=== PATIENT | male | born 1960 | race Caucasian/White ===

== ENCOUNTER 2017-12-12 16:58 | Inpatient (IN) ==
[2017-12-12 17:26] LABS: Basophils # 0.1 K/mcL (0.0-0.2); Basophils % 0.6 %; Eosinophils # 0.3 K/mcL (0.0-0.6); Eosinophils % 4.1 %; Hematocrit 38.1 % (37.5-50.1); Hemoglobin 13.2 g/dL (12.9-16.9); Immature Granulocytes % 0.6 % (0-4); Lymphocytes # 2.2 K/mcL (0.6-4.6); Lymphocytes % 26.2 %; Mean Corpuscular HGB Conc 34.6 g/dL (31.6-35.5); Mean Corpuscular Volume 95.3 fL (83.0-100.0); Mean Platelet Volume 9.2 fL (9.4-12.4); Monocytes # 0.5 K/mcL (0.0-1.3); Monocytes % 6.6 %; Neutrophils # 5.1 K/mcL (1.6-8.9); Platelet Count 198 K/mcL (140-400); Red Cell Distribution Width 15.3 % (11.5-14.5); Segmented Neutrophils % 61.9 %
[2017-12-12 17:32] LABS: Bilirubin,Urine Negative (Negative); Blood,Urine Negative (Negative); Clarity,Urine Clear (Clear); Color,Urine Yellow (Yellow); Glucose,Urine (UA) >=1000 mg/dL (Normal); Ketones,Urine Negative (Negative); Leukocyte Esterase,Urine Negative (Negative); Nitrite,Urine Negative (Negative); Protein,Urine 100 mg/dL (Neg-Trace); Specific Gravity,Urine 1.012 (1.010-1.025); Urobilinogen,Urine Normal (Normal)
[2017-12-12 17:34] LABS: Bacteria,Urine None Seen per hpf (None-Few); Hyaline Casts,Urine None Seen per lpf (None-Few); RBC,Urine 0-3 per hpf (0-3); Squamous Epithelial Cell,Urine Moderate per lpf (None-Few); WBC,Urine 0-3 per hpf (0-3)
[2017-12-12 17:56] LABS: Amphetamine Screen,Urine Negative ng/mL (Cutoff=1000); Barbiturate Screen,Urine Negative ng/mL (Cutoff=200); Benzodiazepines Screen,Urine Negative ng/mL (Cutoff=200); Cannabinoid Screen,Urine Negative ng/mL (Cutoff = 50); Cocaine Screen,Urine Negative ng/mL (Cutoff= 300); Opiate Screen,Urine Negative ng/mL (Cutoff=300); Phencyclidine Screen,Urine Negative ng/mL (Cutoff=25)
[2017-12-12 17:57] LABS: Acetaminophen < 10 mcg/mL (10-20); BUN/Creatinine Ratio 14 (6-26); Blood Urea Nitrogen 15 mg/dL (6-20); Carbon Dioxide 26 mEq/L (23-29); Chloride 97 mEq/L (98-107); Ethanol < 10 mg/dL (Less than 10); Glucose 228 mg/dL (70-105); Osmolality,Calculated 284 (280-300); Potassium 3.9 mEq/L (3.5-5.1); Salicylate < 2.5 mg/dL (15.0-30.0); Sodium 133 mEq/L (136-145); eGFR For Non-African Americans > 60 (> 60)
--- NOTE | 2017-12-12 18:17 | Emergency Department Note ---
Disposition Clinical Impression: Suicidal ideations Disposition: Admitted As Inpatient Condition: Good Instructions: Suicide Prevention for Adults (ED) Reasons to Return/Additional Instructions: YOU ARE TO BE TRANSFERRED TO THE PSYCH FACILITY THAT HAS ACCEPTED YOUR TRANSFER ARRANGED BY AN OUTSIDE FACILITY Referrals: NONE,PCP [Primary Care Provider] - Forms: ED Satisfaction Letter Time of Disposition: 18:19 Psych HPI - General Chief Complaint: ED Psychiatric Symptoms Stated Complaint: SI Time Seen by Provider: 12/12/17 17:06 Source: patient, EMS Mode of arrival: EMS Limitations: no limitations Nursing Notes Reviewed: Yes Vital Signs Reviewed: Yes - History of Present Illness HPI Narrative: 57 year old male presented to the ED for medical clearance after being accepted to a [facility] facility. Sil has a history of sucuidial attemp in the past iwth overdsoe and states taht he has had increased stressors in his life and the thoughts of hurting himself are increasing and that he has plans to hang himself today. Sil states that othersie he has a histroy of depression adn anxiety. Sil dnies any other symptoms at this time. He is an alcoholic and diabetic Constitutional: Denies: fever, chills, weakness, weight change Eyes: Denies: eye pain, eye discharge, vision change ENT ED: Denies: ear pain, throat pain, dental pain, hearing loss, epistaxis, congestion, dysphagia Cardiovascular: Denies: chest pain, palpitations, dyspnea on exertion, edema, syncope Respiratory: Denies: cough, dyspnea, wheezes, hemoptysis, stridor Gastrointestinal: Denies: abdominal pain, nausea, vomiting, diarrhea, constipation, hematemesis, melena, hematochezia Genitourinary: Denies: urgency, dysuria, frequency, hematuria Musculoskeletal: Denies: back pain, neck pain, arthralgia, myalgia Integumentary: Denies: rash, abrasion, lesions Neurological: Denies: headache, weakness, numbness, paresthesias, confusion, abnormal gait, vertigo Psychiatric: Reports: suicidal thoughts. Denies: anxiety, depression, homicidal thoughts, auditory hallucinations, visual hallucinations Endocrine: Denies: fatigue Hematological/Lymphatic: Denies: easy bleeding, easy bruising Allergic/Immunologic: Denies: facial swelling, urticaria Past Medical History - Past Medical History Medical history: Reports: diabetes, GERD, hyperlipidemia, hypertension Psychiatric history: Reports: depression, PTSD, prior suicide attempt - Social History Smoking Status: Current every day smoker Alcohol use: Reports: none Drug use: Reports: none Physical Exam - General Limitations: no limitations General appearance: alert, in no apparent distress - Head Head exam: atraumatic, normocephalic, normal inspection - Eye Eye exam: Present: normal appearance, PERRL, EOMI - Expanded Eye Exam Pupils: Bilateral: reactive - ENT ENT exam: normal exam, normal oropharynx, mucous membranes moist - Expanded ENT Exam External ear exam: Present: normal external inspection Mouth exam: Present: normal external inspection Teeth exam: Present: normal inspection Throat exam: Present: normal inspection - Neck Neck exam: Present: normal inspection, full ROM, trachea midline - Chest Chest inspection: Present: normal inspection, symmetric chest wall rise - Respiratory Respiratory exam: Present: normal lung sounds bilaterally - Cardiovascular Cardiovascular exam: Present: regular rate, normal rhythm, normal heart sounds - Abdominal Exam Abdominal exam: Present: soft, Non-Tender. Absent: tenderness, distention, guarding, rebound, rigidity - Extremities Exam Extremities exam: Present: normal inspection, full ROM. Absent: tenderness, pedal edema - Expanded Upper Extremity Exam Shoulder exam: Present: normal inspection, full ROM Arm exam: Present: normal inspection, full ROM Elbow exam: Present: normal inspection, full ROM Forearm/Wrist exam: Present: normal inspection, full ROM Hand exam: Present: normal inspection, full ROM Vascular exam: Normal: capillary refill, radial pulse - Expanded Lower Extremity Exam Hip/Pelvis exam: Present: normal inspection, full ROM Upper leg exam: Present: normal inspection, full ROM Knee exam: Present: normal inspection, full ROM Lower leg exam: Present: normal inspection, full ROM Ankle exam: Present: normal inspection, full ROM Foot/toe exam: Present: normal inspection, full ROM Neurovascular/Tendon exam: Absent: motor deficit, sensory deficit, tendon deficit - Back Exam Back exam: Present: normal inspection, full ROM. Absent: tenderness - Neurological Exam Neurological exam: Present: alert, oriented X3 - Expanded Neurological Exam Patient oriented to: Present: person, place, time Coma Scale Eye Opening: Spontaneous Coma Scale Motor Response: Obeys Commands Coma Scale Verbal Response: Oriented Coma Scale Total: 15 - Psychiatric Psychiatric exam: Present: normal affect, normal mood - Skin Skin exam: Present: warm, dry, intact, normal color Course Course Narrative: we will do labs and UA for medical clearance and then discharge to authorities for transport back to the [facility] facility - Reevaluation(s) Reevaluation #1: sil has been medically cleared. Transport is being arranged for transfer back. Sil is stable and calm Time: 18:19 - Consultations Consultation #1: discussed with 1A in passing and apparantly he has been accepted to . WE will place bed request and decision to admit now. Patient will be transported to the [address] [place] [address] department now Time: 18:26 Vital Signs Temperature 98.6 F 12/12/17 17:05 Pulse Rate 94 12/12/17 17:05 Respiratory Rate 18 12/12/17 17:05 Blood Pressure 173/108 12/12/17 17:05 O2 Sat by Pulse Oximetry 96 12/12/17 17:05 Temperature 98.6 F 12/12/17 17:05 Pulse Rate 94 12/12/17 17:05 Respiratory Rate 18 12/12/17 17:05 Blood Pressure 173/108 12/12/17 17:05 O2 Sat by Pulse Oximetry 96 12/12/17 17:05 Oxygen Delivery Oxygen Delivery Room Air Psych - Lab Data Result diagrams: 12/12/17 17:13 12/12/17 17:13 Lab Results 12/12/17 12/12/17 12/12/17 Range/Units 17:13 17:13 17:18 WBC 8.2 (4.3-11.1) K/mcL RBC 4.00 L (4.19-5.50) M/mcL Hgb 13.2 (12.9-16.9) g/dL Hct 38.1 (37.5-50.1) % MCV 95.3 (83.0-100.0) fL MCH 33.0 (28.0-33.3) pg MCHC 34.6 (31.6-35.5) g/dL RDW 15.3 H (11.5-14.5) % Plt Count 198 (140-400) K/mcL MPV 9.2 L (9.4-12.4) fL Immature Gran % 0.6 (0-4) % Seg Neutrophils % 61.9 % Lymphocytes % 26.2 % Monocytes % 6.6 % Eosinophils % 4.1 % Basophils % 0.6 % Neutrophils # 5.1 (1.6-8.9) K/mcL Lymphocytes # 2.2 (0.6-4.6) K/mcL Monocytes # 0.5 (0.0-1.3) K/mcL Eosinophils # 0.3 (0.0-0.6) K/mcL Basophils # 0.1 (0.0-0.2) K/mcL Sodium 133 L (136-145) mEq/L Potassium 3.9 (3.5-5.1) mEq/L Chloride 97 L (98-107) mEq/L Carbon Dioxide 26 (23-29) mEq/L BUN 15 (6-20) mg/dL Creatinine 1.11 (0.70-1.30) mg/dL Est GFR ( Amer) > 60 (> 60) Est GFR (Non-Af Amer) > 60 (> 60) BUN/Creatinine Ratio 14 (6-26) Glucose 228 H (70-105) mg/dL Calculated Osmolality 284 (280-300) Calcium 10.0 (8.6-10.3) mg/dL Urine Color Yellow (Yellow) Urine Clarity Clear (Clear) Urine pH 6.0 (5.0-8.0) pH Units Ur Specific Muse 1.012 (1.010-1.025) Urine Protein 100 H (Neg-Trace) mg/dL Urine Glucose (UA) >=1000 H (Normal) mg/dL Urine Ketones Negative (Negative) mg/dL Urine Blood Negative (Negative) Urine Nitrite Negative (Negative) Urine Bilirubin Negative (Negative) Urine Urobilinogen Normal (Normal) mg/dL Ur Leukocyte Esterase Negative (Negative) Urine Microscopic RBC 0-3 (0-3) per hpf Urine Microscopic WBC 0-3 (0-3) per hpf Ur Squamous Epith Cells Moderate H (None-Few) per lpf Urine Bacteria None Seen (None-Few) per hpf Hyaline Casts None Seen (None-Few) per lpf Salicylates < 2.5 L (15.0-30.0) mg/dL Urine Opiates Screen (Rpqpvb=894) ng/mL Acetaminophen < 10 L (10-20) mcg/mL Ur Barbiturates Screen (Yebpqg=484) ng/mL Ur Phencyclidine Scrn (Cutoff=25) ng/mL Ur Amphetamines Screen (Tfgjxg=5462) ng/mL U Benzodiazepines Scrn (Xaikpo=029) ng/mL Urine Cocaine Screen (Cutoff= 300) ng/mL U Marijuana (THC) Screen (Cutoff = 50) ng/mL Ur Drug Screen Interp Ethyl Alcohol < 10 (Less than 10) mg/dL 12/12/17 Range/Units 17:18 WBC (4.3-11.1) K/mcL RBC (4.19-5.50) M/mcL Hgb (12.9-16.9) g/dL Hct (37.5-50.1) % MCV (83.0-100.0) fL MCH (28.0-33.3) pg MCHC (31.6-35.5) g/dL RDW (11.5-14.5) % Plt Count (140-400) K/mcL MPV (9.4-12.4) fL Immature Gran % (0-4) % Seg Neutrophils % % Lymphocytes % % Monocytes % % Eosinophils % % Basophils % % Neutrophils # (1.6-8.9) K/mcL Lymphocytes # (0.6-4.6) K/mcL Monocytes # (0.0-1.3) K/mcL Eosinophils # (0.0-0.6) K/mcL Basophils # (0.0-0.2) K/mcL Sodium (136-145) mEq/L Potassium (3.5-5.1) mEq/L Chloride (98-107) mEq/L Carbon Dioxide (23-29) mEq/L BUN (6-20) mg/dL Creatinine (0.70-1.30) mg/dL Est GFR ( Amer) (> 60) Est GFR (Non-Af Amer) (> 60) BUN/Creatinine Ratio (6-26) Glucose (70-105) mg/dL Calculated Osmolality (280-300) Calcium (8.6-10.3) mg/dL Urine Color (Yellow) Urine Clarity (Clear) Urine pH (5.0-8.0) pH Units Ur Specific Muse (1.010-1.025) Urine Protein (Neg-Trace) mg/dL Urine Glucose (UA) (Normal) mg/dL Urine Ketones (Negative) mg/dL Urine Blood (Negative) Urine Nitrite (Negative) Urine Bilirubin (Negative) Urine Urobilinogen (Normal) mg/dL Ur Leukocyte Esterase (Negative) Urine Microscopic RBC (0-3) per hpf Urine Microscopic WBC (0-3) per hpf Ur Squamous Epith Cells (None-Few) per lpf Urine Bacteria (None-Few) per hpf Hyaline Casts (None-Few) per lpf Salicylates (15.0-30.0) mg/dL Urine Opiates Screen Negative (Gsodcf=256) ng/mL Acetaminophen (10-20) mcg/mL Ur Barbiturates Screen Negative (Lqjwwc=475) ng/mL Ur Phencyclidine Scrn Negative (Cutoff=25) ng/mL Ur Amphetamines Screen Negative (Uephfv=4765) ng/mL U Benzodiazepines Scrn Negative (Doafym=153) ng/mL Urine Cocaine Screen Negative (Cutoff= 300) ng/mL U Marijuana (THC) Screen Negative (Cutoff = 50) ng/mL Ur Drug Screen Interp See Below Ethyl Alcohol (Less than 10) mg/dL Psychiatric Medical Clearance - Medical Clearance Checklist Medical History: No Social History Section defined Current Vitals: Last Vital Signs Temp 98.6 F 12/12/17 17:05 Pulse 94 12/12/17 17:05 Resp 18 12/12/17 17:05 BP 173/108 12/12/17 17:05 Pulse Ox 96 12/12/17 17:05 Psychiatric Lab Panel: Drug Levels and Toxicity 12/12/17 12/12/17 17:13 17:18 Urine Opiates Screen Negative Acetaminophen < 10 L Ur Barbiturates Screen Negative Ur Phencyclidine Scrn Negative Ur Amphetamines Screen Negative U Benzodiazepines Scrn Negative Urine Cocaine Screen Negative U Marijuana (THC) Screen Negative Ethyl Alcohol < 10 Abnormal Labs: Abnormal lab results RBC 4.00 M/mcL (4.19-5.50) L 12/12/17 17:13 RDW 15.3 % (11.5-14.5) H 12/12/17 17:13 MPV 9.2 fL (9.4-12.4) L 12/12/17 17:13 Sodium 133 mEq/L (136-145) L 12/12/17 17:13 Chloride 97 mEq/L (98-107) L 12/12/17 17:13 Glucose 228 mg/dL (70-105) H 12/12/17 17:13 Urine Protein 100 mg/dL (Neg-Trace) H 12/12/17 17:18 Urine Glucose (UA) >=1000 mg/dL (Normal) H 12/12/17 17:18 Ur Squamous Epith Cells Moderate per lpf (None-Few) H 12/12/17 17:18 Salicylates < 2.5 mg/dL (15.0-30.0) L 12/12/17 17:13 Acetaminophen < 10 mcg/mL (10-20) L 12/12/17 17:13 Statement of Medical Clearance: I have evaluated the patient, reviewed diagnostic information, and certify that the patient's medical condition is sufficiently stable that transfer to the psychiatric unit does not pose a significant risk of deterioration.
[2017-12-12] MEDS ORDERED: MOM Conc 10 ML UD.LIQ PO PRN (19:08)
[2017-12-12] MEDS ORDERED: *HR* LORazepam 1 MG TABLET PO PRN (19:08)
[2017-12-12] MEDS ORDERED: Mag Hydrox/Al Hydrox/Simeth 30 ML UDC PO PRN (19:08)
[2017-12-12] MEDS ORDERED: *HR* LORazepam 2 MG/ML VIAL IM PRN (19:08)
[2017-12-12] MEDS ORDERED: Acetaminophen 325 MG TABLET PO PRN (19:08)
[2017-12-12] MEDS ORDERED: Haloperidol Lactate 5 MG/ML VIAL IM PRN (19:08)
[2017-12-13] MEDS: FLUoxetine 20 MG CAPSULE PO SCH (08:52)
[2017-12-13] MEDS: hydroCHLOROthiazide 25 MG TABLET PO SCH (08:52)
[2017-12-13] MEDS: Lisinopril 20 MG TABLET PO SCH (08:52)
[2017-12-13] MEDS ORDERED: BuPROPion SR (12 HR) 100 MG TABLET PO SCH (09:00)
[2017-12-13] MEDS: Insulin LISPRO 300 UNITS/3 ML VIAL SQ SCH ×3 (09:00→20:28)
[2017-12-13] MEDS: Aspirin 325 MG TABLET PO SCH (11:19)
[2017-12-13] MEDS: *HR* Pioglitazone 15 MG TABLET PO SCH (11:19)
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
[2017-12-13] MEDS ORDERED: Insulin DETEMIR 100 UNIT/ML X5UNITS SQ SCH (21:00)
[2017-12-13] MEDS: Insulin DETEMIR 100 UNIT/ML X5UNITS SQ SCH (22:39)
[2017-12-14] MEDS: Aspirin 325 MG TABLET PO SCH (08:44)
[2017-12-14] MEDS: *HR* Pioglitazone 15 MG TABLET PO SCH (08:44)
[2017-12-14] MEDS: FLUoxetine 20 MG CAPSULE PO SCH (08:44)
[2017-12-14] MEDS: Insulin LISPRO 300 UNITS/3 ML VIAL SQ SCH ×4 (08:49→22:14)
--- NOTE | 2017-12-14 11:04 | Psychiatry Progress Note ---
Date of Encounter: 12/14/17 Time of Encounter: 11:00 Subjective Interval history: Admission records reviewed. Case discussed was nursing staff. Patient seen for follow-up. Staff report patient is cooperative, medication compliant and denies suicidal ideation. Diabetic control is improving, we will continue to monitor his blood pressure and blood sugar as he is taken his medication. He denies any problem with sleep or appetite. Review of Systems Psychiatric: Reports: abnormal sleep pattern, suicidal ideation Results - Vital Signs Vital Signs: Temp Pulse Resp BP Pulse Ox 97.7 F 88 16 94/67 96 12/14/17 09:00 12/14/17 09:00 12/14/17 09:00 12/14/17 09:00 12/12/17 17:05 - Labs Labs: Laboratory Results - last 24 hr 12/13/17 12/13/17 12/13/17 11:35 16:14 20:27 POC Glucose 204 H 229 H 306 H 12/14/17 08:18 POC Glucose 250 H Assessment and Plan (1) Major depressive disorder, recurrent severe without psychotic features Current visit: Yes Status: Acute Plan: Continue hospitalization, Close observation, Suicide Precautions per unit protocol, Encourage participation in unit milieu, Group Therapy, Monitor sleep, Monitor appetite Risks, benefits, side effects, alternatives discussed w/pt: Yes Patient agreeable to treatment: Yes Consult Discharge Plan - [facility] 1:00 pm (The above appointment is with Nadege Oliver for outpatient mental health counseling and case managment services. You will also see Radha Cardoza for outpatient psychiatric assessment and medication management services on 01/16/2018 at 9:10am.) Psychiatry Exam - Constitutional Vitals: Temp Pulse Resp BP Pulse Ox 97.7 F 88 16 94/67 96 12/14/17 09:00 12/14/17 09:00 12/14/17 09:00 12/14/17 09:00 12/12/17 17:05 General appearance: age & developmentally appropriate, well-groomed, well- nourished - Musculoskeletal Gait: normal Station: relaxed Strength & Tone: normal for patient - Psychiatric Patient Orientation: Yes Person, Yes Time, Yes Place Level of alertness: Alert Behavior: calm, cooperative Psychomotor activity: Normal Eye Contact: Maintains Eye Contact Mood Description: Euthymic/stable Affect description: congruent with mood, full range Speech Volume: Normal Speech pattern: normal rate, normal rhythm, normal tone, fluent, spontaneous Language & Vocabulary: consistent with education Thought Process: Linear, Goal Oriented Thought Content: No Suicidal ideation, No Homicidal ideation, No Overt delusions Perceptual Disturbances: No Auditory hallucinations, No Visual hallucinations Attention Span Ability: Capable of Focused Attention Memory Description: Grossly Intact Patient Reliability: Reliable Historian Fund of knowledge: Yes abstraction ability, Yes aware of current events Intelligence Estimate: Average Judgment: Limited Insight: Partial
[2017-12-14] MEDS ORDERED: *HR* Dextrose 50 % in Water (Syg) 50 ML SYRINGE IVP PRN (15:17)
[2017-12-14] MEDS ORDERED: Dextrose Gel 15 GM/37.5 ML TUBE PO PRN ×2 (15:17)
[2017-12-14] MEDS ORDERED: D5% in Water 1,000 ML IVC PRN (15:17)
--- NOTE | 2017-12-14 19:44 | Internal Medicine Consult Note ---
Date of Encounter: 12/14/17 Time of Encounter: 14:30 - Assessment and plan (1) Hypotension Current Visit: Yes Status: Acute Assessment and plan: Pt has hypotension after receiving prazosin today. Would recommend stopping this drug and following BP. Will restart his BP meds if it increases. Qualifiers: Hypotension type: hypotension due to drug Qualified Code(s): I95.2 - Hypotension due to drugs (2) Diabetes Current Visit: Yes Status: Chronic Assessment and plan: Currently uncontrolled. Medications adjusted and insulin sliding scale added. Will follow along with you. 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 Following. Qualifiers: Hypertension type: essential hypertension Qualified Code(s): I10 - Essential (primary) hypertension - Time Spent With Patient Total time spent is greater than 50% in coordination of care (as documented) at patient's floor/unit and/or counseling patient: Internal Medicine - CN: HPI - Data of Consult Patient: new to practice Consult date: 12/14/17 Requesting Physician: Yobany Angel MD - Consult Narrative Reason for consult: Hyperglycemia History of present illness: Mr. Mcguire is a 57 year old male currently in 1A with hx of diabetes and hypertension. Blood sugars are elevated and blood pressure low. Mr Mcguire has hx of DM which is uncontrolled. He says his sugars are normally around 300 and below 260 is low for him. He is feeling dizzy right now when he stands up. No fever or chills. No CP or SOB. Past Med Surg Social Fam HX - Past Medical History Medical history: diabetes, GERD, hyperlipidemia, hypertension Additional medical history: neuropathy with loss of feeling to bilateral feet Psychiatric history: depression, PTSD - Past Surgical History Surgical History: herniorrhaphy Additional surgical history: Right Arm surgery - Social History Smoking Status: Current every day smoker Packs per day: 4-5 cigarettes per day Smokeless Tobacco Status: No Alcohol use: none Drug use: none - Constitutional Constitutional: fatigue - EENT Eyes: no change in vision, no pain Ears: no decreased hearing Nose, mouth and throat: no dry mouth, no sore throat - Cardiovascular Cardiovascular ROS IM: no chest pain, no dyspnea, no dyspnea on exertion - Respiratory Respiratory: no dyspnea, no wheezing - Gastrointestinal Gastrointestinal: no diarrhea, no melena - Genitourinary Genitourinary ROS male: urinary frequency, no dysuria - Musculoskeletal Musculoskeletal ROS IM: no joint swelling - Integumentary Integumentary IM: no rash - Neurological Neurological ROS: dizziness, no tingling - Endocrine Endocrine IM: polydipsia, polyuria - Hematologic/Lymphatic Hematologic/Lymphatic: no easy bleeding - Allergic/Immunologic Allergic/Immunologic: no throat swelling, no wheezing Internal Medicine - CN: Meds Aspirin Enteric Coated [Aspirin EC] 325 mg PO DAILY 12/12/17 [History] Atorvastatin Calcium [Lipitor] 40 mg PO DAILY 12/12/17 [History] BuPROPion SR (12 HR) [Wellbutrin SR] 100 mg PO BID 12/12/17 [History] Cyanocobalamin (Vitamin B-12) [Vitamin B12] 500 mcg PO DAILY 12/12/17 [History] FLUoxetine HCl [Fluoxetine HCl] 80 mg PO DAILY 12/12/17 [History] Insulin ASPART [NovoLOG] 20 unit SQ TID 12/12/17 [History] Insulin Glargine,Hum.rec.anlog [Basaglar Kwikpen U-100] 60 unit SQ HS 12/12/17 [ History] Lisinopril [Zestril] 20 mg PO DAILY 12/12/17 [History] Metoclopramide [Reglan] 10 mg PO QID PRN 12/12/17 [History] Omeprazole [PriLOSEC] 40 mg PO DAILY 12/12/17 [History] Pioglitazone HCl [Actos] 15 mg PO DAILY 12/12/17 [History] hydroCHLOROthiazide [Hydrochlorothiazide] 25 mg PO DAILY 12/12/17 [History] Dulaglutide [Trulicity] 0.75 mg SQ QWEEK 12/13/17 [History] 3 Allergy/AdvReac Type Severity Reaction Status Date / Time codeine Allergy Rash Verified 12/12/17 19:56 Hospitalist - CN: Exam - Constitutional Vitals: Temp Pulse Resp BP Pulse Ox 97.7 F 88 16 94/67 96 12/14/17 09:00 12/14/17 09:00 12/14/17 09:00 12/14/17 09:00 12/12/17 17:05 General appearance IM: Present: A&O X 3, pleasant, answers questions appropriately Exam: See below - Head Head exam: Present: normocephalic - Eye Eye exam: Present: EOMI, conjuntiva pink - ENT ENT exam: Present: mucous membranes dry - Neck Neck exam general surgery: Present: normal inspection. Absent: thyromegaly - Respiratory Respiratory exam: Present: CTAB. Absent: rales, rhonchi, wheezes - Cardiovascular Cardiovascular exam IM: Present: RRR. Absent: tachycardia - GI/Abdominal GI/Abdominal exam IM: Present: soft. Absent: tenderness - Extremities Exam Extremities exam IM: Present: warm. Absent: tenderness - Neurological Exam Neurological exam: Present: alert, oriented X3, no focal deficits - Skin Skin exam IM: Present: dry, warm. Absent: rash Internal Medicine - CN: Reslt - Labs CBC & Chem 7: 12/12/17 17:13 12/12/17 17:13 Consult Discharge Plan - Plan Referrals: [facility] [Outside] - 12/19/17 1:00 pm (The above appointment is with Nadege Oliver for outpatient mental health counseling and case managment services. You will also see Radha Cardoza for outpatient psychiatric assessment and medication management services on 01/16/2018 at 9:10am.)
[2017-12-14] MEDS: Insulin DETEMIR 100 UNIT/ML X5UNITS SQ SCH (20:02)
[2017-12-14] MEDS: traZODone 50 MG TABLET PO PRN (20:03)
[2017-12-14] MEDS: hydrOXYzine pamoate 25 MG CAPSULE PO PRN (20:03)
[2017-12-14] MEDS: Lisinopril 20 MG TABLET PO SCH (22:15)
[2017-12-14] MEDS: hydroCHLOROthiazide 25 MG TABLET PO SCH (22:15)
[2017-12-15] MEDS: Aspirin 325 MG TABLET PO SCH (08:26)
[2017-12-15] MEDS: Insulin LISPRO 300 UNITS/3 ML VIAL SQ SCH ×4 (08:26→17:02)
[2017-12-15] MEDS: FLUoxetine 20 MG CAPSULE PO SCH (08:26)
[2017-12-15] MEDS: *HR* Pioglitazone 15 MG TABLET PO SCH (08:26)
[2017-12-15] MEDS ORDERED: NON-FORMULARY MEDICATION 1 EACH EACH (Omeprazole [Prilosec] 40 MG) PO SCH (09:00)
--- NOTE | 2017-12-15 12:26 | Psychiatry Progress Note ---
Date of Encounter: 12/15/17 Time of Encounter: 11:15 Subjective Interval history: Patient seen for follow-up. Case discussed was nursing staff. Staff report patient is medication compliant, he was seen by medical consult to adjust his blood sugar and blood pressure and we will continue to monitor. Patient denies any problem with sleep, denies suicidal ideation. He participated in groups and interacts appropriately with peers and staff. Review of Systems Psychiatric: Reports: abnormal sleep pattern, suicidal ideation Results - Vital Signs Vital Signs: Temp Pulse Resp BP Pulse Ox 97.4 F L 85 14 116/81 96 12/15/17 08:58 12/15/17 08:58 12/15/17 08:58 12/15/17 08:58 12/12/17 17:05 - Labs Labs: Laboratory Results - last 24 hr 12/14/17 12/14/17 12/14/17 14:05 16:52 19:43 POC Glucose 223 H 197 H 242 H 12/15/17 12/15/17 08:10 11:32 POC Glucose 200 H 190 H Assessment and Plan (1) Major depressive disorder, recurrent severe without psychotic features Current visit: Yes Status: Acute Plan: Continue hospitalization, Close observation, Suicide Precautions per unit protocol, Encourage participation in unit milieu, Group Therapy, Monitor sleep, Monitor appetite Risks, benefits, side effects, alternatives discussed w/pt: Yes Patient agreeable to treatment: Yes Consult Discharge Plan - Plan Referrals: [facility] [Outside] - 12/19/17 1:00 pm (The above appointment is with Nadege Oliver for outpatient mental health counseling and case managment services. You will also see Radha Cardoza for outpatient psychiatric assessment and medication management services on 01/16/2018 at 9:10am.) Psychiatry Exam - Constitutional Vitals: Temp Pulse Resp BP Pulse Ox 97.4 F L 85 14 116/81 96 12/15/17 08:58 12/15/17 08:58 12/15/17 08:58 12/15/17 08:58 12/12/17 17:05 General appearance: age & developmentally appropriate, well-nourished, disheveled - Musculoskeletal Gait: normal Station: relaxed Strength & Tone: normal for patient - Psychiatric Patient Orientation: Yes Person, Yes Time, Yes Place Level of alertness: Alert Behavior: calm, cooperative Psychomotor activity: Normal Eye Contact: Maintains Eye Contact Mood Description: Euthymic/stable Affect description: congruent with mood, full range Speech Volume: Normal Speech pattern: normal rate, normal rhythm, normal tone, fluent, spontaneous Language & Vocabulary: consistent with education Thought Process: Linear, Goal Oriented Thought Content: No Suicidal ideation, No Homicidal ideation, No Overt delusions Perceptual Disturbances: No Auditory hallucinations, No Visual hallucinations Attention Span Ability: Capable of Focused Attention Memory Description: Grossly Intact Patient Reliability: Reliable Historian Fund of knowledge: Yes abstraction ability, Yes aware of current events Intelligence Estimate: Average Judgment: Limited Insight: Partial
[2017-12-15] MEDS ORDERED: Insulin LISPRO 300 UNITS/3 ML VIAL SQ SCH ×2 (16:30→21:00)
[2017-12-15] MEDS: Insulin DETEMIR 100 UNIT/ML X5UNITS SQ SCH (21:35)
[2017-12-15] MEDS: traZODone 50 MG TABLET PO PRN (21:36)
[2017-12-15] MEDS: hydrOXYzine pamoate 25 MG CAPSULE PO PRN (21:36)
[2017-12-16] MEDS: *HR* Pioglitazone 15 MG TABLET PO SCH (08:16)
[2017-12-16] MEDS: FLUoxetine 20 MG CAPSULE PO SCH (08:16)
[2017-12-16] MEDS: Aspirin 325 MG TABLET PO SCH (08:16)
[2017-12-16] MEDS: Insulin LISPRO 300 UNITS/3 ML VIAL SQ SCH ×2 (08:17→11:45)
--- NOTE | 2017-12-16 10:44 | Discharge Summary ---
Date of Encounter: 12/16/17 Time of Encounter: 10:39 Diagnosis - Discharge Diagnosis (1) Major depressive disorder, recurrent severe without psychotic features Status: Acute Medications - Discharge Medications Aspirin Enteric Coated [Aspirin EC] 325 mg PO DAILY 12/12/17 [History] Cyanocobalamin (Vitamin B-12) [Vitamin B12] 500 mcg PO DAILY 12/12/17 [History] Insulin ASPART [NovoLOG] 20 unit SQ TID 12/12/17 [History] Insulin Glargine,Hum.rec.anlog [Basaglar Kwikpen U-100] 60 unit SQ HS 12/12/17 [ History] Lisinopril [Zestril] 20 mg PO DAILY 12/12/17 [History] Metoclopramide [Reglan] 10 mg PO QID PRN 12/12/17 [History] Omeprazole [PriLOSEC] 40 mg PO DAILY 12/12/17 [History] Pioglitazone HCl [Actos] 15 mg PO DAILY 12/12/17 [History] hydroCHLOROthiazide [Hydrochlorothiazide] 25 mg PO DAILY 12/12/17 [History] Dulaglutide [Trulicity] 0.75 mg SQ QWEEK 12/13/17 [History] Atorvastatin [Lipitor] 40 mg PO HS tablet 12/16/17 [Rx] FLUoxetine HCl [Prozac] 40 mg PO DAILY capsule 12/16/17 [Rx] 3 Allergy/AdvReac Type Severity Reaction Status Date / Time codeine Allergy Rash Verified 12/12/17 19:56 Provider Date of admission: 12/12/17 18:36 Primary care physician: PCP NONE Consults: 12/14/17 14:29 Consult to Hospitalist [CONS] Routine Consulting Provider: Hospitalist Hal Reason for Consult: Management of blood glucose levels and bp Time Notified: 14:30 Call Completed: Yes Discharging clinician: Yobany Angel Psychiatry Exam - Constitutional Vitals: Temp Pulse Resp BP Pulse Ox 98.0 F 84 16 109/77 96 12/15/17 20:25 12/15/17 20:25 12/15/17 20:25 12/15/17 20:25 12/12/17 17:05 General appearance: age & developmentally appropriate, well-nourished, unkempt - Musculoskeletal Gait: normal Station: relaxed Strength & Tone: normal for patient - Psychiatric Patient Orientation: Yes Person, Yes Time, Yes Place Level of alertness: Alert Behavior: calm, cooperative Psychomotor activity: Normal Eye Contact: Maintains Eye Contact Mood Description: Euthymic/stable Affect description: congruent with mood, full range Speech Volume: Normal Speech pattern: normal rate, normal rhythm, normal tone, fluent, spontaneous Language & Vocabulary: consistent with education Thought Process: Linear, Goal Oriented Thought Content: No Suicidal ideation, No Homicidal ideation, No Overt delusions Perceptual Disturbances: No Auditory hallucinations, No Visual hallucinations Attention Span Ability: Capable of Focused Attention Memory Description: Grossly Intact Patient Reliability: Reliable Historian Fund of knowledge: Yes abstraction ability, Yes aware of current events Intelligence Estimate: Average Judgment: Limited Insight: Partial Hospital Course Hospital course: Mr. Mcguire is a 57 year old male admitted for suicidal ideation. For details of the admission please see H&P On the units patient was started on his medication, he was encouraged to participate in group activities. Medical consult was requested to address patient to better control and blood pressure adjustment due to his noncompliance prior to admission. Patient reported improved sleep and appetite denied any anxiety or panic attacks and denies suicidal ideation and participated in activities. Discharge plans were completed by social insurance analyst for patient to return to the exit program. On discharge day patient was medically stable tolerating medication without any side effects denies any problem with sleep or appetite future oriented and looking forward to discharge and denied any suicidal thoughts or self-harm. Patient is discharged in stable condition. - Time Spent with Patient Total time spent providing and/or coordinating discharge services: Less than 30 minutes Assessment and Plan - Patient/Caregiver Discharge Instructions Activity: resume usual activities as tolerated Diet: regular diet - Follow up Plan Follow up with: Yoan Rojas [Outside] - 12/19/17 1:00 pm (The above appointment is with Nadege Oliver for outpatient mental health counseling and case managment services. You will also see Radha Cardoza for outpatient psychiatric assessment and medication management services on 01/16/2018 at 9:10am.) Functional capacity at discharge: independent ambulation Overall status at discharge: Stable Disposition: Home, Self-Care Quality - Multiple Antipsychotics Patient discharged on 2 or more antipsychotic medications: No Procedures - Procedures Procedures: Medication Management, Crisis Stabilization, Supportive Therapy, Group Therapy, Psychoeducational Therapy
[2017-12-16 11:10] VITALS: BP 114/77
[2017-12-17] MEDS ORDERED: TRULICITY SQ SCH (09:00)
== END 2017-12-16 12:47 | disposition home or self-care (01) | DRG 751 ==
LOC: EMEROOARM 16:58 → 1ANU 18:36 → SUATTDRO 18:36 → 1ANU 19:29
PROVIDERS: ADMIT Psychiatry & Neurology Forensic Psychiatry; ATTEND Psychiatry & Neurology Psychiatry

== ENCOUNTER 2018-05-20 16:57 | Observation (INO) ==
--- NOTE | 2018-05-20 17:01 | Emergency Department Note ---
Disposition Clinical Impression: Hyperglycemia, Hyponatremia, Elevated troponin, JUDITH (acute kidney injury) Pneumonia Qualifiers: Pneumonia type: due to unspecified organism Laterality: left Lung location: unspecified part of lung Qualified Code(s): J18.9 - Pneumonia, unspecified organism Chest pain Qualifiers: Chest pain type: unspecified Qualified Code(s): R07.9 - Chest pain, unspecified Disposition: Admitted As Inpatient Condition: Fair Time of Disposition: 20:11 Chest Pain HPI - General Chief Complaint: ED Chest Pain Stated Complaint: Chest Pain, High blood sugar Time Seen by Provider: 05/20/18 16:58 Source: patient Mode of arrival: ambulatory Limitations: no limitations Vital Signs Reviewed: Yes Nursing Notes Reviewed: Yes - History of Present Illness HPI Narrative: Patient is a 57-year-old male with past medical history of hypertension, hyperlipidemia, diabetes, recent diagnosis of pneumonia. He presents today via EMS due to concern for shortness of breath, cough, chest discomfort. Patient states that he is currently being treated for pneumonia outpatient, has been on antibiotic to the past week. He is unsure of what the antibiotic was that he is taking. He states that he has been having some left-sided chest pain, mainly worsened with deep inspiration and cough, also admits to subjective fevers. Denies any vomiting. Denies any abdominal pain. Denies any dysuria, hematuria. Denies any significant cardiac history. EMS also checked the patient's blood sugar on the way in and his blood sugar was read as critically high. Patient states that he is on metformin and insulin home and has not missed any doses. Denies ever being in DKA in the past. - Related Data Home Medications Medication Instructions Recorded Confirmed Aspirin Enteric Coated [Aspirin EC] 325 mg PO DAILY 12/12/17 12/12/17 Cyanocobalamin (Vitamin B-12) 500 mcg PO DAILY 12/12/17 12/12/17 [Vitamin B12] Insulin ASPART [NovoLOG] 20 unit SQ TID 12/12/17 12/12/17 Insulin Glargine,Hum.rec.anlog 60 unit SQ HS 12/12/17 12/12/17 [Basaglar Kwikpen U-100] Lisinopril [Zestril] 20 mg PO DAILY 12/12/17 12/12/17 Metoclopramide [Reglan] 10 mg PO QID PRN 12/12/17 12/12/17 Omeprazole [PriLOSEC] 40 mg PO DAILY 12/12/17 12/12/17 Pioglitazone HCl [Actos] 15 mg PO DAILY 12/12/17 12/12/17 hydroCHLOROthiazide 25 mg PO DAILY 12/12/17 12/12/17 [Hydrochlorothiazide] Dulaglutide [Trulicity] 0.75 mg SQ QWEEK 12/13/17 12/13/17 Previous Rx's Medication Instructions Recorded Atorvastatin [Lipitor] 40 mg PO HS tablet 12/16/17 FLUoxetine HCl [Prozac] 40 mg PO DAILY capsule 12/16/17 Allergies Allergy/AdvReac Type Severity Reaction Status Date / Time codeine Allergy Rash Verified 12/12/17 19:56 All systems ED: reviewed and negative except as stated. Constitutional: Reports: fever Cardiovascular: Reports: chest pain Respiratory: Reports: cough, dyspnea, sputum production Gastrointestinal: Denies: abdominal pain, nausea, vomiting, diarrhea, constipation Genitourinary: Denies: urgency, dysuria Integumentary: Denies: rash Neurological: Denies: headache, weakness, numbness, paresthesias Psychiatric: Denies: anxiety Chest Pain PMH - Past Medical History Medical history: Reports: diabetes, GERD, hyperlipidemia, hypertension Surgical history: Reports: herniorrhaphy Psychiatric history: Reports: depression, PTSD - Social History Smoking Status: Current every day smoker Alcohol use: Reports: none Drug use: Reports: none Physical Exam - General Limitations: no limitations General appearance: alert, in no apparent distress - Head Head exam: atraumatic, normocephalic, normal inspection - Eye Eye exam: Present: normal appearance, PERRL, EOMI - ENT ENT exam: normal exam, normal oropharynx, mucous membranes moist - Neck Neck exam: Present: normal inspection, full ROM, trachea midline - Chest Chest inspection: Present: normal inspection, symmetric chest wall rise - Respiratory Respiratory exam: Present: other (Coarse breath sounds throughout with mild wheezing throughout) - Cardiovascular Cardiovascular exam: Present: regular rate, normal rhythm, normal heart sounds - Abdominal Exam Abdominal exam: Present: soft, Non-Tender. Absent: tenderness, distention, guarding, rebound, rigidity - Extremities Exam Extremities exam: Present: normal inspection, full ROM. Absent: tenderness, pedal edema - Neurological Exam Neurological exam: Present: alert, oriented X3 - Psychiatric Psychiatric exam: Present: normal affect, normal mood - Skin Skin exam: Present: warm, dry, intact, normal color Course Course Narrative: Patient was satting around 90% on presentation on room air. Does not usually wear any home oxygen. Coarse breath sounds throughout with wheezing. Chest x- ray shows left-sided pneumonia. Labs show elevated glucose level, hyponatremia, acute kidney injury, elevated troponin level. Hyponatremia may be secondary to elevated glucose level and may also be elevated due to possible Legionella as patient has pneumonia. Patient was given normal saline bolus, 10 units of IV insulin, potassium. We started Rocephin and azithromycin for pneumonia coverage. Patient was given DuoNeb 3 and prednisone for wheezing. He continues to require 2 L nasal cannula oxygen to maintain saturation above 90%. We will admit to the hospitalist for further care. Hospitalist requested that we obtain urine osmolality, urine sodium and urinalysis, blood cultures. Aspirin given for elevated trop. EKG showed no acute ST changes. Chest X-Ray 05/20/18 16:59 IMPRESSION: Infiltrates in the left mid and lower lung field, concerning for pneumonia. Follow-up radiographs in 4-6 weeks are recommended. D/ / 05/20/2018 17:37:01 Elmo Heredia MD / [facility] Interpreting Provider: Elmo Heredia MD Vital Signs Temperature 99.0 F 05/20/18 17:00 Pulse Rate 95 05/20/18 17:00 Respiratory Rate 18 05/20/18 17:00 Blood Pressure 130/82 05/20/18 17:00 O2 Sat by Pulse Oximetry 93 05/20/18 17:00 Temperature 99.0 F 05/20/18 17:00 Pulse Rate 104 05/20/18 19:55 Respiratory Rate 18 05/20/18 19:55 Blood Pressure 117/54 05/20/18 19:55 O2 Sat by Pulse Oximetry 94 05/20/18 19:55 Oxygen Delivery Oxygen Delivery Room Air Chest Pain - MDM Narrative Medical decision making narrative: Patient was satting around 90% on presentation on room air. Does not usually wear any home oxygen. Coarse breath sounds throughout with wheezing. Chest x- ray shows left-sided pneumonia. Labs show elevated glucose level, hyponatremia, acute kidney injury, elevated troponin level. Hyponatremia may be secondary to elevated glucose level and may also be elevated due to possible Legionella as patient has pneumonia. Patient was given normal saline bolus, 10 units of IV insulin, potassium. We started Rocephin and azithromycin for pneumonia coverage. Patient was given DuoNeb 3 and prednisone for wheezing. He continues to require 2 L nasal cannula oxygen to maintain saturation above 90%. We will admit to the hospitalist for further care. Hospitalist requested that we obtain urine osmolality, urine sodium and urinalysis, blood cultures. - Medical Records Medical records reviewed: Yes I reviewed the patient's medical records. - Lab Data Lab results reviewed: Yes I reviewed the patient's lab results. Result diagrams: 05/20/18 17:15 05/20/18 17:15 Lab Results 05/20/18 05/20/18 05/20/18 Range/Units 17:15 17:15 17:15 WBC 11.1 (4.3-11.1) K/mcL RBC 3.77 L (4.19-5.50) M/mcL Hgb 11.5 L (12.9-16.9) g/dL Hct 34.7 L (37.5-50.1) % MCV 92.0 (83.0-100.0) fL MCH 30.5 (28.0-33.3) pg MCHC 33.1 (31.6-35.5) g/dL RDW 16.0 H (11.5-14.5) % Plt Count 171 (140-400) K/mcL MPV 10.4 (9.4-12.4) fL Immature Gran % 1.3 (0-4) % Seg Neutrophils % 84.1 % Lymphocytes % 7.6 % Monocytes % 6.4 % Eosinophils % 0.2 % Basophils % 0.4 % Neutrophils # 9.3 H (1.6-8.9) K/mcL Lymphocytes # 0.8 (0.6-4.6) K/mcL Monocytes # 0.7 (0.0-1.3) K/mcL Eosinophils # 0.0 (0.0-0.6) K/mcL Basophils # 0.0 (0.0-0.2) K/mcL PT 12.3 H (9.4-12.1) Seconds INR 1.1 APTT 24.8 L (26.0-36.0) Seconds VBG pH (7.32-7.42) pH Units VBG pCO2 (41-51) mmHg VBG pO2 (25-50) mmHg VBG HCO3 (21-27) mEq/L Sodium 118 L* (136-145) mEq/L Potassium 3.6 (3.5-5.1) mEq/L Chloride 80 L (98-107) mEq/L Carbon Dioxide 26 (23-29) mEq/L BUN 44 H (6-20) mg/dL Creatinine 1.74 H (0.70-1.30) mg/dL Est GFR ( Amer) 49 L (> 60) Est GFR (Non-Af Amer) 40 L (> 60) BUN/Creatinine Ratio 25 (6-26) Glucose 720 H* (70-105) mg/dL Calculated Osmolality 292 (280-300) Calcium 9.1 (8.6-10.3) mg/dL Troponin I 0.05 H* (< 0.04) ng/mL Beta-Hydroxybutyric Acd (0.02-0.27) mmol/L 05/20/18 05/20/18 Range/Units 17:15 17:46 WBC (4.3-11.1) K/mcL RBC (4.19-5.50) M/mcL Hgb (12.9-16.9) g/dL Hct (37.5-50.1) % MCV (83.0-100.0) fL MCH (28.0-33.3) pg MCHC (31.6-35.5) g/dL RDW (11.5-14.5) % Plt Count (140-400) K/mcL MPV (9.4-12.4) fL Immature Gran % (0-4) % Seg Neutrophils % % Lymphocytes % % Monocytes % % Eosinophils % % Basophils % % Neutrophils # (1.6-8.9) K/mcL Lymphocytes # (0.6-4.6) K/mcL Monocytes # (0.0-1.3) K/mcL Eosinophils # (0.0-0.6) K/mcL Basophils # (0.0-0.2) K/mcL PT (9.4-12.1) Seconds INR APTT (26.0-36.0) Seconds VBG pH 7.32 (7.32-7.42) pH Units VBG pCO2 53 H (41-51) mmHg VBG pO2 56 H (25-50) mmHg VBG HCO3 28 H (21-27) mEq/L Sodium (136-145) mEq/L Potassium (3.5-5.1) mEq/L Chloride (98-107) mEq/L Carbon Dioxide (23-29) mEq/L BUN (6-20) mg/dL Creatinine (0.70-1.30) mg/dL Est GFR ( Amer) (> 60) Est GFR (Non-Af Amer) (> 60) BUN/Creatinine Ratio (6-26) Glucose (70-105) mg/dL Calculated Osmolality (280-300) Calcium (8.6-10.3) mg/dL Troponin I (< 0.04) ng/mL Beta-Hydroxybutyric Acd 0.36 H (0.02-0.27) mmol/L - Radiology Data Radiology results reviewed: Yes I reviewed the patient's radiology results. Chest X-Ray 05/20/18 16:59 IMPRESSION: Infiltrates in the left mid and lower lung field, concerning for pneumonia. Follow-up radiographs in 4-6 weeks are recommended. D/ / 05/20/2018 17:37:01 [facility] Inter[facility] Provider: Elmo Heredia MD - EKG Data EKG attestation: Yes I reviewed and interpreted this EKG. EKG results narrative: 05/20/2018 at 17:13. Sinus rhythm. Rate 94. SD 198. QRS 90. QTC 476. Normal axis. No acute ST elevation or depression. Attestation Statement - Attestation Attestation: I, Aayush Duffy, examined this patient and my medical decision-making was reviewed with the PALLIATIVE SENIOR NP/PA/Advanced Practice Nurse/Resident Physician. I agree with the documented findings, disposition and treatment plan as described except to the extent set forth below. 57-year-old male presents emergency Department with concerns of difficulty in breathing and chest pain. Patient also states that he has had an elevated sugar over the past few days. Patient was recently being treated for pneumonia as outpatient. Patient has pneumonia on chest x-ray. Initial troponin negative. EKG did not show evidence of acute STEMI or other dysrhythmia. Patient will be admitted to the hospitalist for further care and evaluation.
[2018-05-20] MEDS ORDERED: predniSONE 20 MG TABLET PO ONE (17:12)
[2018-05-20] MEDS ORDERED: Ipratropium/Albuterol Neb 3 ML IH ONE (17:12)
[2018-05-20] MEDS ORDERED: Aspirin 325 MG TABLET PO ONE (17:12)
[2018-05-20] MEDS ORDERED: 0.9 % Sodium Chloride 1,000 ML ONE (17:17)
[2018-05-20] MEDS ORDERED: 0.9 % Sodium Chloride 1,000 ML IVC ONE (17:17)
[2018-05-20 17:46] LABS: Basophils % 0.4 %; Eosinophils % 0.2 %; Hematocrit 34.7 % (37.5-50.1); Hemoglobin 11.5 g/dL (12.9-16.9); Immature Granulocytes % 1.3 % (0-4); Lymphocytes # 0.8 K/mcL (0.6-4.6); Lymphocytes % 7.6 %; Mean Corpuscular HGB Conc 33.1 g/dL (31.6-35.5); Mean Corpuscular Hemoglobin 30.5 pg (28.0-33.3); Mean Platelet Volume 10.4 fL (9.4-12.4); Monocytes # 0.7 K/mcL (0.0-1.3); Monocytes % 6.4 %; Neutrophils # 9.3 K/mcL (1.6-8.9); Platelet Count 171 K/mcL (140-400); Red Blood Count 3.77 M/mcL (4.19-5.50); Segmented Neutrophils % 84.1 %
[2018-05-20 17:50] LABS: VBG HCO3 28 mEq/L (21-27); VBG PCO2 53 mmHg (41-51); VBG PH 7.32 pH Units (7.32-7.42); VBG PO2 56 mmHg (25-50)
[2018-05-20 17:53] LABS: INR 1.1; Prothrombin Time 12.3 Seconds (9.4-12.1)
[2018-05-20 17:56] LABS: Activated Partial Thrombo Time 24.8 Seconds (26.0-36.0)
[2018-05-20 18:06] LABS: Calcium 9.1 mg/dL (8.6-10.3); Potassium 3.6 mEq/L (3.5-5.1); Troponin I 0.05 ng/mL (< 0.04)
[2018-05-20] MEDS ORDERED: Insulin Human Regular 10 UNIT in 0.9 % Sodium Chloride 10 ML IV ONE (19:01)
[2018-05-20] MEDS ORDERED: Azithromycin 500 MG in D5% in Water 250 ML IVPB STA (19:25)
[2018-05-20] MEDS ORDERED: Potassium Chloride Elixir 20 MEQ/15 ML UDC PO ONE (19:36)
[2018-05-20] MEDS ORDERED: cefTRIAXone 1,000 MG in Water for inj. (sterile) 20 ML 10 ML IVP ONE (20:00)
[2018-05-20 20:54] LABS: Bilirubin,Urine Negative (Negative); Blood,Urine Small (Negative); Clarity,Urine Clear (Clear); Color,Urine Yellow (Yellow); Glucose,Urine (UA) >=1000 mg/dL (Normal); Ketones,Urine Negative (Negative); Leukocyte Esterase,Urine Negative (Negative); Nitrite,Urine Negative (Negative); Protein,Urine 30 mg/dL (Neg-Trace); Specific Gravity,Urine 1.027 (1.010-1.025); Urobilinogen,Urine Normal (Normal)
[2018-05-20 20:56] LABS: Bacteria,Urine None Seen per hpf (None-Few); Hyaline Casts,Urine None Seen per lpf (None-Few); Squamous Epithelial Cell,Urine Many per lpf (None-Few); WBC,Urine 0-3 per hpf (0-3)
--- NOTE | 2018-05-20 23:42 | Internal Med History&Physical ---
<Antonio New W - Last Filed: 05/21/18 02:37> Date of Encounter: 05/21/18 Time of Encounter: 23:42 Internal Medicine - H&P: HPI Chief complaint: chest pain, SOB, confusion History of present illness: Mr. Mcguire is a 57 year old male with a past medical history of diabetes, hypertension, depression presents to the ED with 1 week's worth of cough, shortness of breath, confusion and associated chest pain. Patient states by one week ago he was beginning to feel slightly filled. He noticed an increased cough. He was productive and had orange sputum. Patient went to his primary care physician on was given inhaler, antitussive, decongestant. Patient states that this did not help his symptoms. Patient stated he felt like he getting worse. He stated his counselor felt like he was confused recommended he go to the ED. Patient states he may have had some confusion such as not remembering his bunk mates name. Patient states he lives in a mental rehabilitation unit for depression with past suicidal ideation denies current SI or HI. Patient feels like his confusion is improved over the past 2 days. Patient also states that he was vomiting roughly 1 week ago. Last time he threw up was 2 days ago. No hematemesis, no diarrhea. Patient also states he has associated chest pain many worsened with inspiration and cough. Has had some vanegas bjective fevers. Patient denies any cardiac history. Patient denies dysuria, hematuria, abdominal pain, current nausea vomiting, vision change, headache, weakness, numbness, tingling, swelling. Past Med Surg Social Fam HX - Past Medical History Medical history: diabetes, GERD, hyperlipidemia, hypertension Additional medical history: neuropathy with loss of feeling to bilateral feet Psychiatric history: depression, PTSD - Past Surgical History Surgical History: herniorrhaphy Additional surgical history: Right Arm surgery - Social History Smoking Status: Current every day smoker Smokeless Tobacco Status: No Alcohol use: none Drug use: none - Family History Brother Living Status: Age at : 55 Cause of : [place] Hx Family Endocrine Disorder: Yes ([place]) Father Age: 77 Living Status: Cause of : [place] Hx Family Cardiac Disorders: Yes ([place]) Mother Age at : 77 Cause of : [place] Hx Family Cardiac Disorders: Yes ([place]) Internal Medicine - H&P: Meds Aspirin Enteric Coated [Aspirin EC] 325 mg PO DAILY 12/12/17 [History] Cyanocobalamin (Vitamin B-12) [Vitamin B12] 500 mcg PO DAILY 12/12/17 [History] Insulin ASPART [NovoLOG] 20 unit SQ TID 12/12/17 [History] Insulin Glargine,Hum.rec.anlog [Basaglar Kwikpen U-100] 60 unit SQ HS 12/12/17 [History] Lisinopril [Zestril] 20 mg PO DAILY 12/12/17 [History] Metoclopramide [Reglan] 10 mg PO QID PRN 12/12/17 [History] Omeprazole [PriLOSEC] 40 mg PO DAILY 12/12/17 [History] Pioglitazone HCl [Actos] 15 mg PO DAILY 12/12/17 [History] hydroCHLOROthiazide [Hydrochlorothiazide] 25 mg PO DAILY 12/12/17 [History] Dulaglutide [Trulicity] 0.75 mg SQ QWEEK 12/13/17 [History] Atorvastatin [Lipitor] 40 mg PO HS tablet 12/16/17 [Rx] FLUoxetine HCl [Prozac] 40 mg PO DAILY capsule 12/16/17 [Rx] Allergy/AdvReac Type Severity Reaction Status Date / Time codeine Allergy Rash Verified 12/12/17 19:56 All Systems PM: A 10-system review of systems was performed and is negative for pertinent findings except as documented above in the HPI. - Constitutional Constitutional: as per HPI - EENT Eyes: as per HPI - Cardiovascular Cardiovascular ROS IM: as per HPI - Respiratory Respiratory: as per HPI - Gastrointestinal Gastrointestinal: as per HPI - Genitourinary Genitourinary ROS male: as per HPI - Musculoskeletal Musculoskeletal ROS IM: as per HPI - Integumentary Integumentary IM: as per HPI - Neurological Neurological ROS: as per HPI - Psychiatric Psychiatric: as per HPI - Endocrine Endocrine IM: no polydipsia, no polyphagia, no polyuria - Constitutional Vitals: Temp Pulse Resp BP Pulse Ox 97.7 F 98 16 130/79 94 05/20/18 22:51 05/20/18 22:51 05/20/18 22:51 05/20/18 22:51 05/20/18 22:51 General appearance: Present: A&O X 3, pleasant, no acute distress Exam: He is pleasant and conversational he somewhat slow to respond but he answers questions appropriately - Head Head exam: Present: atraumatic, normocephalic - Eye Eye exam: Present: PERRL, conjuntiva pink, sclera anicteric Pupils: Present: PERRL - Neck Neck exam general surgery: Present: supple, trachea midline. Absent: lymphadenopathy - Respiratory Respiratory exam: Present: CTAB, wheezes. Absent: accessory muscle use, rales, respiratory distress, rhonchi, stridor - Cardiovascular Cardiovascular exam: Present: RRR, +S1, +S2. Absent: diastolic murmur, gallop, rubs, systolic murmur - GI/Abdominal GI/Abdominal exam: Present: normal bowel sounds, soft, no peritoneal signs. Absent: distended, tenderness - Extremities Exam Extremities exam: Present: warm, radial pulses palpable and symmetrical. Absent: calf tenderness, cyanotic, pedal edema - Neurological Exam Neurological exam: Present: alert, oriented X3, no focal deficits. Absent: pronater drift, facial droop, speech deficit - Psychiatric Psychiatric exam: Present: normal affect, normal mood. Absent: homicidal ideation, suicidal ideation - Skin Skin exam: Present: dry, intact Internal Med - H&P Results - Labs CBC & Chem 7: 05/20/18 17:15 05/21/18 00:47 Labs: Short CBC 05/20/18 Range/Units 17:15 WBC 11.1 (4.3-11.1) K/mcL Hgb 11.5 L (12.9-16.9) g/dL Hct 34.7 L (37.5-50.1) % Plt Count 171 (140-400) K/mcL Neutrophils # 9.3 H (1.6-8.9) K/mcL BMP 05/20/18 17:15 Sodium 118 L* Potassium 3.6 Chloride 80 L Carbon Dioxide 26 BUN 44 H Creatinine 1.74 H Glucose 720 H* Calcium 9.1 Cardiac Enzymes 05/20/18 05/20/18 Range/Units 17:15 23:00 Troponin I 0.05 H* 0.03 (< 0.04) ng/mL Urine 05/20/18 Range/Units 20:42 Urine Color Yellow (Yellow) Urine Clarity Clear (Clear) Urine pH 6.0 (5.0-8.0) pH Units Ur Specific [place] 1.027 H (1.010-1.025) Urine Protein 30 H (Neg-Trace) mg/dL Urine Glucose (UA) >=1000 H (Normal) mg/dL - ABG Interpretation ABG results: 05/20/18 17:46 VBG pH 7.32 VBG pCO2 53 H VBG pO2 56 H VBG HCO3 28 H - Impressions ITS Impressions Chest X-Ray 05/20/18 16:59 IMPRESSION: Infiltrates in the left mid and lower lung field, concerning for pneumonia. Follow-up radiographs in 4-6 weeks are recommended. D/ / 05/20/2018 17:37:01 Elmo Heredia MD / [facility] Interpreting Provider: Elmo Heredai MD - Assessment and plan (1) Hyperglycemia Current Visit: Yes Status: Acute Assessment and plan: History of uncontrolled diabetes Last A1c on 03/04/18 11.6 Insulin requiring Glucose 720 on initial presentation Urine not hyperosmolar, beta hydroxybutyric acid elevated 0.36 Insulin given in ED, repeat at 500 Initial anion gap of 12 Repeat bmp found glucose of 519 with sodium of 124 corrected at 131 which appears to be his baseline. anion gap has increased 16 Patient was placed on medium SSI and 15 units of basal insulin was ordered. calculated osmolality is 291 concern for increasing gap, patient does not have elevated osmolality. Plan: Insulin drip to be started consider moving to when beds are available iF glucose corrects stop drip See physician attestation for additional details (2) Pneumonia Current Visit: Yes Status: Acute Assessment and plan: CXR found infiltrates in the Left mid and lower lung cr Hyponatremia and patient having community living warrants concern for legionella Ceftriaxone and azithromycin given in ED Vitals stable Patient had confusion in past week which he states has since resolved Nausea and vomiting last episode 3 days ago sat 92% on initial presentation currently on 2L o2 Plan: Ceftriaxone and azithromycin Urinary strep and Legionella DuoNeb's Qualifiers: Pneumonia type: due to unspecified organism Laterality: left Lung location: unspecified part of lung Qualified Code(s): J18.9 - Pneumonia, unspecified organism (3) Hyponatremia Current Visit: Yes Status: Acute Assessment and plan: Na 118 corrected 128 glucose 720, urine sodium 29.3, urine osmolarity patient baseline in low 130s Etiology unclear at this time Thiazide vs hyperglycemia vs hyperglycemia repeat sodium 124 with corrected at 131 Plan D/C HCTZ slowly correct glucose repeat urine osmolarity and urine Na to help determine etiology repeat BMP if abnormal repeat fluid bolus or manage as indicated (4) Hyperkalemia Current Visit: Yes Status: Acute Assessment and plan: Initial potassium was 3.6 80 meq was given in the ED repeat K was 5.4 ECG found peaked T waves calcium gluconate was given Insulin given (5) JUDITH (acute kidney injury) Current Visit: Yes Status: Acute Assessment and plan: Cr 1.74 est GFR 40 Likely due to dehydration from vomiting gentle IV hydration and avoid nephrotoxins (6) Elevated troponin Current Visit: Yes Status: Acute Assessment and plan: Chest pain associated with cough initial troponin 0.05 repeat troponin wnl ECG found no ischemic changes COntinue to monitor (7) Diabetes Current Visit: No Status: Chronic Assessment and plan: SSI basal insulin Qualifiers: Diabetes mellitus type: type 2 Diabetes mellitus retirement insulin use: with retirement use Diabetes mellitus complication status: with hyperglycemia Qualified Code(s): E11.65 - Type 2 diabetes mellitus with hyperglycemia; Z79.4 - prison (current) use of insulin (8) DVT prophylaxis Current Visit: Yes Status: Acute Assessment and plan: heparin sq - Time Spent With Patient Total time spent is greater than 50% in coordination of care (as documented) at patient's floor/unit and/or counseling patient: <Andrew Lopezin Gabo - Last Filed: 05/21/18 03:32> Date of Encounter: 05/20/18 Internal Medicine - H&P: HPI History of present illness: Mr. Mcguire is a 57 year old male All Systems PM: A 10-system review of systems was performed and is negative for pertinent findings except as documented above in the HPI. - Constitutional Vitals: Temp Pulse Resp BP Pulse Ox 97.7 F 98 16 130/79 94 05/20/18 22:51 05/20/18 22:51 05/20/18 22:51 05/20/18 22:51 05/20/18 22:51 Internal Med - H&P Results - Labs CBC & Chem 7: 05/20/18 17:15 05/21/18 00:47 Labs: Short CBC 02/19/19 Range/Units 17:15 WBC 11.1 (4.3-11.1) K/mcL Hgb 11.5 L (12.9-16.9) g/dL Hct 34.7 L (37.5-50.1) % Plt Count 171 (140-400) K/mcL Neutrophils # 9.3 H (1.6-8.9) K/mcL BMP 05/20/18 05/21/18 17:15 00:47 Sodium 118 L* 124 L Potassium 3.6 5.4 H D Chloride 80 L 85 L Carbon Dioxide 26 23 BUN 44 H 40 H Creatinine 1.74 H 1.48 H Glucose 720 H* 519 H* Calcium 9.1 8.9 Cardiac Enzymes 05/20/18 05/20/18 Range/Units 17:15 23:00 Troponin I 0.05 H* 0.03 (< 0.04) ng/mL Urine 05/20/18 Range/Units 20:42 Urine Color Yellow (Yellow) Urine Clarity Clear (Clear) Urine pH 6.0 (5.0-8.0) pH Units Ur Specific [place] 1.027 H (1.010-1.025) Urine Protein 30 H (Neg-Trace) mg/dL Urine Glucose (UA) >=1000 H (Normal) mg/dL - ABG Interpretation ABG results: 05/20/18 17:46 VBG pH 7.32 VBG pCO2 53 H VBG pO2 56 H VBG HCO3 28 H - Impressions ITS Impressions Chest X-Ray 05/20/18 16:59 IMPRESSION: Infiltrates in the left mid and lower lung field, concerning for pneumonia. Follow-up radiographs in 4-6 weeks are recommended. D/ / 05/20/2018 17:37:01 Elmo Heredia MD / [facility] Interpreting Provider: Elmo Heredia MD - Time Spent With Patient Total time spent is greater than 50% in coordination of care (as documented) at patient's floor/unit and/or counseling patient: - Attending Attestation I saw and evaluated the patient. I reviewed the residents note, performed my own physical examination and agree with findings and plan as documented in the residents note. Patient seen and examined on 05/21/18. Patient's repeat labs indicate a widened anion gap as well as increased potassium as noted above. Patient's blood sugars also continue to remain elevated. Initially thought we could manage this with subcutaneous insulin, I decided to start the patient on insulin drip to help prevent further deterioration into DKA state. We will repeat a VBG, CBC and comprehensive metabolic panel this morning, titrate insulin as his glucose comes down. I also ordered additional IV fluids to be given at the same time. Repeat EKG did show T-wave changes that seemed more peaked than previous EKG. Gave calcium gluconate and anticipate that the potassium will improve with the addition of the insulin drip. Patient denies chest pain at this time as well as palpitations. Patient's sodium also has improved, calculated corrected sodium is around his baseline. We will continue to monitor patient's electrolytes. Continue cardiac monitoring, and continue to trend troponins. Patient had a stress echocardiogram performed in July of last year that showed no ischemic changes and no arrhythmias during exercise or recovery.
[2018-05-21] MEDS ORDERED: Naloxone 0.4 MG/ML INJ IVP PRN (00:47)
[2018-05-21] MEDS ORDERED: D5% in Water 1,000 ML IVC PRN (00:54)
[2018-05-21] MEDS ORDERED: Dextrose 4 GM Chewable Tablets PO PRN ×2 (00:54)
[2018-05-21] MEDS ORDERED: *HR* Dextrose 50 % in Water (Syg) 50 ML SYRINGE IVP PRN ×2 (00:54→02:45)
[2018-05-21] MEDS ORDERED: Dextrose Gel 15 GM/37.5 ML TUBE PO PRN ×2 (00:54)
[2018-05-21] MEDS ORDERED: Ipratropium/Albuterol Neb 3 ML IH PRN (00:56)
[2018-05-21 01:28] LABS: Calcium 8.9 mg/dL (8.6-10.3); Potassium 5.4 mEq/L (3.5-5.1)
[2018-05-21] MEDS ORDERED: Insulin LISPRO 300 UNITS/3 ML VIAL SQ ONE (01:58)
[2018-05-21] MEDS ORDERED: Insulin DETEMIR 100 UNIT/ML X5UNITS SQ SCH (02:00)
[2018-05-21] MEDS ORDERED: Insulin LISPRO 300 UNITS/3 ML VIAL SQ SCH ×5 (02:00→21:00)
[2018-05-21] MEDS ORDERED: Insulin Human Regular 100 UNIT in 0.9 % Sodium Chloride 100 ML IVC SCH (02:45)
[2018-05-21] MEDS ORDERED: 0.9 % Sodium Chloride 1,000 ML IVC ONE (02:53)
[2018-05-21] MEDS ORDERED: *HR* Heparin 5,000 UNIT/ML VIAL SQ SCH (06:00)
[2018-05-21 06:54] LABS: Basophils % 0.3 %; Hematocrit 32.1 % (37.5-50.1); Immature Granulocytes % 1.9 % (0-4); Lymphocytes # 0.7 K/mcL (0.6-4.6); Lymphocytes % 4.9 %; Mean Corpuscular HGB Conc 34.3 g/dL (31.6-35.5); Mean Corpuscular Hemoglobin 31.1 pg (28.0-33.3); Mean Corpuscular Volume 90.7 fL (83.0-100.0); Monocytes # 0.4 K/mcL (0.0-1.3); Monocytes % 2.5 %; Neutrophils # 13.5 K/mcL (1.6-8.9); Platelet Count 180 K/mcL (140-400); Red Blood Count 3.54 M/mcL (4.19-5.50); Red Cell Distribution Width 15.8 % (11.5-14.5); Segmented Neutrophils % 90.4 %
[2018-05-21 06:56] LABS: VBG HCO3 25 mEq/L (21-27); VBG PCO2 38 mmHg (41-51); VBG PH 7.42 pH Units (7.32-7.42); VBG PO2 110 mmHg (25-50)
[2018-05-21 07:24] LABS: Alanine Aminotransferase 20 Units/L (7-52); Albumin 3.2 g/dL (3.5-5.7); Albumin/Globulin Ratio 0.7 (1.1-2.2); Alkaline Phosphatase 112 Units/L (34-104); Aspartate Amino Transferase 30 Units/L (13-39); BUN/Creatinine Ratio 30 (6-26); Bilirubin,Total 0.5 mg/dL (0.3-1.0); Blood Urea Nitrogen 37 mg/dL (6-20); Calcium 9.4 mg/dL (8.6-10.3); Carbon Dioxide 24 mEq/L (23-29); Chloride 94 mEq/L (98-107); Globulin 4.4 g/dL (2.4-3.5); Glucose 313 mg/dL (70-105); Osmolality,Calculated 287 (280-300); Sodium 128 mEq/L (136-145); Total Protein 7.6 g/dL (6.4-8.9); eGFR For Non-African Americans > 60 (> 60)
[2018-05-21] MEDS: cefTRIAXone 1,000 MG in Water for inj. (sterile) 20 ML 10 ML IVP SCH (09:52)
[2018-05-21] MEDS ORDERED: Insulin DETEMIR 100 UNIT/ML X5UNITS SQ ONE (10:18)
[2018-05-21] MEDS: Insulin LISPRO 300 UNITS/3 ML VIAL SQ SCH ×3 (11:23→22:03)
--- NOTE | 2018-05-21 11:50 | Event Note ---
Date of Encounter: 05/21/18 Time of Encounter: 10:35 Blood sugars improved. We will transition patient to sliding scale insulin. Diabetic diet. Troponins bumped up to 0.16. The patient Lovenox for possible non-ST elevation [place]. Continues to trend troponins. Other causes for troponin elevation include acute kidney injury and respiratory distress. If troponins trending back down, will discontinue Lovenox. Otherwise will consult cardiology. Continue IV antibiotics. Acute kidney injury improving. Resume home medications.
[2018-05-21] MEDS: *HR* Enoxaparin 80 MG/0.8 ML SYRINGE SQ SCH (18:38)
[2018-05-21] MEDS: Azithromycin 500 MG in D5% in Water 250 ML IVPB SCH (18:38)
[2018-05-21] MEDS ORDERED: Menthol 9.1 MG LOZENGE PO PRN (21:45)
[2018-05-21] MEDS: traZODone 50 MG TABLET PO SCH (21:54)
[2018-05-21] MEDS: Insulin DETEMIR 100 UNIT/ML X5UNITS SQ SCH (21:55)
[2018-05-21] MEDS: Fluticasone Propionate Nasal 50 MCG/SPRAY BOTTLE NS SCH (21:55)
[2018-05-22] MEDS: *HR* Enoxaparin 80 MG/0.8 ML SYRINGE SQ SCH (05:57)
[2018-05-22 07:13] LABS: Basophils # 0.1 K/mcL (0.0-0.2); Basophils % 0.5 %; Eosinophils # 0.1 K/mcL (0.0-0.6); Eosinophils % 0.5 %; Hematocrit 33.3 % (37.5-50.1); Hemoglobin 11.1 g/dL (12.9-16.9); Immature Granulocytes % 2.3 % (0-4); Lymphocytes # 1.6 K/mcL (0.6-4.6); Lymphocytes % 12.3 %; Mean Corpuscular HGB Conc 33.3 g/dL (31.6-35.5); Mean Corpuscular Hemoglobin 30.8 pg (28.0-33.3); Mean Corpuscular Volume 92.5 fL (83.0-100.0); Monocytes # 0.5 K/mcL (0.0-1.3); Monocytes % 4.1 %; Neutrophils # 10.3 K/mcL (1.6-8.9); Platelet Count 221 K/mcL (140-400); Red Cell Distribution Width 16.2 % (11.5-14.5); Segmented Neutrophils % 80.3 %
[2018-05-22 07:28] LABS: BUN/Creatinine Ratio 33 (6-26); Blood Urea Nitrogen 36 mg/dL (6-20); Calcium 9.3 mg/dL (8.6-10.3); Carbon Dioxide 23 mEq/L (23-29); Chloride 99 mEq/L (98-107); Glucose 250 mg/dL (70-105); Osmolality,Calculated 293 (280-300); Potassium 3.4 mEq/L (3.5-5.1); Sodium 133 mEq/L (136-145); eGFR For Non-African Americans > 60 (> 60)
[2018-05-22] MEDS: Insulin LISPRO 300 UNITS/3 ML VIAL SQ SCH ×5 (07:48→20:53)
[2018-05-22] MEDS: cefTRIAXone 1,000 MG in Water for inj. (sterile) 20 ML 10 ML IVP SCH (07:52)
[2018-05-22] MEDS: Aspirin Enteric Coated 81 MG Tablet PO SCH (07:53)
[2018-05-22] MEDS: ARIPiprazole 5 MG TABLET PO SCH (07:53)
[2018-05-22] MEDS: Cyanocobalamin (B-12) 1,000 MCG TABLET PO SCH (07:53)
[2018-05-22] MEDS: FLUoxetine 20 MG CAPSULE PO SCH (07:54)
[2018-05-22] MEDS: Insulin DETEMIR 100 UNIT/ML X5UNITS SQ SCH ×2 (07:54→20:53)
[2018-05-22 07:56] LABS: Platelet Estimate Normal (Normal)
[2018-05-22] MEDS: Fluticasone Propionate Nasal 50 MCG/SPRAY BOTTLE NS SCH ×2 (08:02→20:53)
--- NOTE | 2018-05-22 09:47 | Cardiology Consult Note ---
<Ramu Marvin - Last Filed: 05/22/18 12:41> Date of Encounter: 05/22/18 Time of Encounter: 09:46 Assessment and Plan Discussion w patient/family: The assessment and plan as outlined above was discussed with the patient and/or family members who expressed understanding and agreement. All questions were answered. Thank you for involving us in the care of your patient. Please call with any questions. History of Present Illness Consult date: 05/22/18 Consult reason: Elevated troponins Chief complaint: Shortness of breath, chest pain, cough History of present illness: Mr. Mcguire is a 57 year old male who presented to [facility] ED on May 202018 for a one-week history of productive cough, shortness of breath, confusion, and pleuritic chest pain worsened with cough. Patient states that he was diagnosed with pneumonia one week ago and put on an unknown antibiotic. Patient states he was also given an inhaler and steroids by his PCP which she states did not relieve his symptoms. Patient past medical history includes diabetes, hyperlipidemia, hypertension, diabetic neuropathy, depression and PTSD Of note patient states that he currently resides in mental rehabilitation center due to PTSD as well as depression with suicidal ideation. Second medications include aspirin, lisinopril, hydrochlorothiazide and Lipitor. Significant labs included elevated troponin which was noted at 0.05 upon admission and peaked this morning at 0.64. Patient's troponin has since resolved and is less than 0.03 at last check. Patient chest x-ray shows a left mid/lower lobe pneumonia Previous stress testing on 08/06/2017 showed poor expiratory sinus capacity due to deconditioning. Stress test was negative for ischemia/arrhythmia ejection f raction noted to be 60%. Patient seen and examined at bedside. Upon initial evaluation patient is lying in hospital bed, he is awake, alert, engaged conversation answering questions appropriately without conversational dyspnea. He is in no acute distress, he is noncyanotic, nondiaphoretic, there a ppears to be no acute overt neurological deficits. Patient states that his chest pain is surrounded in his bilateral bronchial area and is "sore" 7 out of 10 on the pain scale. Patient currently denies any additional chest pain, shortness of breath, back pain, abdominal pain/nausea, lightheadedness/dizziness, paresthesias, difficulty with ambulation. Patient has no other concerns or complaints at this time. > Echocardiogram shows mild MR - otherwise unremarkable study. EF=55% > Patient appropriate for outpatient cardiology followup > Cardiology will sign off. Please reconsult as needed. Past Med Surg Social Fam HX - Past Medical History Medical history: diabetes, GERD, hyperlipidemia, hypertension Additional medical history: neuropathy with loss of feeling to bilateral feet Psychiatric history: depression, PTSD - Past Surgical History Surgical History: herniorrhaphy Additional surgical history: Right Arm surgery - Social History Smoking Status: Current every day smoker Smokeless Tobacco Status: No Alcohol use: none Drug use: none - Family History Brother Living Status: Age at : 55 Cause of : DM Hx Family Endocrine Disorder: Yes (DM) Father Age: 77 Living Status: Cause of : [place] Hx Family Cardiac Disorders: Yes ([place]) Mother Age at : 77 Cause of : [place] Hx Family Cardiac Disorders: Yes ([place]) Medications and Allergies Cyanocobalamin (Vitamin B-12) [Vitamin B12] 500 mcg PO DAILY 12/12/17 [History] Insulin Glargine,Hum.rec.anlog [Basaglar Kwikpen U-100] 60 unit SQ HS 12/12/17 [History] Metoclopramide [Reglan] 10 mg PO QID PRN 12/12/17 [History] Omeprazole [PriLOSEC] 40 mg PO DAILY 12/12/17 [History] hydroCHLOROthiazide [Hydrochlorothiazide] 25 mg PO DAILY 12/12/17 [History] Dulaglutide [Trulicity] 0.75 mg SQ MO 12/13/17 [History] Atorvastatin [Lipitor] 40 mg PO HS tablet 12/16/17 [Rx] ARIPiprazole [Abilify] 5 mg PO DAILY 05/21/18 [History] Albuterol Sulfate [Ventolin Hfa] 2 puff IH Q6H 05/21/18 [History] Aspirin [Adult Aspirin] 81 mg PO DAILY 05/21/18 [History] FLUoxetine HCl [Prozac] 60 mg PO QAM 05/21/18 [History] Fluticasone Propionate Nasal [Flonase] 1 spray NS BID 05/21/18 [History] Insulin LISPRO [Admelog] 21 unit SQ TID 05/21/18 [History] Metformin HCl [Metformin ER Osmotic] 500 mg PO DAILY 05/21/18 [History] Pioglitazone HCl 45 mg PO DAILY 05/21/18 [History] Prazosin [Minipress] 2 mg PO HS 05/21/18 [History] Trazodone HCl 100 mg PO HS 05/21/18 [History] Allergy/AdvReac Type Severity Reaction Status Date / Time codeine Allergy Rash Verified 12/12/17 19:56 All Systems Review: The remainder of the systems were reviewed and are negative Review of Systems: As per history of present illness. All systems reviewed and negative except as stated. Physical Examination Vital Signs, Last 4 Hours Temp Pulse Resp BP Pulse Ox 05/22/18 07:28 97.9 F 79 17 116/78 95 General: Conversant, No Apparent Distress HEENT: Atraumatic, Normocephaly, Mucus Membranes Moist Neck: No JVD Cardiac: Reg Rate and Rhythm, Normal S1 and S2, No Murmur Lungs: Normal Breath Sounds, No Wheeze, Rales, Rhonchi Neuro: Alert and responsive, No focal deficits noted Abdomen: Soft, Non-Tender Skin: No rashes noted on visualized skin Musculoskeletal: No Chest Wall Tenderness Extremities: No Clubbing, No Cyanosis, No Edema, Normal Pulses Results 05/22/18 06:32 05/22/18 06:32 Lab Results 05/21/18 05/21/18 05/22/18 12:59 18:36 06:32 WBC 12.8 H Hgb 11.1 L Hct 33.3 L Plt Count 221 Sodium Potassium Chloride Carbon Dioxide BUN Creatinine Glucose Calcium Troponin I 0.64 H* < 0.03 05/22/18 06:32 WBC Hgb Hct Plt Count Sodium 133 L Potassium 3.4 L Chloride 99 Carbon Dioxide 23 BUN 36 H Creatinine 1.09 Glucose 250 H Calcium 9.3 Troponin I - Imaging and Cardiology Chest Xray: report reviewed Stress Test: report reviewed Echo: pending - EKG Interpretation EKG results cardiology: personally reviewed, normal ECG, sinus rhythm, no diagnostic ischemia Consult Discharge Plan - Plan Referrals: Alyssia Lugo DO [Primary Care Provider] - <Juani Bales - Last Filed: 05/22/18 16:30> Date of Encounter: 05/22/18 - Attending Attestation Patient was seen and evaluated independently by me. Findings, assessment and plan were discussed at length with patient, questions answered. Agree with nurse practitioner's/resident's documentation. Addition as follows, 57yoM ho recent PNA, DM, HTN, HLD. P/w productive cough, dyspnea. Counseled for intermittent pleuritic chest pain with cough and trop peak 0.6. ECG SR w/o ischemic changes. TTE EF 55%,RV nl, mild MR, no PH. Leukocytosis, JUDITH, HHS. [id number] stress echo no evidence of ischemia, METs 4. VSS, AAO, RR, LLL fine crackles, no LE edema A: NSTEMI, type II likely LLL PNA P: if persistent pleuritic chest pain, CTA r/o PE no further inpatient cardiac workup cardiology clinic followup Juani Bales MD, PhD Assessment and Plan Discussion w patient/family: The assessment and plan as outlined above was discussed with the patient and/or family members who expressed understanding and agreement. All questions were answered. Thank you for involving us in the care of your patient. Please call with any questions. History of Present Illness History of present illness: Mr. Mcguire is a 57 year old male All Systems Review: The remainder of the systems were reviewed and are negative Physical Examination Vital Signs, Last 4 Hours Temp Pulse Resp BP Pulse Ox 05/22/18 15:31 97.7 F 82 17 115/85 95 05/22/18 15:30 97.9 F 87 16 122/86 92 Results 05/22/18 06:32 05/22/18 06:32 Lab Results 05/21/18 05/22/18 05/22/18 18:36 06:32 06:32 WBC 12.8 H Hgb 11.1 L Hct 33.3 L Plt Count 221 Sodium 133 L Potassium 3.4 L Chloride 99 Carbon Dioxide 23 BUN 36 H Creatinine 1.09 Glucose 250 H Calcium 9.3 Troponin I < 0.03
--- NOTE | 2018-05-22 12:54 | Internal Med Progress Note ---
Hospitalist Progress Note - Encounter Date of Encounter: 05/22/18 Time of Encounter: 10:00 - Subjective Interval History: Patient is awake and alert. Lying down in bed. Denies any new complaints. Does continue to have bilateral chest pain. Worsens with deep breaths. No nausea or vomiting. Shortness of breath is improving. - Exam Vitals: Temp Pulse Resp BP Pulse Ox 97.6 F 82 16 113/71 94 05/22/18 11:34 05/22/18 11:34 05/22/18 11:34 05/22/18 11:34 05/22/18 11:34 Exam: General: Patient is alert, mild distress, oriented x 3 ENT: Mucous membranes moist Respiratory: Prolonged expiratory phase, mild wheezing bilaterally Cardiovascular: Chest wall tenderness present. Regular rate and rhythm. s1 and s2 normal No clicks, rubs, gallops, or murmurs. No pedal edema Abdomen: Abdomen is soft, nontender. Bowel sounds are present Musculoskeletal: Spontaneously moving all extremities Skin: warm, dry, intact. Neuro: Alert oriented x 3 normal cranial nerves, no focal deficits - Assessment and Plan (1) Pneumonia Current Visit: Yes Status: Acute Assessment and Plan: Blood cultures are negative. Urine strep and legionella antigens are also negative. Leukocytosis improving. Continue Rocephin and azithromycin. Clinically patient is doing better today. Possible discharge tomorrow on oral antibiotics. Wean FiO2 as tolerated (2) Chest pain Current Visit: Yes Status: Acute Assessment and Plan: Pleuritic pain. Tenderness to palpation. Most likely chest wall pain. Troponins trended down. Cardiology input appreciated. No further cardiac work up planned at this time. We will stop Lovenox. (3) JUDITH (acute kidney injury) Current Visit: Yes Status: Resolved Assessment and Plan: Resolved (4) DVT prophylaxis Current Visit: Yes Status: Acute (5) Elevated troponin Current Visit: Yes Status: Acute Assessment and Plan: Troponins peaked at 0.64. Cardiology consult appreciated. Most likely from demand ischemia in the setting of respiratory distress and acute kidney injury. No further cardiac workup planned at this time. (6) Hyperglycemia Current Visit: Yes Status: Acute Assessment and Plan: Improved. Patient on subcutaneous insulin current (7) Diabetes Current Visit: Yes Status: Chronic Assessment and Plan: Blood glucose levels remain elevated. Will increase Levemir dosage to 35 units twice a day. Continue diabetic diet DVT Prophylaxis: Will place patient on subcutaneous heparin for DVT prophylaxis. - Time Spent with Patient Total time spent is greater than 50% in coordination of care (as documented) at patient's floor/unit and/or counseling patient: Internal Medicine: Result - Labs CBC & Chem 7: 05/22/18 06:32 05/22/18 06:32 Labs: Short CBC 05/22/18 Range/Units 06:32 WBC 12.8 H (4.3-11.1) K/mcL Hgb 11.1 L (12.9-16.9) g/dL Hct 33.3 L (37.5-50.1) % Plt Count 221 (140-400) K/mcL Neutrophils # 10.3 H (1.6-8.9) K/mcL BMP 05/22/18 06:32 Sodium 133 L Potassium 3.4 L Chloride 99 Carbon Dioxide 23 BUN 36 H Creatinine 1.09 Glucose 250 H Calcium 9.3 Cardiac Enzymes 05/21/18 05/21/18 Range/Units 12:59 18:36 Troponin I 0.64 H* < 0.03 (< 0.04) ng/mL - ABG Interpretation ABG results: PT/INR, D-dimer PT 12.3 Seconds (9.4-12.1) H 05/20/18 17:15 - Impressions Impressions Echocardiogram 05/21/18 16:12 Impressions: LVEF 55%. Normal right ventricular structure and function. Mild mitral regurgitation. No pulmonary hypertension. Left Ventricular Wall Motion: Rest Echo Findings All wall segments showed normal motion. Findings: Study Quality * Technically adequate exam. ECG Findings * Normal sinus rhythm. Left Ventricle * LVEF 55%. * Mild left ventricular diastolic dysfunction. * LV chamber size and wall thickness are normal. Right Ventricle * Normal right ventricular structure and function. Left Atrium * Normal left atrial size. Right Atrium * Normal right atrial size. Aortic Valve * No aortic regurgitation. * Aortic valve not well visualized. * No aortic stenosis. Mitral Valve * No mitral stenosis. * Mildly calcified mitral valve leaflets. * Mild mitral regurgitation. Tricuspid Valve * Tricuspid valve not well visualized. * Trace tricuspid regurgitation. * Estimated RA pressure is 3 mmHg. * Estimated RVSP is 16 mmHg. * No pulmonary hypertension. Pulmonic Valve * Pulmonic valve is not well visualized. * No pulmonic stenosis. * No pulmonic regurgitation. Pulmonary Artery * Pulmonary artery not well visualized. Aorta * Not well visualized. Pericardium * There is no pericardial effusion present. Interatrial Septum * No evidence of PFO by color Doppler. IVC * Normal IVC dimensions and inspiratory collapse. Consult Discharge Plan - Plan Referrals: Alyssia Lugo DO [Primary Care Provider] - (1) Pneumonia Qualifiers: Pneumonia type: due to unspecified organism Laterality: left Lung location: unspecified part of lung Qualified Code(s): J18.9 - Pneumonia, unspecified organism (2) Chest pain Qualifiers: Chest pain type: intercostal pain Qualified Code(s): R07.82 - Intercostal pain (7) Diabetes Qualifiers: Diabetes mellitus type: type 2 Diabetes mellitus half-way insulin use: with administrative assistant front desk use Diabetes mellitus complication status: with hyperglycemia Qualified Code(s): E11.65 - Type 2 diabetes mellitus with hyperglycemia; Z79.4 - residential (current) use of insulin
[2018-05-22] MEDS: *HR* Heparin 5,000 UNIT/ML VIAL SQ SCH (17:16)
[2018-05-22] MEDS: Azithromycin 500 MG in D5% in Water 250 ML IVPB SCH (17:33)
[2018-05-22] MEDS: traZODone 50 MG TABLET PO SCH (20:53)
--- NOTE | 2018-05-22 21:16 | Electrocardiograph Report ---
[place] [id number] Test Date: 2018-05-21 Pat Name: Anand Mcguire Department: 111 Room: 2NE27 Gender: M Rosin Barrel Filler: : 1960 Requested By: Aayush Duffy Order Number: [id number] Reading MD: Monica Aggarwal Measurements Intervals [place] Rate: 81 P: 16 DC: 213 QRS: 54 QRSD: 94 T: 28 QT: 382 QTc: 419 Interpretive Statements SINUS RHYTHM WITH FIRST DEGREE AV BLOCK Electronically Signed On 05-22-2018 21:15:13 EST by Monica Aggarwal
[2018-05-23] MEDS: *HR* Heparin 5,000 UNIT/ML VIAL SQ SCH (05:10)
[2018-05-23 07:10] LABS: Basophils # 0.1 K/mcL (0.0-0.2); Basophils % 0.7 %; Eosinophils # 0.1 K/mcL (0.0-0.6); Eosinophils % 1.2 %; Hematocrit 33.5 % (37.5-50.1); Hemoglobin 10.9 g/dL (12.9-16.9); Immature Granulocytes % 4.2 % (0-4); Lymphocytes # 1.8 K/mcL (0.6-4.6); Lymphocytes % 18.1 %; Mean Corpuscular HGB Conc 32.5 g/dL (31.6-35.5); Mean Corpuscular Hemoglobin 30.4 pg (28.0-33.3); Mean Corpuscular Volume 93.6 fL (83.0-100.0); Mean Platelet Volume 10.1 fL (9.4-12.4); Monocytes # 0.4 K/mcL (0.0-1.3); Monocytes % 4.3 %; Platelet Count 217 K/mcL (140-400); Red Blood Count 3.58 M/mcL (4.19-5.50); Red Cell Distribution Width 16.4 % (11.5-14.5); Segmented Neutrophils % 71.5 %
[2018-05-23 07:26] LABS: BUN/Creatinine Ratio 23 (6-26); Blood Urea Nitrogen 24 mg/dL (6-20); Calcium 9.4 mg/dL (8.6-10.3); Carbon Dioxide 25 mEq/L (23-29); Chloride 99 mEq/L (98-107); Glucose 144 mg/dL (70-105); Osmolality,Calculated 285 (280-300); Potassium 3.8 mEq/L (3.5-5.1); Sodium 134 mEq/L (136-145); eGFR For Non-African Americans > 60 (> 60)
[2018-05-23] MEDS: Aspirin Enteric Coated 81 MG Tablet PO SCH (08:11)
[2018-05-23] MEDS: FLUoxetine 20 MG CAPSULE PO SCH (08:11)
[2018-05-23] MEDS: ARIPiprazole 5 MG TABLET PO SCH (08:11)
[2018-05-23] MEDS: Cyanocobalamin (B-12) 1,000 MCG TABLET PO SCH (08:13)
[2018-05-23] MEDS: cefTRIAXone 1,000 MG in Water for inj. (sterile) 20 ML 10 ML IVP SCH (08:14)
[2018-05-23 08:47] LABS: Platelet Estimate Normal (Normal); Toxic Granulation Present (Not Present)
[2018-05-23] MEDS: Insulin LISPRO 300 UNITS/3 ML VIAL SQ SCH ×2 (09:52→12:22)
[2018-05-23] MEDS: Fluticasone Propionate Nasal 50 MCG/SPRAY BOTTLE NS SCH (10:19)
[2018-05-23] MEDS: Insulin DETEMIR 100 UNIT/ML X5UNITS SQ SCH (10:20)
[2018-05-23 11:56] VITALS: BP 146/91
[2018-05-23] MEDS ORDERED: predniSONE 20 MG TABLET PO SCH (12:30)
--- NOTE | 2018-05-23 13:01 | Discharge Summary ---
- NOTES TO OUTPATIENT PROVIDER Notes to Outpatient Provider: Patient with a history of diabetes, hypertension, depression was initially hospitalized here with severe hyperglycemic state and uncontrolled diabetes. His blood glucose was 720 on admission. He was placed on intravenous insulin drip and IV fluids. He was also diagnosed with pneumonia. I will after his blood sugars improved, he was transitioned to subcutaneous insulin. His blood sugars have improved but remain elevated and then follow with endocrinology to better control his blood sugars as outpatient. Patient's blood cultures have been negative. Clinically he is doing much better and is stable to be discharged home on oral antibiotics to complete treatment for his pneumonia. Patient also reported right-sided mastoid region pain CT scan of the site showed possible zoster mastoiditis. Discussed plan of care with ENT and they recommended continuing antibiotics and adding steroids and to arrange for outpatient follow-up in 2 weeks. Patient will be discharged later today. Orders not resulted at time of discharge: Pending orders 05/20/18 20:17 Culture,Blood [BC] Stat Date of Encounter: 05/23/18 Time of Encounter: 12:58 - Discharge Diagnosis (1) Pneumonia Priority: Primary Status: Acute Qualifiers: Pneumonia type: due to unspecified organism Laterality: left Lung location: unspecified part of lung Qualified Code(s): J18.9 - Pneumonia, unspecified organism (2) Chest pain Priority: Secondary Status: Acute Qualifiers: Chest pain type: intercostal pain Qualified Code(s): R07.82 - Intercostal pain (3) JUDITH (acute kidney injury) Priority: Secondary Status: Resolved (4) DVT prophylaxis Priority: Secondary Status: Acute (5) Elevated troponin Priority: Secondary Status: Acute (6) Hyperglycemia Priority: Secondary Status: Acute (7) Diabetes Priority: Secondary Status: Chronic Qualifiers: Diabetes mellitus type: type 2 Diabetes mellitus longterm insulin use: with watcher automat long goods use Diabetes mellitus complication status: with hyperglycemia Qualified Code(s): E11.65 - Type 2 diabetes mellitus with hyperglycemia; Z79.4 - watermelon inspector (current) use of insulin Hospital course: Mr. Mcguire is a 57 year old male Patient with a history of diabetes, hypertension, depression was initially hospitalized here with severe hyperglycemic state and uncontrolled diabetes. His blood glucose was 720 on admission. He was placed on intravenous insulin drip and IV fluids. He was also diagnosed with pneumonia. I will after his blood sugars improved, he was transitioned to subcutaneous insulin. His blood sugars have improved but remain elevated and then follow with endocrinology to better control his blood sugars as outpatient. Patient's blood cultures have been negative. Clinically he is doing much better and is stable to be discharged home on oral antibiotics to complete treatment for his pneumonia. Patient also reported right-sided mastoid region pain CT scan of the site showed possible zoster mastoiditis. Discussed plan of care with ENT and they recommended continuing antibiotics and adding steroids and to arrange for outpatient follow-up in 2 weeks. Patient will be discharged later today. He should not did have mild elevation in his troponin to a peak of 0.64. This was believed to be due to demand ischemia in the setting of acute kidney injury. His troponins have trended down quickly. Cardiology evaluated patient and patient also had a 2-D echocardiogram which showed EF of 55% with normal wall motion. Discharge discussed with: patient, nurse, business travel consultant - Time Spent with Patient Total time spent providing and/or coordinating discharge services: Greater than 30 minutes (45 min) - Discharge Medications Prescriptions: New Azithromycin [Zithromax] 500 mg PO Q24H #4 tablet predniSONE [PredniSONE] 40 mg PO DAILY #8 tablet Cefdinir [Omnicef] 300 mg PO BID #14 capsule Continue hydroCHLOROthiazide [Hydrochlorothiazide] 25 mg PO DAILY Cyanocobalamin (Vitamin B-12) [Vitamin B12] 500 mcg PO DAILY Omeprazole [PriLOSEC] 40 mg PO DAILY Metoclopramide [Reglan] 10 mg PO QID PRN PRN Reason: Nausea And Vomiting Insulin Glargine,Hum.rec.anlog [Ezio Willis U-100] 60 unit SQ HS Atorvastatin [Lipitor] 40 mg PO HS tablet Insulin LISPRO [Admelog] 21 unit SQ TID Prazosin [Minipress] 2 mg PO HS Trazodone HCl 100 mg PO HS Pioglitazone HCl 45 mg PO DAILY Albuterol Sulfate [Ventolin Hfa] 2 puff IH Q6H Aspirin [Adult Aspirin] 81 mg PO DAILY ARIPiprazole [Abilify] 5 mg PO DAILY FLUoxetine HCl [Prozac] 60 mg PO QAM Metformin HCl [Metformin ER Osmotic] 500 mg PO DAILY Fluticasone Propionate Nasal [Flonase] 1 spray NS BID Dulaglutide [Trulicity] 0.75 mg SQ MO #7 pen.injctr Home Medications: Cyanocobalamin (Vitamin B-12) [Vitamin B12] 500 mcg PO DAILY 12/12/17 [History] Insulin Glargine,Hum.rec.anlog [Basaglar Kwikpen U-100] 60 unit SQ HS 12/12/17 [History] Metoclopramide [Reglan] 10 mg PO QID PRN 12/12/17 [History] Omeprazole [PriLOSEC] 40 mg PO DAILY 12/12/17 [History] hydroCHLOROthiazide [Hydrochlorothiazide] 25 mg PO DAILY 12/12/17 [History] Atorvastatin [Lipitor] 40 mg PO HS tablet 12/16/17 [Rx] ARIPiprazole [Abilify] 5 mg PO DAILY 05/21/18 [History] Albuterol Sulfate [Ventolin Hfa] 2 puff IH Q6H 05/21/18 [History] Aspirin [Adult Aspirin] 81 mg PO DAILY 05/21/18 [History] FLUoxetine HCl [Prozac] 60 mg PO QAM 05/21/18 [History] Fluticasone Propionate Nasal [Flonase] 1 spray NS BID 05/21/18 [History] Insulin LISPRO [Admelog] 21 unit SQ TID 05/21/18 [History] Metformin HCl [Metformin ER Osmotic] 500 mg PO DAILY 05/21/18 [History] Pioglitazone HCl 45 mg PO DAILY 05/21/18 [History] Prazosin [Minipress] 2 mg PO HS 05/21/18 [History] Trazodone HCl 100 mg PO HS 05/21/18 [History] Azithromycin [Zithromax] 500 mg PO Q24H #4 tablet 05/23/18 [Rx] Cefdinir [Omnicef] 300 mg PO BID #14 capsule 05/23/18 [Rx] Dulaglutide [Trulicity] 0.75 mg SQ MO #7 pen.injctr 05/23/18 [Rx] predniSONE [PredniSONE] 40 mg PO DAILY #8 tablet 05/23/18 [Rx] Allergies/Adverse Reactions: Allergy/AdvReac Type Severity Reaction Status Date / Time codeine Allergy Rash Verified 12/12/17 19:56 Date of admission: 05/20/18 21:19 Primary care physician: Alyssia Lugo DO Consults: 05/21/18 00:52 Consult to Nurse Navigator [CONS] Routine Comment: 05/21/18 16:11 Consult to Cardiology [CONS] Routine Comment: Consulting Provider: Dallin Thakur Reason for Consult: Possible NSTEMI Time Notified: 16:11 Call Completed: Yes Discharging clinician: Albert Ortiz Anticipated date of discharge: 05/23/18 - Constitutional Vitals: Temp Pulse Resp BP Pulse Ox 98.7 F 90 16 146/91 97 05/23/18 09:15 05/23/18 11:46 05/23/18 11:46 05/23/18 11:46 05/23/18 11:46 General appearance: Present: cooperative, A&O X 3, pleasant, no acute distress Exam: . - ENT Additional comments: Tenderness to palpation over right mastoid region - Respiratory Respiratory exam: Present: CTAB. Absent: accessory muscle use, rales, rhonchi, wheezes - Cardiovascular Cardiovascular exam: Present: RRR, +S1, +S2. Absent: diastolic murmur, gallop, rubs, systolic murmur - GI/Abdominal GI/Abdominal exam: Present: normal bowel sounds, soft, no peritoneal signs. Absent: distended, tenderness - Extremities Exam Extremities exam: Present: warm, radial pulses palpable and symmetrical. Absent: calf tenderness, cyanotic, pedal edema - Patient Status Disposition: Home, Self-Care Condition: Good Functional capacity at discharge: independent ambulation Overall status at discharge: patient is progressing back to baseline - Discharge Instructions Instructions: Pneumonia (DC), Diabetes Mellitus Type 2 in Adults (DC) Follow Up With: Alyssia Lugo DO [Primary Care Provider] - (In 1-2 weeks) Nadine White COUNTER INSTALLER [Advanced Practice Nurse] - (in 1-2 weeks for right sided mastoiditis) Additional Instructions: Please return to the ER if he developed fevers chills, worsening right ear pain or decreased hearing. - Diet and Activity Activity: increase activity as tolerated Diet: diabetic diet, low fat, low cholesterol, low salt diet
[2018-05-23] MEDS ORDERED: Azithromycin 250 MG TABLET PO SCH (18:00)
[2018-05-23] MEDS ORDERED: Insulin DETEMIR 100 UNIT/ML X5UNITS SQ SCH (21:00)
--- NOTE | 2018-05-24 20:02 | Electrocardiograph Report ---
[place] [id number] Test Date: 2018-05-20 Pat Name: Anand Mcguire Department: EXAM4 Room: 2NE27 Gender: M Terminal Operator: : 1960 Requested By: Oral Hurley Order Number: [id number] Reading MD: Juani Bales Measurements Intervals [place] Rate: 94 P: 72 [place]: 198 QRS: 13 QRSD: 90 T: 47 QT: 380 QTc: 476 Interpretive Statements Sinus rhythm Borderline prolonged QT interval Electronically Signed On 05-24-2018 20:00:35 EST by Juani Bales
== END 2018-05-23 15:56 | disposition home or self-care (01) ==
LOC: EMEROOARM 16:57 → 2NENU 16:57 → SUATTDRO 21:19 → 2NENU 22:35
PROVIDERS: ADMIT Pediatrics; ATTEND Internal Medicine

== ENCOUNTER 2018-12-03 18:20 | Observation (INO) ==
[2018-12-03] MEDS ORDERED: Piperacillin/Tazobactam 3.375 GM in Water for inj. (sterile) 20 ML IVP ONE (18:42)
[2018-12-03] MEDS ORDERED: 0.9 % Sodium Chloride 1,000 ML IVC ONE (18:42)
--- NOTE | 2018-12-03 18:55 | Emergency Department Note ---
Disposition Clinical Impression: Cellulitis Qualifiers: Site of cellulitis: extremity Site of cellulitis of extremity: toe Laterality: right Qualified Code(s): L03.031 - Cellulitis of right toe Disposition: Admitted As Inpatient Condition: Good Time of Disposition: 21:35 General Adult HPI - General Chief complaint: ED Skin/Abscess/Foreign Body Stated complaint: Splinter right big toe 7mm Time Seen by Provider: 12/03/18 18:28 Source: patient Limitations: no limitations Nursing Notes Reviewed: Yes Vital Signs Reviewed: Yes - History of Present Illness HPI Narrative: Patient is a 57-year-old male history of hypertension, diabetes hypercholesterolemia presenting to emergency Department for a foreign body in the right toe. Patient states that that on Saturday he was walking up the steps when he slipped. He had pain in the right toe. Since then his toes began to become erythematous and begin to involve the foot and ankle. He states that toe is painful. He was evaluated at his primary care office earlier today and they sent for an x-ray. Patient states the x-ray demonstrated a 7 mm foreign body in his right great toe. Patient admits to fevers, chills, painful swollen foot that is warm to the touch. Patient denies chest pain. He has shortness of breath at baseline. No abdominal pain, nausea, vomiting, diarrhea, constipation no vision changes. Pain Scale: 9 - Related Data Home Medications Medication Instructions Recorded Confirmed Insulin Glargine,Hum.rec.anlog 60 unit SQ HS 12/12/17 12/03/18 [Basaglar Kwikpen U-100] Metoclopramide [Reglan] 10 mg PO QID PRN 12/12/17 12/03/18 Omeprazole [PriLOSEC] 40 mg PO DAILY 12/12/17 12/03/18 hydroCHLOROthiazide 25 mg PO DAILY 12/12/17 12/03/18 [Hydrochlorothiazide] ARIPiprazole [Abilify] 5 mg PO DAILY 05/21/18 12/03/18 FLUoxetine HCl [Prozac] 60 mg PO QAM 05/21/18 12/03/18 Insulin LISPRO [Admelog] 21 unit SQ TID 05/21/18 12/03/18 Metformin HCl [Metformin ER 500 mg PO DAILY 05/21/18 12/03/18 Osmotic] Prazosin [Minipress] 2 mg PO HS 05/21/18 12/03/18 Trazodone HCl 100 mg PO HS 05/21/18 12/03/18 Previous Rx's Medication Instructions Recorded Atorvastatin [Lipitor] 40 mg PO HS tablet 12/16/17 predniSONE [PredniSONE] 40 mg PO DAILY #8 tablet 05/23/18 Allergies Allergy/AdvReac Type Severity Reaction Status Date / Time codeine Allergy Rash Verified 12/12/17 19:56 All systems ED: reviewed and negative except as stated. Review of Systems: As Per HPI Constitutional: Reports: fever, chills Eyes: Denies: eye pain, eye discharge ENT ED: Denies: ear pain, throat pain Cardiovascular: Denies: chest pain, palpitations Respiratory: Denies: cough, dyspnea Gastrointestinal: Denies: abdominal pain, nausea Genitourinary: Denies: urgency, dysuria Musculoskeletal: Denies: back pain, neck pain Integumentary: Denies: rash, abrasion Neurological: Denies: headache, weakness Psychiatric: Denies: anxiety, depression Endocrine: Denies: fatigue, heat or cold intolerance Hematological/Lymphatic: Denies: easy bleeding, easy bruising Allergic/Immunologic: Denies: facial swelling, urticaria Past Medical History - Past Medical History Attestation: Yes The following information was validated with the patient. Source: patient Medical history: Reports: diabetes, GERD, hyperlipidemia, hypertension Surgical history: Reports: herniorrhaphy Psychiatric history: Reports: depression, PTSD - Social History Smoking Status: Current every day smoker Smokeless Tobacco Status: No Alcohol use: Reports: none Drug use: Reports: none Physical Exam - General Limitations: no limitations General appearance: alert, in no apparent distress - Head Head exam: atraumatic, normocephalic - Eye Eye exam: Present: normal appearance, PERRL, EOMI - ENT ENT exam: normal exam, normal oropharynx, mucous membranes moist - Neck Neck exam: Present: normal inspection, full ROM - Chest Chest inspection: Present: normal inspection, symmetric chest wall rise. Absent: tenderness - Respiratory Respiratory exam: Present: normal lung sounds bilaterally. Absent: respiratory distress, wheezes - Cardiovascular Cardiovascular exam: Present: normal rhythm, tachycardia - Abdominal Exam Abdominal exam: Present: soft, Non-Tender. Absent: tenderness, distention, guarding - Extremities Exam Extremities exam: Present: normal inspection, full ROM - Expanded Lower Extremity Exam Foot/toe exam: Present: other (Patient's right great toe is erythematous, swolle n, warm to the touch with a area of tissue breakdown on the inferior aspect. The erythema extends up the foot and ankle and up the leg. The patient is tender throughout exquisitely tender on the toe.) - Back Exam Back exam: Present: normal inspection, full ROM - Neurological Exam Neurological exam: Present: alert, oriented X3 - Psychiatric Psychiatric exam: Present: normal affect, normal mood - Skin Skin exam: Present: warm, dry Course Vital Signs Temperature 102.8 F H 12/03/18 18:30 Pulse Rate 104 12/03/18 18:30 Respiratory Rate 18 12/03/18 18:30 Blood Pressure 125/76 12/03/18 18:30 O2 Sat by Pulse Oximetry 96 12/03/18 18:30 Temperature 99.3 F 12/03/18 21:55 Pulse Rate 85 12/03/18 21:43 Respiratory Rate 18 12/03/18 21:43 Blood Pressure 108/65 12/03/18 21:43 O2 Sat by Pulse Oximetry 95 12/03/18 21:43 Oxygen Delivery Oxygen Delivery Room Air Procedures - Abscess I/D Consent obtained: verbal consent Site: foot Side (if applicable): right Sedation/analgesia: fentanyl Local Anesthetic: lidocaine 2% Amount of Anesthesia Used (mL): 3 Technique: other Irrigation: Yes Packing used?: none Medical Decision Making - MDM Narrative Medical decision making narrative: Patient presented to the emergency department with a known foreign body and an erythematous right great toe. There is concern for cellulitis vs osteomyelitis with concerns for sepsis. Laboratory evaluation was performed for sepsis, a CT with IV contrast was performed to evaluate for foreign body and cellulitis vs osteomyelitis. The patient was given IV fluids, pain control with IV fentanyl, and started on IV vancomycin and Zosyn. A digital block was performed and the great toe was evaluated in attempt to remove the foreign body. Abscess was drained however foreign body was not located. Disability Benefits Specialist consultation who will take the patient for surgical investigation of the right toe in the morning. Patient will be admitted to the hospitalist team for further evaluation and treatment. - Medical Records Medical records reviewed: Yes I reviewed the patient's medical records. - Lab Data Lab results reviewed: Yes I reviewed the patient's lab results. Result diagrams: 12/03/18 19:12/03/18 19:01 Lab Results 12/03/18 12/03/18 12/03/18 Range/Units 19: 19: 19:01 WBC 11.8 H (4.3-11.1) K/mcL RBC 4.03 L (4.19-5.50) M/mcL Hgb 12.6 L (12.9-16.9) g/dL Hct 37.0 L (37.5-50.1) % MCV 91.8 (83.0-100.0) fL MCH 31.3 (28.0-33.3) pg MCHC 34.1 (31.6-35.5) g/dL RDW 14.9 H (11.5-14.5) % Plt Count 174 (140-400) K/mcL MPV 9.7 (9.4-12.4) fL Immature Gran % 0.3 (0-4) % Seg Neutrophils % 81.8 % Lymphocytes % 9.2 % Monocytes % 8.0 % Eosinophils % 0.4 % Basophils % 0.3 % Neutrophils # 9.7 H (1.6-8.9) K/mcL Lymphocytes # 1.1 (0.6-4.6) K/mcL Monocytes # 0.9 (0.0-1.3) K/mcL Eosinophils # 0.1 (0.0-0.6) K/mcL Basophils # 0.0 (0.0-0.2) K/mcL ESR (0-10) mm/hr PT 13.9 H (9.4-12.1) Seconds INR 1.2 APTT 30.9 (26.0-36.0) Seconds Sodium 133 L (136-145) mEq/L Potassium 2.8 L (3.5-5.1) mEq/L Chloride 92 L (98-107) mEq/L Carbon Dioxide 30 H (23-29) mEq/L BUN 14 (6-20) mg/dL Creatinine 1.11 (0.70-1.30) mg/dL Est GFR ( Amer) > 60 (> 60) Est GFR (Non-Af Amer) > 60 (> 60) BUN/Creatinine Ratio 13 (6-26) Glucose 206 H (70-105) mg/dL Calculated Osmolality 282 (280-300) Lactic Acid (0.5-2.2) mmol/L Calcium 9.1 (8.6-10.3) mg/dL Troponin I < 0.03 (< 0.04) ng/mL C-Reactive Protein 245 H (Less than 10) mg/L Urine Color (Yellow) Urine Clarity (Clear) Urine pH (5.0-8.0) pH Units Ur Specific [place] (1.010-1.025) Urine Protein (Neg-Trace) mg/dL Urine Glucose (UA) (Normal) mg/dL Urine Ketones (Negative) mg/dL Urine Blood (Negative) Urine Nitrite (Negative) Urine Bilirubin (Negative) Urine Urobilinogen (Normal) mg/dL Ur Leukocyte Esterase (Negative) Urine Microscopic WBC (0-3) per hpf Ur Squamous Epith Cells (None-Few) per lpf Ur Culture Indicated? (NO) 12/03/18 12/03/18 12/03/18 Range/Units 19:01 19:01 19:47 WBC (4.3-11.1) K/mcL RBC (4.19-5.50) M/mcL Hgb (12.9-16.9) g/dL Hct (37.5-50.1) % MCV (83.0-100.0) fL MCH (28.0-33.3) pg MCHC (31.6-35.5) g/dL RDW (11.5-14.5) % Plt Count (140-400) K/mcL MPV (9.4-12.4) fL Immature Gran % (0-4) % Seg Neutrophils % % Lymphocytes % % Monocytes % % Eosinophils % % Basophils % % Neutrophils # (1.6-8.9) K/mcL Lymphocytes # (0.6-4.6) K/mcL Monocytes # (0.0-1.3) K/mcL Eosinophils # (0.0-0.6) K/mcL Basophils # (0.0-0.2) K/mcL ESR 103 H (0-10) mm/hr PT (9.4-12.1) Seconds INR APTT (26.0-36.0) Seconds Sodium (136-145) mEq/L Potassium (3.5-5.1) mEq/L Chloride (98-107) mEq/L Carbon Dioxide (23-29) mEq/L BUN (6-20) mg/dL Creatinine (0.70-1.30) mg/dL Est GFR ( Amer) (> 60) Est GFR (Non-Af Amer) (> 60) BUN/Creatinine Ratio (6-26) Glucose (70-105) mg/dL Calculated Osmolality (280-300) Lactic Acid 1.0 (0.5-2.2) mmol/L Calcium (8.6-10.3) mg/dL Troponin I (< 0.04) ng/mL C-Reactive Protein (Less than 10) mg/L Urine Color Yellow (Yellow) Urine Clarity Clear (Clear) Urine pH 6.0 (5.0-8.0) pH Units Ur Specific [place] > 1.030 H (1.010-1.025) Urine Protein 100 H (Neg-Trace) mg/dL Urine Glucose (UA) >=1000 H (Normal) mg/dL Urine Ketones Negative (Negative) mg/dL Urine Blood Trace H (Negative) Urine Nitrite Negative (Negative) Urine Bilirubin Negative (Negative) Urine Urobilinogen Normal (Normal) mg/dL Ur Leukocyte Esterase Negative (Negative) Urine Microscopic WBC 0-3 (0-3) per hpf Ur Squamous Epith Cells Few (None-Few) per lpf Ur Culture Indicated? NO (NO) - Radiology Data Radiology results reviewed: Yes I reviewed the patient's radiology results. Foot CT 12/03/18 19:15 IMPRESSION: 1. Linear 7 mm radiopaque foreign body within the great toe. Subcutaneous edema of the foot and ankle. Correlate clinically for cellulitis. No organized drainable fluid collection identified. 2. No definitive CT evidence for osteomyelitis. 3. Chronic appearing erosive changes of the 1st metatarsal head with sclerotic margins. Gout would be in the differential. 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 D/ / Rahul Samaniego MD / Rahul Samaniego MD Interpreting Provider: Rahul Samaniego MD
[2018-12-03] MEDS ORDERED: Isovue-370 500 ML BOTTLE IVP ONE ×2 (19:04→19:15)
[2018-12-03] MEDS ORDERED: *HR* FentaNYL (PF) 100 MCG/2 ML VIAL IVP ONE (19:07)
[2018-12-03] MEDS ORDERED: Piperacillin/Tazobactam 3.375 GM in 0.9 % Sodium Chloride Mini Bag 100 ML IVP ONE (19:10)
[2018-12-03 19:17] LABS: Basophils % 0.3 %; Eosinophils # 0.1 K/mcL (0.0-0.6); Eosinophils % 0.4 %; Hemoglobin 12.6 g/dL (12.9-16.9); Immature Granulocytes % 0.3 % (0-4); Lymphocytes # 1.1 K/mcL (0.6-4.6); Lymphocytes % 9.2 %; Mean Corpuscular HGB Conc 34.1 g/dL (31.6-35.5); Mean Corpuscular Hemoglobin 31.3 pg (28.0-33.3); Mean Corpuscular Volume 91.8 fL (83.0-100.0); Mean Platelet Volume 9.7 fL (9.4-12.4); Monocytes # 0.9 K/mcL (0.0-1.3); Neutrophils # 9.7 K/mcL (1.6-8.9); Platelet Count 174 K/mcL (140-400); Red Blood Count 4.03 M/mcL (4.19-5.50); Red Cell Distribution Width 14.9 % (11.5-14.5); Segmented Neutrophils % 81.8 %; White Blood Count 11.8 K/mcL (4.3-11.1)
[2018-12-03 19:30] LABS: INR 1.2; Prothrombin Time 13.9 Seconds (9.4-12.1)
[2018-12-03 19:32] LABS: Activated Partial Thrombo Time 30.9 Seconds (26.0-36.0)
[2018-12-03 19:35] LABS: BUN/Creatinine Ratio 13 (6-26); Blood Urea Nitrogen 14 mg/dL (6-20); Calcium 9.1 mg/dL (8.6-10.3); Carbon Dioxide 30 mEq/L (23-29); Chloride 92 mEq/L (98-107); Glucose 206 mg/dL (70-105); Osmolality,Calculated 282 (280-300); Potassium 2.8 mEq/L (3.5-5.1); Sodium 133 mEq/L (136-145); eGFR For African Americans > 60 (> 60); eGFR For Non-African Americans > 60 (> 60)
[2018-12-03 19:36] LABS: Troponin I < 0.03 ng/mL (< 0.04)
[2018-12-03 20:14] LABS: C-Reactive Protein 245 mg/L (Less than 10)
[2018-12-03 20:38] LABS: Bilirubin,Urine Negative (Negative); Blood,Urine Trace (Negative); Clarity,Urine Clear (Clear); Color,Urine Yellow (Yellow); Glucose,Urine (UA) >=1000 mg/dL (Normal); Ketones,Urine Negative (Negative); Leukocyte Esterase,Urine Negative (Negative); Nitrite,Urine Negative (Negative); Protein,Urine 100 mg/dL (Neg-Trace); Specific Gravity,Urine > 1.030 (1.010-1.025); Urobilinogen,Urine Normal (Normal)
[2018-12-03 20:52] LABS: Squamous Epithelial Cell,Urine Few per lpf (None-Few)
[2018-12-03 20:53] LABS: WBC,Urine 0-3 per hpf (0-3)
[2018-12-03] MEDS ORDERED: Tdap (Boostrix) Vaccine 0.5 ML SYRINGE IM ONE (21:24)
--- NOTE | 2018-12-03 21:38 | Emergency Department Note ---
Disposition Clinical Impression: Cellulitis Qualifiers: Site of cellulitis: extremity Site of cellulitis of extremity: toe Laterality: right Qualified Code(s): L03.031 - Cellulitis of right toe Disposition: Admitted As Inpatient Condition: Good Forms: ED Satisfaction Letter Time of Disposition: 21:37 General Adult HPI - General Chief complaint: ED Skin/Abscess/Foreign Body Stated complaint: Splinter right big toe 7mm Time Seen by Provider: 12/03/18 18:28 Source: patient Limitations: no limitations - History of Present Illness Pain Scale: 9 - Related Data Home Medications Medication Instructions Recorded Confirmed Cyanocobalamin (Vitamin B-12) 500 mcg PO DAILY 12/12/17 05/21/18 [Vitamin B12] Insulin Glargine,Hum.rec.anlog 60 unit SQ HS 12/12/17 05/21/18 [Basaglar Kwikpen U-100] Metoclopramide [Reglan] 10 mg PO QID PRN 12/12/17 05/21/18 Omeprazole [PriLOSEC] 40 mg PO DAILY 12/12/17 05/21/18 hydroCHLOROthiazide 25 mg PO DAILY 12/12/17 05/21/18 [Hydrochlorothiazide] ARIPiprazole [Abilify] 5 mg PO DAILY 05/21/18 05/21/18 Albuterol Sulfate [Ventolin Hfa] 2 puff IH Q6H 05/21/18 05/21/18 Aspirin [Adult Aspirin] 81 mg PO DAILY 05/21/18 05/21/18 FLUoxetine HCl [Prozac] 60 mg PO QAM 05/21/18 05/21/18 Fluticasone Propionate Nasal 1 spray NS BID 05/21/18 05/21/18 [Flonase] Insulin LISPRO [Admelog] 21 unit SQ TID 05/21/18 05/21/18 Metformin HCl [Metformin ER 500 mg PO DAILY 05/21/18 05/21/18 Osmotic] Pioglitazone HCl 45 mg PO DAILY 05/21/18 05/21/18 Prazosin [Minipress] 2 mg PO HS 05/21/18 05/21/18 Trazodone HCl 100 mg PO HS 05/21/18 05/21/18 Previous Rx's Medication Instructions Recorded Atorvastatin [Lipitor] 40 mg PO HS tablet 12/16/17 Azithromycin [Zithromax] 500 mg PO Q24H #4 tablet 05/23/18 Cefdinir [Omnicef] 300 mg PO BID #14 capsule 05/23/18 Dulaglutide [Trulicity] 0.75 mg SQ MO #7 pen.[email or web address] 05/23/18 predniSONE [PredniSONE] 40 mg PO DAILY #8 tablet 05/23/18 Allergies Allergy/AdvReac Type Severity Reaction Status Date / Time codeine Allergy Rash Verified 12/12/17 19:56 Constitutional: Reports: fever, chills Eyes: Denies: eye pain, eye discharge ENT ED: Denies: ear pain, throat pain Cardiovascular: Denies: chest pain, palpitations Respiratory: Denies: cough, dyspnea Gastrointestinal: Denies: abdominal pain, nausea Genitourinary: Denies: urgency, dysuria Musculoskeletal: Denies: back pain, neck pain Integumentary: Denies: rash, abrasion Neurological: Denies: headache, weakness Psychiatric: Denies: anxiety, depression Endocrine: Denies: fatigue, heat or cold intolerance Hematological/Lymphatic: Denies: easy bleeding, easy bruising Allergic/Immunologic: Denies: facial swelling, urticaria Past Medical History - Past Medical History Medical history: Reports: diabetes, GERD, hyperlipidemia, hypertension Surgical history: Reports: herniorrhaphy Psychiatric history: Reports: depression, PTSD - Social History Smoking Status: Current every day smoker Smokeless Tobacco Status: No Alcohol use: Reports: none Drug use: Reports: none Physical Exam - General Limitations: no limitations General appearance: alert, in no apparent distress Course - Consultations Consultation #1: discussed case with Dr. Lopez and he has accepted patient to his medicine service. Podiatry has also been consulted and recommend keeping nPO after midnight and they will take him to the OR tomorrow Time: 21:36 Vital Signs Temperature 102.8 F H 12/03/18 18:30 Pulse Rate 104 12/03/18 18:30 Respiratory Rate 18 12/03/18 18:30 Blood Pressure 125/76 12/03/18 18:30 O2 Sat by Pulse Oximetry 96 12/03/18 18:30 Temperature 102.8 F H 12/03/18 18:30 Pulse Rate 104 12/03/18 18:30 Respiratory Rate 18 12/03/18 18:30 Blood Pressure 125/76 12/03/18 18:30 O2 Sat by Pulse Oximetry 96 12/03/18 18:30 Oxygen Delivery Oxygen Delivery Room Air Medical Decision Making - Lab Data Result diagrams: 12/03/18 19:01 12/03/18 19:01 Lab Results 12/03/18 12/03/18 12/03/18 Range/Units 19:01 19: 19:01 WBC 11.8 H (4.3-11.1) K/mcL RBC 4.03 L (4.19-5.50) M/mcL Hgb 12.6 L (12.9-16.9) g/dL Hct 37.0 L (37.5-50.1) % MCV 91.8 (83.0-100.0) fL MCH 31.3 (28.0-33.3) pg MCHC 34.1 (31.6-35.5) g/dL RDW 14.9 H (11.5-14.5) % Plt Count 174 (140-400) K/mcL MPV 9.7 (9.4-12.4) fL Immature Gran % 0.3 (0-4) % Seg Neutrophils % 81.8 % Lymphocytes % 9.2 % Monocytes % 8.0 % Eosinophils % 0.4 % Basophils % 0.3 % Neutrophils # 9.7 H (1.6-8.9) K/mcL Lymphocytes # 1.1 (0.6-4.6) K/mcL Monocytes # 0.9 (0.0-1.3) K/mcL Eosinophils # 0.1 (0.0-0.6) K/mcL Basophils # 0.0 (0.0-0.2) K/mcL ESR (0-10) mm/hr PT 13.9 H (9.4-12.1) Seconds INR 1.2 APTT 30.9 (26.0-36.0) Seconds Sodium 133 L (136-145) mEq/L Potassium 2.8 L (3.5-5.1) mEq/L Chloride 92 L (98-107) mEq/L Carbon Dioxide 30 H (23-29) mEq/L BUN 14 (6-20) mg/dL Creatinine 1.11 (0.70-1.30) mg/dL Est GFR ( Amer) > 60 (> 60) Est GFR (Non-Af Amer) > 60 (> 60) BUN/Creatinine Ratio 13 (6-26) Glucose 206 H (70-105) mg/dL Calculated Osmolality 282 (280-300) Lactic Acid (0.5-2.2) mmol/L Calcium 9.1 (8.6-10.3) mg/dL Troponin I < 0.03 (< 0.04) ng/mL C-Reactive Protein 245 H (Less than 10) mg/L Urine Color (Yellow) Urine Clarity (Clear) Urine pH (5.0-8.0) pH Units Ur Specific [place] (1.010-1.025) Urine Protein (Neg-Trace) mg/dL Urine Glucose (UA) (Normal) mg/dL Urine Ketones (Negative) mg/dL Urine Blood (Negative) Urine Nitrite (Negative) Urine Bilirubin (Negative) Urine Urobilinogen (Normal) mg/dL Ur Leukocyte Esterase (Negative) Urine Microscopic WBC (0-3) per hpf Ur Squamous Epith Cells (None-Few) per lpf Ur Culture Indicated? (NO) 12/03/18 12/03/18 12/03/18 Range/Units 19:01 19:01 19:47 WBC (4.3-11.1) K/mcL RBC (4.19-5.50) M/mcL Hgb (12.9-16.9) g/dL Hct (37.5-50.1) % MCV (83.0-100.0) fL MCH (28.0-33.3) pg MCHC (31.6-35.5) g/dL RDW (11.5-14.5) % Plt Count (140-400) K/mcL MPV (9.4-12.4) fL Immature Gran % (0-4) % Seg Neutrophils % % Lymphocytes % % Monocytes % % Eosinophils % % Basophils % % Neutrophils # (1.6-8.9) K/mcL Lymphocytes # (0.6-4.6) K/mcL Monocytes # (0.0-1.3) K/mcL Eosinophils # (0.0-0.6) K/mcL Basophils # (0.0-0.2) K/mcL ESR 103 H (0-10) mm/hr PT (9.4-12.1) Seconds INR APTT (26.0-36.0) Seconds Sodium (136-145) mEq/L Potassium (3.5-5.1) mEq/L Chloride (98-107) mEq/L Carbon Dioxide (23-29) mEq/L BUN (6-20) mg/dL Creatinine (0.70-1.30) mg/dL Est GFR ( Amer) (> 60) Est GFR (Non-Af Amer) (> 60) BUN/Creatinine Ratio (6-26) Glucose (70-105) mg/dL Calculated Osmolality (280-300) Lactic Acid 1.0 (0.5-2.2) mmol/L Calcium (8.6-10.3) mg/dL Troponin I (< 0.04) ng/mL C-Reactive Protein (Less than 10) mg/L Urine Color Yellow (Yellow) Urine Clarity Clear (Clear) Urine pH 6.0 (5.0-8.0) pH Units Ur Specific [place] > 1.030 H (1.010-1.025) Urine Protein 100 H (Neg-Trace) mg/dL Urine Glucose (UA) >=1000 H (Normal) mg/dL Urine Ketones Negative (Negative) mg/dL Urine Blood Trace H (Negative) Urine Nitrite Negative (Negative) Urine Bilirubin Negative (Negative) Urine Urobilinogen Normal (Normal) mg/dL Ur Leukocyte Esterase Negative (Negative) Urine Microscopic WBC 0-3 (0-3) per hpf Ur Squamous Epith Cells Few (None-Few) per lpf Ur Culture Indicated? NO (NO) Attestation Statement - Attestation Attestation: I reviewed the residents documentation and agree with the residents assessment and plan of care. I have personally had face to face time with the patient. (Brief History, Brief Exam, and MDM) I personally supervised and was present for the maier/critical portions of the following procedures completed by the resident: EKG 57 year old male presnets to the ED with SIRS criteria with a foreign body identifitie donthe first great toe of radiopque nature. We have tried to retrieve it after digital block and was unable to find it but did otherwise remove necrotic tissues and loculations with drainage. Sil has been started on vanc/zosyn with sepsis protocol and we will admi to medicine with podiatry consult
--- NOTE | 2018-12-03 22:48 | Internal Med History&Physical ---
Date of Encounter: 12/03/18 Time of Encounter: 23:15 Internal Medicine - H&P: HPI Chief complaint: Cellulitis, foreign body in foot Admitted From: Emergency Dept Plans for Post Hospital Care: Home History of present illness: Mr. Mcguire is a 57 year old male Patient presented to the emergency department with a pain in his right great toe. He was out in his yard on Saturday, wearing shoes and he was carrying some stuff up wooden steps to his house when he slipped falling forward and the fall resulted in his foot striking the steps. He had pain in his right toe then gradually developed worsening erythema and pain from his toe to his ankle. He went to his primary care physician's office earlier on the day of his admission and had an x-ray performed, that showed a 7 mm foreign body in his right great toe. He was sent to the emergency department for further evaluation. Emergency room vital signs: Temperature 102.8, pulse 104, respiratory rate 18, blood pressure 125/76, O2 saturation 96% on room air CBC: White count elevated at 11.8, hemoglobin 12.6. BMP: Sodium 133, potassium 2.8. Glucose 206 ESR 103 CRP: 245 Urinalysis: Negative for infection but did have elevated specific gravity and urine glucose. EKG: Sinus rhythm, rate 97, QTC 458 ms. No ischemic changes Foot CT showed linear 7 mm radiopaque foreign body within the right great toe with subcutaneous edema. No evidence of osteomyelitis In the emergency department patient received a 1 L bolus of IV fluids, 1 g of Tylenol 50 mcg of fentanyl. Podiatry was called, will see the patient morning. Recommended Zosyn and vancomycin. He also received 40 mEq of potassium and a Tdap booster. He was admitted to the hospital for further management. Upon my evaluation, patient is resting comfortably in the hospital bed in no acute distress. He denies chest pain, abdominal pain, nausea, vomiting, diarrhea and constipation. He has felt feverish over the last few days but does not have an actual measured temperature. He has diabetes, but denies previous history of foot wounds and infections. He has never had an injury like this before. He is a DNR/DNI. Past Med Surg Social Fam HX - Past Medical History Medical history: diabetes, GERD, hyperlipidemia, hypertension Additional medical history: neuropathy with loss of feeling to bilateral feet Psychiatric history: depression, PTSD - Past Surgical History Surgical History: herniorrhaphy Additional surgical history: Right Arm surgery - Social History Smoking Status: Current every day smoker Smokeless Tobacco Status: No Alcohol use: none Drug use: none - Family History Brother Living Status: Hx Family Endocrine Disorder: Yes (DM) Father Living Status: Hx Family Cardiac Disorders: Yes ([place]) Mother Hx Family Cardiac Disorders: Yes ([place]) Internal Medicine - H&P: Meds Insulin Glargine,Hum.rec.anlog [Basaglar Kwikpen U-100] 60 unit SQ HS 12/12/17 [History] Metoclopramide [Reglan] 10 mg PO QID PRN 12/12/17 [History] Omeprazole [PriLOSEC] 40 mg PO DAILY 12/12/17 [History] hydroCHLOROthiazide [Hydrochlorothiazide] 25 mg PO DAILY 12/12/17 [History] Atorvastatin [Lipitor] 40 mg PO HS tablet 12/16/17 [Rx] ARIPiprazole [Abilify] 5 mg PO DAILY 05/21/18 [History] FLUoxetine HCl [Prozac] 60 mg PO QAM 05/21/18 [History] Insulin LISPRO [Admelog] 21 unit SQ TID 05/21/18 [History] Metformin HCl [Metformin ER Osmotic] 500 mg PO DAILY 05/21/18 [History] Prazosin [Minipress] 2 mg PO HS 05/21/18 [History] Trazodone HCl 100 mg PO HS 05/21/18 [History] predniSONE [PredniSONE] 40 mg PO DAILY #8 tablet 05/23/18 [Rx] Allergy/AdvReac Type Severity Reaction Status Date / Time codeine Allergy Rash Verified 12/12/17 19:56 All Systems PM: A 10-system review of systems was performed and is negative for pertinent findings except as documented above in the HPI. - Constitutional Vitals: Temp Pulse Resp BP Pulse Ox 99.3 F 83 16 105/67 94 12/03/18 22:15 12/03/18 22:15 12/03/18 22:15 12/03/18 22:15 12/03/18 22:15 General appearance: Present: cooperative, A&O X 3, pleasant, no acute distress, answers questions appropriately Exam: - - Head Head exam: Present: normal inspection - Eye Eye exam: Present: EOMI, normal appearance - Respiratory Respiratory exam: Present: CTAB. Absent: rales, respiratory distress, rhonchi, wheezes - Cardiovascular Cardiovascular exam: Present: RRR. Absent: diastolic murmur, systolic murmur - GI/Abdominal GI/Abdominal exam: Present: normal bowel sounds, soft. Absent: tenderness - Extremities Exam Extremities exam: Present: pedal edema, tenderness, warm, radial pulses palpable and symmetrical. Absent: calf tenderness Additional comments: Right great toe redness and swelling. Wound on the plantar surface at the base of the toe. Evidence of fresh blood likely from ER attempts of removing the foreign body. Tender from toe to ankle. - Neurological Exam Neurological exam: Present: no focal deficits, strengths equal and symetr throughout. Absent: motor sensory deficit, facial droop, speech deficit - Skin Skin exam: Present: dry, normal color, warm Internal Med - H&P Results - Labs CBC & Chem 7: 12/03/18 19:01 12/03/18 19:01 Labs: Short CBC 12/03/18 Range/Units 19:01 WBC 11.8 H (4.3-11.1) K/mcL Hgb 12.6 L (12.9-16.9) g/dL Hct 37.0 L (37.5-50.1) % Plt Count 174 (140-400) K/mcL Neutrophils # 9.7 H (1.6-8.9) K/mcL BMP 12/03/18 19:01 Sodium 133 L Potassium 2.8 L Chloride 92 L Carbon Dioxide 30 H BUN 14 Creatinine 1.11 Glucose 206 H Calcium 9.1 Cardiac Enzymes 12/03/18 Range/Units 19:01 Troponin I < 0.03 (< 0.04) ng/mL Urine 12/03/18 Range/Units 19:47 Urine Color Yellow (Yellow) Urine Clarity Clear (Clear) Urine pH 6.0 (5.0-8.0) pH Units Ur Specific [place] > 1.030 H (1.010-1.025) Urine Protein 100 H (Neg-Trace) mg/dL Urine Glucose (UA) >=1000 H (Normal) mg/dL - Impressions ITS Impressions Foot CT 12/03/18 19:15 IMPRESSION: 1. Linear 7 mm radiopaque foreign body within the great toe. Subcutaneous edema of the foot and ankle. Correlate clinically for cellulitis. No organized drainable fluid collection identified. 2. No definitive CT evidence for osteomyelitis. 3. Chronic appearing erosive changes of the 1st metatarsal head with sclerotic margins. Gout would be in the differential. 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 D/ / Rahul Samaniego MD / Rahul Samaniego MD Interpreting Provider: Rahul Samaniego MD - Assessment and Plan (1) Foreign body in foot Current Visit: Yes Status: Acute Assessment and plan: As seen on CT of the right foot patient has 7 mm linear radiopaque foreign body in the great toe. Podiatry has been consulted. Follow-up podiatry recommendations Nothing by mouth after midnight Continue IV antibiotics Pain management as needed Qualifiers: Encounter type: initial encounter Laterality: right Qualified Code(s): S90.851A - Superficial foreign body, right foot, initial encounter (2) Cellulitis Current Visit: Yes Status: Acute Assessment and plan: Secondary to foreign body in right great toe. Wound has been festering for the last 4 days. Tender and swelling noted on exam. Podiatry to see the patient in the morning. Follow-up podiatry recommendations Follow-up blood cultures Continue IV antibiotics Monitor for worsening signs of infection Qualifiers: Site of cellulitis: extremity Site of cellulitis of extremity: toe Laterality: right Qualified Code(s): L03.031 - Cellulitis of right toe (3) Hypokalemia Current Visit: Yes Status: Acute Assessment and plan: Patient received potassium in the emergency department. Repeat morning labs Check magnesium Replete as indicated (4) Diabetes Current Visit: No Status: Chronic Assessment and plan: Patient is an insulin dependent diabetic Monitor sugars every 6 hours Nothing by mouth Low dose insulin sliding scale as needed Hold home meds. 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
[2018-12-04] MEDS ORDERED: Ketorolac 30 MG/ML VIAL IVP PRN ×2 (03:07→17:59)
[2018-12-04] MEDS ORDERED: Naloxone 0.4 MG/ML INJ IVP PRN ×2 (03:07→17:59)
[2018-12-04] MEDS ORDERED: D5% in Water 1,000 ML IVC PRN ×2 (03:08→17:59)
[2018-12-04] MEDS ORDERED: Dextrose Gel 15 GM/37.5 ML TUBE PO PRN ×4 (03:08→17:59)
[2018-12-04] MEDS ORDERED: *HR* Dextrose 50 % in Water (Syg) 50 ML SYRINGE IVP PRN ×2 (03:08→17:59)
[2018-12-04 04:24] LABS: Hematocrit 33.9 % (37.5-50.1); Hemoglobin 11.1 g/dL (12.9-16.9); Mean Corpuscular HGB Conc 32.7 g/dL (31.6-35.5); Mean Corpuscular Hemoglobin 31.7 pg (28.0-33.3); Mean Corpuscular Volume 96.9 fL (83.0-100.0); Platelet Count 158 K/mcL (140-400); Red Cell Distribution Width 15.3 % (11.5-14.5); White Blood Count 10.1 K/mcL (4.3-11.1)
[2018-12-04 04:28] LABS: INR 1.3; Prothrombin Time 14.8 Seconds (9.4-12.1)
[2018-12-04 04:37] LABS: BUN/Creatinine Ratio 13 (6-26); Blood Urea Nitrogen 15 mg/dL (6-20); Calcium 8.1 mg/dL (8.6-10.3); Carbon Dioxide 29 mEq/L (23-29); Chloride 98 mEq/L (98-107); Glucose 257 mg/dL (70-105); Magnesium 1.4 mg/dL (1.6-2.6); Osmolality,Calculated 292 (280-300); Potassium 3.3 mEq/L (3.5-5.1); Sodium 136 mEq/L (136-145); eGFR For African Americans > 60 (> 60); eGFR For Non-African Americans > 60 (> 60)
[2018-12-04] MEDS: 0.9 % Sodium Chloride 1,000 ML IVC SCH ×2 (05:20→11:49)
[2018-12-04] MEDS: Insulin LISPRO 300 UNITS/3 ML VIAL SQ SCH ×4 (06:40→18:41)
[2018-12-04] MEDS: Piperacillin/Tazobactam 3.375 GM in 0.9 % Sodium Chloride Mini Bag 100 ML IVPB SCH ×2 (08:09→15:08)
--- NOTE | 2018-12-04 08:51 | Internal Med Progress Note ---
Hospitalist Progress Note - Encounter Date of Encounter: 12/04/18 Time of Encounter: 08:46 - Subjective Interval History: Mr. Mcguire is a 57 year old male who presented to the emergency department with a pain in his right great toe. Foot CT showed linear 7 mm radiopaque foreign body within the right great toe with subcutaneous edema. No evidence of osteomy elitis. Podiatry was consulted, recommended start patient on Zosyn and vancomycin, possible surgery today. Sincerely and examined in the room, reported the pain and swelling of the right big toe. Reported absence of drainage or pus. - Exam Vitals: Temp Pulse Resp BP Pulse Ox 98.7 F 81 16 111/70 95 12/04/18 07:03 12/04/18 07:03 12/04/18 07:03 12/04/18 07:03 12/04/18 07:03 Exam: PHYSICAL EXAMINATION: GENERAL APPEARANCE: The patient is alert, oriented and in no acute distress. HEENT: Head is normocephalic. The sinuses are nontender. Pupils are equal and reactive. The nares are patent. Oropharynx clear without lesions. NECK: Supple without lymphadenopathy. HEART: Regular rate and rhythm. LUNGS: No crackles or wheezes are heard. ABDOMEN: Soft, nontender, nondistended with good bowel sounds heard. Inguinal area is normal. EXTREMITIES: right big toe red and swelling. NEUROLOGICAL: Gross nonfocal. SKIN: Warm and dry without any rash. - Assessment and Plan (1) Foreign body in foot Current Visit: Yes Status: Acute Assessment and Plan: 12/[address] of the right foot patient has 7 mm linear radiopaque foreign body in the great toe. Podiatry has been consulted. Follow-up podiatry recommendations Nothing by mouth after midnight Continue IV antibiotics Pain management as needed. 12/04 Possible surgery per podiatry today. (2) Cellulitis Current Visit: Yes Status: Acute Assessment and Plan: 12/03 Secondary to foreign body in right great toe. Wound has been festering for the last 4 days. Tender and swelling noted on exam. Podiatry to see the patient in the morning. Follow-up podiatry recommendations Follow-up blood cultures Continue IV antibiotics Monitor for worsening signs of infection. 12/04 patient reported absence of fever overnight, WBC normal this morning, blood culture obtained, no growth so far. Continue IV antibiotics for now. Podiatry following. (3) Diabetes Current Visit: No Status: Chronic Assessment and Plan: Blood glucose well controlled, continue insulin sliding scale. (4) DVT prophylaxis Current Visit: No Status: Acute Assessment and Plan: SCDs (5) Hypokalemia Current Visit: Yes Status: Acute Assessment and Plan: Potassium 2.8 at the ED, received 40 KCl by mouth, this morning potassium is 3.3, will continue replace, continue monitor potassium in the morning. (6) Nicotine dependence Current Visit: No Status: Chronic Assessment and Plan: one pack-a-day smoker, declines nicotine patch - Time Spent with Patient Total time spent is greater than 50% in coordination of care (as documented) at patient's floor/unit and/or counseling patient: Greater than 35 minutes Plan of Care Discussed with: patient Internal Medicine: Result - Labs CBC & Chem 7: 12/04/18 03:24 12/04/18 03:24 Labs: Short CBC 12/03/18 12/04/18 Range/Units 19:01 03:24 WBC 11.8 H 10.1 (4.3-11.1) K/mcL Hgb 12.6 L 11.1 L D (12.9-16.9) g/dL Hct 37.0 L 33.9 L (37.5-50.1) % Plt Count 174 158 (140-400) K/mcL Neutrophils # 9.7 H (1.6-8.9) K/mcL BMP 12/03/18 12/04/18 19:01 03:24 Sodium 133 L 136 Potassium 2.8 L 3.3 L Chloride 92 L 98 Carbon Dioxide 30 H 29 BUN 14 15 Creatinine 1.11 1.18 Glucose 206 H 257 H Calcium 9.1 8.1 L Cardiac Enzymes 12/03/18 Range/Units 19:01 Troponin I < 0.03 (< 0.04) ng/mL Urine 12/03/18 Range/Units 19:47 Urine Color Yellow (Yellow) Urine Clarity Clear (Clear) Urine pH 6.0 (5.0-8.0) pH Units Ur Specific [place] > 1.030 H (1.010-1.025) Urine Protein 100 H (Neg-Trace) mg/dL Urine Glucose (UA) >=1000 H (Normal) mg/dL - ABG Interpretation ABG results: PT/INR, D-dimer PT 14.8 Seconds (9.4-12.1) H 12/04/18 03:24 - Impressions Impressions Foot CT 12/03/18 19:15 IMPRESSION: 1. Linear 7 mm radiopaque foreign body within the great toe. Subcutaneous edema of the foot and ankle. Correlate clinically for cellulitis. No organized drainable fluid collection identified. 2. No definitive CT evidence for osteomyelitis. 3. Chronic appearing erosive changes of the 1st metatarsal head with sclerotic margins. Gout would be in the differential. 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 D/ / Rahul Samaniego MD / Rahul Samaniego MD Interpreting Provider: Rahul Samaniego MD Consult Discharge Plan - Plan Referrals: NONE,PCP [Primary Care Provider] - (1) Foreign body in foot Qualifiers: Encounter type: initial encounter Laterality: right Qualified Code(s): S90.851A - Superficial foreign body, right foot, initial encounter (2) Cellulitis Qualifiers: Site of cellulitis: extremity Site of cellulitis of extremity: toe Laterality: right Qualified Code(s): L03.031 - Cellulitis of right toe (3) Diabetes Qualifiers: Diabetes mellitus type: type 2 Diabetes mellitus chcf insulin use: with chcf use Diabetes mellitus complication status: with hyperglycemia Qualified Code(s): E11.65 - Type 2 diabetes mellitus with hyperglycemia; Z79.4 - senior care (current) use of insulin (6) Nicotine dependence Qualifiers: Nicotine product type: cigarettes Substance use status: uncomplicated Qualified Code(s): F17.210 - Nicotine dependence, cigarettes, uncomplicated
--- NOTE | 2018-12-04 10:35 | Podiatry Consult Note ---
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 Linear 7 mm radiopaque foreign body within the great toe. Subcutaneous edema of the foot and ankle. Correlate clinically for cellulitis. No organized drainable fluid collection identified. 2. No definitive CT evidence for osteomyelitis. 3. Chronic appearing erosive changes of the 1st metatarsal head with sclerotic margins. Gout would be in the differential. 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 Plan: -OR today with Dr. Patino for I&D -Remain NPO -Nature of the procedure, risk versus benefits, potential complications, consequences of surgery, and condition discussed. All questions and concerns addressed. Consent signed and placed in chart. -Limited weight bearing, olivia bearing to heel with transfers only -Consider ID for IV antibiotic recommendations -Will continue to monitor Qualifiers: Encounter type: initial encounter Laterality: right Qualified Code(s): S90.851A - Superficial foreign body, right foot, initial encounter History of Present Illness HPI: Mr. Mcguire is a 57 year old male who was admitted to the hospital for foreign body right hallux and infection. Patient does have a past medical history of diabetes, hypertension, hyperlipidemia, GERD, COPD, and neuropathy. Patient reports on Saturday he was coming up his basement steps and fell. A few hours later he states his foot was hurting but there was no signs of injury. He reports on Saturday he woke up and the toe was red and it was hard to ambulate. He reports his symptoms continued to get worse and he was evaluated yesterday by his family physician and had an x-ray that showed evidence of a 7 mm foreign body right hallux. He was sent to the Emergency Room (ER) for further evaluation. He did have a temperature of 102.8 upon admission to ER and a CBC showed a WBC of 11.8, ESR 103, and CRP was 245. A CT was obtained and showed evidence of a 7 mm radiopaque foreign body within the right great toe with subcutaneous edema, no evidence of osteomyelitis. He was started on IV Vancomycin and Zosyn. Upon my assessment is alert and oriented x 3, no acute distress noted, well nourished, resting in bed. He denies chest pain or shortness of breath. He does report some calf tenderness. He does report fever, highest temp 102.8 and chills. He denies any nausea, vomiting, or diarrhea. Patient reports he smokes 5-6 cigarettes per day, denies alcohol or illicit drug use. Patient has been NPO since midnight and is aware he is remain NPO until after his surgery today. Past Med Surg Social Fam HX - Past Medical History Medical history: diabetes, GERD, hyperlipidemia, hypertension Additional medical history: neuropathy with loss of feeling to bilateral feet Psychiatric history: depression, PTSD - Past Surgical History Surgical History: herniorrhaphy Additional surgical history: Right Arm surgery - Social History Smoking Status: Current every day smoker Smokeless Tobacco Status: No Alcohol use: none Drug use: none - Family History Brother Living Status: Hx Family Endocrine Disorder: Yes (DM) Father Living Status: Hx Family Cardiac Disorders: Yes ([place]) Mother Hx Family Cardiac Disorders: Yes ([place]) Medications and Allergies Insulin Glargine,Hum.rec.anlog [Darrynaglkael Willis U-100] 60 unit SQ HS 12/12/17 [History] Metoclopramide [Reglan] 10 mg PO QID PRN 12/12/17 [History] Omeprazole [PriLOSEC] 40 mg PO DAILY 12/12/17 [History] hydroCHLOROthiazide [Hydrochlorothiazide] 25 mg PO DAILY 09/13/18 [History] Atorvastatin [Lipitor] 40 mg PO HS tablet 12/16/17 [Rx] ARIPiprazole [Abilify] 5 mg PO DAILY 05/21/18 [History] FLUoxetine HCl [Prozac] 60 mg PO QAM 05/21/18 [History] Insulin LISPRO [Admelog] 21 unit SQ TID 05/21/18 [History] Metformin HCl [Metformin ER Osmotic] 500 mg PO DAILY 05/21/18 [History] Prazosin [Minipress] 2 mg PO HS 05/21/18 [History] Trazodone HCl 100 mg PO HS 05/21/18 [History] predniSONE [PredniSONE] 40 mg PO DAILY #8 tablet 05/23/18 [Rx] Allergy/AdvReac Type Severity Reaction Status Date / Time codeine Allergy Rash Verified 12/12/17 19:56 All Systems Reviewed: The remainder of the systems were reviewed and are negative - Constitutional Additional comments: As per HPI - Cardiovascular Cardiovascular: no chest pain, no dyspnea - Respiratory Respiratory: no dyspnea Physical Exam - Constitutional Vitals: Temp Pulse Resp BP Pulse Ox 98.7 F 81 16 111/70 95 12/04/18 07:03 12/04/18 07:03 12/04/18 07:03 12/04/18 07:03 12/04/18 07:03 Exam: Constitutional: Alert and oriented x 3, no acute distress noted, well nourished male Vascular: 2/4 DP, 1/4 PT pulses right lower extremity, cap refill less than 3 seconds, no pain with calf squeeze Neurological: proprioception abnormal, normal plantar reflex, diminished prot ective sensation Dermatological: Right hallux with edema and warmth noted, erythema and cellulitis into forefoot, possible phlegmon inner space proximal aspect with serosanguineous drainage noted, hyperkerotitic tissue noted, and fluctuance Musculoskeletal: 5/5 muscle strength, normal muscle tone Results - Labs Result Diagrams: 12/04/18 03:24 12/04/18 03:24 Labs: Abnormal lab results WBC 11.8 K/mcL (4.3-11.1) H 12/03/18 19:01 RBC 3.50 M/mcL (4.19-5.50) L 12/04/18 03:24 Hgb 11.1 g/dL (12.9-16.9) L D 12/04/18 03:24 Hct 33.9 % (37.5-50.1) L 12/04/18 03:24 RDW 15.3 % (11.5-14.5) H 12/04/18 03:24 Neutrophils # 9.7 K/mcL (1.6-8.9) H 12/03/18 19:01 ESR 103 mm/hr (0-10) H 12/03/18 19:01 PT 14.8 Seconds (9.4-12.1) H 12/04/18 03:24 Sodium 133 mEq/L (136-145) L 12/03/18 19:01 Potassium 3.3 mEq/L (3.5-5.1) L 12/04/18 03:24 Chloride 92 mEq/L (98-107) L 12/03/18 19:01 Carbon Dioxide 30 mEq/L (23-29) H 12/03/18 19:01 Glucose 257 mg/dL (70-105) H 12/04/18 03:24 Calcium 8.1 mg/dL (8.6-10.3) L 12/04/18 03:24 Magnesium 1.4 mg/dL (1.6-2.6) L 12/04/18 03:24 C-Reactive Protein 245 mg/L (Less than 10) H 12/03/18 19:01 Ur Specific [place] > 1.030 (1.010-1.025) H 12/03/18 19:47 Urine Protein 100 mg/dL (Neg-Trace) H 12/03/18 19:47 Urine Glucose (UA) >=1000 mg/dL (Normal) H 12/03/18 19:47 Urine Blood Trace (Negative) H 12/03/18 19:47 H & H 12/03/18 12/04/18 Range/Units 19:01 03:24 Hgb 12.6 L 11.1 L D (12.9-16.9) g/dL Hct 37.0 L 33.9 L (37.5-50.1) % All other labs normal. Consult Discharge Plan - Plan Referrals: NONE,PCP [Primary Care Provider] -
--- NOTE | 2018-12-04 11:48 | Electrocardiograph Report ---
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
[2018-12-04 12:46] LABS: Estimated Average Glucose 223 mg/dl
[2018-12-04] MEDS ORDERED: Bupivacaine/EPI 1:200k 0.25%PF 30 ML VIAL ONE (15:25)
[2018-12-04] MEDS ORDERED: Vancomycin 1,000 MG VIAL ONE (15:25)
[2018-12-04] MEDS ORDERED: Albuterol 2.5 MG/3 ML NEBULIZER IH ONE (16:23)
[2018-12-04] MEDS ORDERED: Dexamethasone 4 MG/ML VIAL ONE ×2 (16:26→16:53)
[2018-12-04] MEDS ORDERED: *HR* FentaNYL (PF) 100 MCG/2 ML VIAL ONE (16:26)
[2018-12-04] MEDS ORDERED: Lidocaine -MPF 2% 2 ML VIAL ONE (16:26)
[2018-12-04] MEDS ORDERED: Albuterol 2.5 MG/3 ML NEBULIZER ONE (16:26)
[2018-12-04] MEDS ORDERED: Ondansetron 4 MG/2 ML VIAL ONE (16:26)
[2018-12-04] MEDS ORDERED: *HR* Midazolam HCl 2 MG/2 ML VIAL ONE (16:27)
[2018-12-04] MEDS ORDERED: *HR* Propofol 200 MG/20 ML VIAL IVP ONE (16:27)
--- NOTE | 2018-12-04 16:44 | Anesthesia Evaluation PreOp ---
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 (depression, PTSD, catrachito LE neuropathy) Other Medical History: Diabetes Type II Anesthesia History: No Prior Anesthetic Complications, Past Anesthesia (hernia, smoker) Alcohol Use: none Drug use: none Medications and Allergies Insulin Glargine,Hum.rec.anlog [Basaglar Kwikpen U-100] 60 unit SQ HS 12/12/17 [History] Omeprazole [PriLOSEC] 40 mg PO DAILY 12/12/17 [History] hydroCHLOROthiazide [Hydrochlorothiazide] 25 mg PO DAILY 12/12/17 [History] Atorvastatin [Lipitor] 40 mg PO HS tablet 12/16/17 [Rx] ARIPiprazole [Abilify] 5 mg PO DAILY 05/21/18 [History] FLUoxetine HCl [Prozac] 60 mg PO QAM 05/21/18 [History] Insulin LISPRO [Admelog] 10 - 30 unit SQ DAILY 05/21/18 [History] Metformin HCl [Metformin ER Osmotic] 500 mg PO DAILY 05/21/18 [History] Ertugliflozin Pidolate [Steglatro] 5 mg PO DAILY 12/04/18 [History] Lisinopril 2.5 mg PO DAILY 12/04/18 [History] Metoprolol Succinate [Toprol Xl] 50 mg PO DAILY 12/04/18 [History] Pioglitazone HCl 45 mg PO DAILY 12/04/18 [History] Prazosin HCl [Minipress] 2 mg PO BID 12/04/18 [History] levoFLOXacin [Levofloxacin] 750 mg PO DAILY 12/04/18 [History] Allergy/AdvReac Type Severity Reaction Status Date / Time codeine Allergy Rash Verified 12/04/18 11:35 - Meds/Allergy Pre-op Review Medications Reviewed: Yes Allergies Reviewed: Yes Beta Blockers on Current Med List: No Anesthesia Results - Labs 12/04/18 03:24 12/04/18 03:24 - Imaging EKG: report reviewed (Interpretive Statements Sinus rhythm Artifact in lead(s) I II III aVR aVL aVF Electronically Signed On 12-04-2018 11:46:41 EDT by Pranay Bhakta) Anesthesia Exam Vital Signs/O2 Sat, Most Current Temp Pulse Resp BP Pulse Ox 98.9 F 72 16 110/69 100 12/04/18 15:45 12/04/18 15:45 12/04/18 15:45 12/04/18 15:45 12/04/18 15:45 Weight: 83kg NPO (# of Hours): >8 - HEENT Pupil (Motor): Pupils equal, EOMI Mallampati: II Teeth: Edentulous Oral Opening: Greater than 3 - 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
[2018-12-04] MEDS ORDERED: Lidocaine 1% 20 ML MDV ONE (16:46)
[2018-12-04] MEDS ORDERED: Ropivacaine/PF 0.5% 30 ML VIAL ONE (16:54)
[2018-12-04] MEDS ORDERED: ROPIVACAINE/PF/NS 0.25% 1 EACH SYRINGE INTRAART ONE (16:54)
[2018-12-04] MEDS ORDERED: Calcium Gluconate 1,000 MG/10 ML VIAL ONE ×2 (16:57→17:00)
[2018-12-04] MEDS ORDERED: Propofol 500 MG/50 ML INFUS..BTL ONE (17:02)
--- NOTE | 2018-12-04 17:37 | Operative Note ---
Date of procedure: 12/04/18 Pre-op diagnosis: right foot foreign body, right foot abscess Post-op diagnosis: same Procedure: right foot incision and drainage right foot removal of foreign body (deep) Implants: none Complications: none Anesthesia: GETA Local Anesthetics: 1% Lidocaine HCL SubQ (cc) Surgeon: Marquis Patino Was there an under water assistant present: No Estimated blood loss (cc): 3 Specimen: right foot big toe culture, right foot foreign body Condition: stable Disposition: PACU Procedure in Detail: Indications: 58-year-old male with cellulitis to the ankle and foreign body in the right hallux being brought to the operating room for the above procedures after having the nature of the procedures, risks versus benefits potential complications consequences of surgery and his condition discussed at length. No guarantees were made as to the outcome and it was explained to the patient that he would likely have a wound to heal and the area would be left open to drain. All of his questions have been answered informed consent was signed patient was brought the preoperative holding area and operating room placed on operating room table in the supine position. The right foot was scrubbed prepped and draped in the usual sterile fashion and the following procedure began Incision and drainage right foot. Attention was directed to the plantar aspect of the patient's right hallux where a #15 blade was used to make an incision from the plantar medial aspect of the hallux extending laterally onto the toe and onto the dorsal aspect of the foot and purulent drainage was present on the plantar and medial aspect of the hallux extending laterally. Devitalized tissue was present which was excisionally debrided.. The site was irrigated with saline which contained vancomycin. All devitalized tissue appeared to have been debrided and the next procedure then began. Removal of right hallux foreign body. The incision was extended further medially and using fluoroscopy the small metal foreign body was identified and triangulated in the medical was able to be excised. The location of the foreign body was adjacent to the deep flexor tendon. The foreign body was sent to pathology. After flushing the site with saline which contained vancomycin. There was no further devitalized tissue present. The site was packed open using iodoform packing and PRP was applied to the wound. Vascular status was intact to this toe at the conclusion of the procedure noted by instant capillary refill time. Postoperative bandaging included Adaptic 4 x 4 gauze and Kerlix. Patient will return to the floor where he will continue IV antibiotics and await cultures.
[2018-12-04] MEDS ORDERED: Isovue-370 500 ML BOTTLE IVP ONE (17:59)
[2018-12-04] MEDS ORDERED: 0.9 % Sodium Chloride 1,000 ML IVC SCH (17:59)
[2018-12-05] MEDS: Insulin LISPRO 300 UNITS/3 ML VIAL SQ SCH ×5 (00:20→16:38)
[2018-12-05] MEDS: Piperacillin/Tazobactam 3.375 GM in 0.9 % Sodium Chloride Mini Bag 100 ML IVPB SCH ×3 (00:25→15:07)
[2018-12-05 04:27] LABS: Basophils % 0.2 %; Hematocrit 36.4 % (37.5-50.1); Hemoglobin 11.6 g/dL (12.9-16.9); Immature Granulocytes % 0.5 % (0-4); Lymphocytes # 0.7 K/mcL (0.6-4.6); Lymphocytes % 7.1 %; Mean Corpuscular HGB Conc 31.9 g/dL (31.6-35.5); Mean Corpuscular Hemoglobin 31.2 pg (28.0-33.3); Mean Corpuscular Volume 97.8 fL (83.0-100.0); Mean Platelet Volume 9.4 fL (9.4-12.4); Monocytes # 0.6 K/mcL (0.0-1.3); Monocytes % 5.6 %; Neutrophils # 8.5 K/mcL (1.6-8.9); Platelet Count 166 K/mcL (140-400); Red Blood Count 3.72 M/mcL (4.19-5.50); Red Cell Distribution Width 15.3 % (11.5-14.5); Segmented Neutrophils % 86.6 %; White Blood Count 9.8 K/mcL (4.3-11.1)
[2018-12-05 05:39] LABS: BUN/Creatinine Ratio 15 (6-26); Blood Urea Nitrogen 17 mg/dL (6-20); Calcium 8.6 mg/dL (8.6-10.3); Carbon Dioxide 24 mEq/L (23-29); Chloride 105 mEq/L (98-107); Glucose 261 mg/dL (70-105); Osmolality,Calculated 295 (280-300); Potassium 4.4 mEq/L (3.5-5.1); Sodium 137 mEq/L (136-145); eGFR For African Americans > 60 (> 60); eGFR For Non-African Americans > 60 (> 60)
[2018-12-05] MEDS ORDERED: *HR* Dextrose 50 % in Water (Syg) 50 ML SYRINGE IVP PRN (06:10)
[2018-12-05] MEDS ORDERED: Dextrose Gel 15 GM/37.5 ML TUBE PO PRN ×2 (06:10)
[2018-12-05] MEDS ORDERED: D5% in Water 1,000 ML IVC PRN (06:10)
--- NOTE | 2018-12-05 09:29 | Internal Med Progress Note ---
Hospitalist Progress Note - Encounter Date of Encounter: 12/05/18 Time of Encounter: 09:26 - Subjective Interval History: Mr. Mcguire is a 57 year old male who presented to the emergency department with a pain in his right great toe. Foot CT showed linear 7 mm radiopaque foreign body within the right great toe with subcutaneous edema. No evidence of osteomy elitis. Podiatry was consulted, recommended start patient on Zosyn and vancomycin, foreign body was removed by podiatry on 12/04, dressing was applied. He is seen and examined in the room. He reported improved pain on the right foot. Overnight, patient reported absence of fever, chills, or night sweats. - Exam Vitals: Temp Pulse Resp BP Pulse Ox 98.3 F 76 16 107/68 96 12/05/18 07:07 12/05/18 07:07 12/05/18 07:07 12/05/18 07:07 12/05/18 07:07 Exam: PHYSICAL EXAMINATION: GENERAL APPEARANCE: The patient is alert, oriented and in no acute distress. HEENT: Head is normocephalic. The sinuses are nontender. Pupils are equal and reactive. The nares are patent. Oropharynx clear without lesions. NECK: Supple without lymphadenopathy. HEART: Regular rate and rhythm. LUNGS: No crackles or wheezes are heard. ABDOMEN: Soft, nontender, nondistended with good bowel sounds heard. Inguinal area is normal. EXTREMITIES: Right foot covered with dressing, dry and intact. NEUROLOGICAL: Gross nonfocal. SKIN: Warm and dry without any rash. - Assessment and Plan (1) Foreign body in foot Current Visit: Yes Status: Acute Assessment and Plan: 12/[address] of the right foot patient has 7 mm linear radiopaque foreign body in the great toe. Podiatry has been consulted. Follow-up podiatry recommendations Nothing by mouth after midnight Continue IV antibiotics Pain management as needed. 12/04 Right foot foreign body removal per podiatry today. 12/05 Doing well, improved pain, continue IV antibiotics. (2) Cellulitis Current Visit: Yes Status: Acute Assessment and Plan: 12/03 Secondary to foreign body in right great toe. Wound has been festering for the last 4 days. Tender and swelling noted on exam. Podiatry to see the patient in the morning. Follow-up podiatry recommendations Follow-up blood cultures Continue IV antibiotics Monitor for worsening signs of infection. 12/04 patient reported absence of fever overnight, WBC normal this morning, blood culture obtained, no growth so far. Continue IV antibiotics. Foreign body removal by podiatry today. 12/05 Blood culture, wound culture, and anaerobics culture are all pending. Continue IV antibiotics with Zosyn and vancomycin. Plan to discharge patient cultures has no growth. (3) Diabetes Current Visit: No Status: Chronic Assessment and Plan: Blood glucose well controlled, continue insulin sliding scale. (4) DVT prophylaxis Current Visit: No Status: Acute Assessment and Plan: SCDs (5) Hypokalemia Current Visit: Yes Status: Resolved Assessment and Plan: Potassium 2.8 at the ED, received 40 KCl by mouth, this morning potassium is 3.3, will continue replace, continue monitor potassium in the morning. (6) Nicotine dependence Current Visit: No Status: Chronic Assessment and Plan: one pack-a-day smoker, declines nicotine patch - Time Spent with Patient Total time spent is greater than 50% in coordination of care (as documented) at patient's floor/unit and/or counseling patient: Greater than 35 minutes Plan of Care Discussed with: patient Internal Medicine: Result - Labs CBC & Chem 7: 12/05/18 04:08 12/05/18 04:08 Labs: Short CBC 12/05/18 Range/Units 04:08 WBC 9.8 (4.3-11.1) K/mcL Hgb 11.6 L (12.9-16.9) g/dL Hct 36.4 L (37.5-50.1) % Plt Count 166 (140-400) K/mcL Neutrophils # 8.5 (1.6-8.9) K/mcL BMP 12/05/18 04:08 Sodium 137 Potassium 4.4 Chloride 105 Carbon Dioxide 24 BUN 17 Creatinine 1.11 Glucose 261 H Calcium 8.6 - ABG Interpretation ABG results: PT/INR, D-dimer PT 14.8 Seconds (9.4-12.1) H 12/04/18 03:24 - Impressions Impressions Fluoroscopy 12/04/18 17:00 IMPRESSION: Intraprocedural fluoroscopic spot images as above. See separate procedure report for more information. D/ / 12/04/2018 19:56:37 Henry Paniagua MD / rocky Interpreting Provider: Henry Paniagua MD Foot X-Ray 12/04/18 17:00 IMPRESSION: Intraprocedural fluoroscopic spot images as above. See separate procedure report for more information. 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
--- NOTE | 2018-12-05 12:53 | Podiatry Progress Note ---
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 Patino on 12/04/2018 -Pulses palpable 2/4 DP, 1/4 PT -Cap refill less than 3 seconds -WBC 9.8, afebrile, upon admission to ER temp 102.8 -ESR 103, CRP 245 -Blood cultures preliminary -Surgical wound cultures preliminary -Path pending -CT of right foot CT/CT foot RT w con IMPRESSION: 1. Linear 7 mm radiopaque foreign body within the great toe. Subcutaneous edema of the foot and ankle. Correlate clinically for cellulitis. No organized drainable fluid collection identified. 2. No definitive CT evidence for osteomyelitis. 3. Chronic appearing erosive changes of the 1st metatarsal head with sclerotic margins. Gout would be in the differential. 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 Plan: -CAM walker boot ordered, ambulation RLE in CAM boot only -Recommend ID for IV antibiotic recommendations -May discharge home once antibiotic recommendations are confirmed -Follow up with Dr. Patino in Wound Care, please schedule appointment prior to discharge -Daily dressing changes as ordered Qualifiers: Encounter type: initial encounter Laterality: right Qualified Code(s): S90.851A - Superficial foreign body, right foot, initial encounter Subjective Interval history: Post op day #1 right foot incision and drainage and right foot removal of foreign body (deep) by Dr. Patino on 12/04/2018 Patient is alert and oriented, no acute distress noted, resting in bed, watching tv. He denies any chest pain, shortness, of breath, or calf pain. Patient denies any fever, chills, nausea, vomiting, or diarrhea. Dressing to right lower extremity dry and intact. Objective - Vital Signs Vital Signs: Vital Signs Temp Pulse Resp BP Pulse Ox 12/05/18 11:18 98.5 F 60 16 120/71 93 12/05/18 07:07 98.3 F 76 16 107/68 96 12/05/18 02:56 97.6 F 60 16 107/63 92 12/04/18 22:44 98.1 F 74 16 112/56 91 12/04/18 18:49 97.5 F L 77 17 112/72 90 12/04/18 15:45 98.9 F 72 16 110/69 100 Intake and Output 12/04/18 12/05/18 12/05/18 23:59 07:59 15:59 Intake Total 1100 / 2500 350 / 1060 710 / 1060 Output Total 3 / 3 420 / 420 Balance 1097 / 2497 -70 / 640 710 / 640 Intake: IV Fluids 1100 / 2500 350 / 700 350 / 700 0.9 % Sodium Chloride 1,000 ML 1000 / 2000 @ 125 mls/hr IVC .Q8H [facility] Rx#: [id number] Zosyn 3.375 GM In 0.9 % Sodium 100 / 200 100 / 200 100 / 200 Chloride (Mini-Bag +) 100 ML @ 25 mls/hr IVPB Q8HR [facility] Rx#: [id number] Vancocin 1,000 MG In 0.9 % 250 / 500 250 / 500 Sodium Chloride 250 ML @ 167 mls/hr IVPB Q12H [facility] Rx#: [id number] Oral 360 / 360 Output: Urine 420 / 420 Estimated Blood Loss / 3 Other: Meal Dinner Breakfast Percent of Meal Consumed 80% 100% Weight 83.2 kg Blood Glucose* 183 206 Patient Weight 12/05/18 23:59 Weight 83.2 kg - Exam Exam: Constitutional: Alert and oriented x 3, no acute distress noted, well nourished male Vascular: 2/4 DP, 1/4 PT pulses right lower extremity, cap refill less than 3 seconds, no pain with calf squeeze Neurological: proprioception abnormal, normal plantar reflex, diminished prot ective sensation Dermatological: Surgical wound to inner space of proximal hallux packed and minimal serosangineuos drainage noted, erythema noted to hallux and into forefoot, edema noted 1/4 Musculoskeletal: 08/03 muscle strength, normal muscle tone - Lab Result Diagrams: 12/05/18 04:08 12/05/18 04:08 Labs: Abnormal lab results WBC 11.8 K/mcL (4.3-11.1) H 12/03/18 19:01 RBC 3.72 M/mcL (4.19-5.50) L 12/05/18 04:08 Hgb 11.6 g/dL (12.9-16.9) L 12/05/18 04:08 Hct 36.4 % (37.5-50.1) L 12/05/18 04:08 RDW 15.3 % (11.5-14.5) H 12/05/18 04:08 Neutrophils # 9.7 K/mcL (1.6-8.9) H 12/03/18 19:01 ESR 103 mm/hr (0-10) H 12/03/18 19:01 PT 14.8 Seconds (9.4-12.1) H 12/04/18 03:24 Sodium 133 mEq/L (136-145) L 12/03/18 19:01 Potassium 3.3 mEq/L (3.5-5.1) L 12/04/18 03:24 Chloride 92 mEq/L (98-107) L 12/03/18 19:01 Carbon Dioxide 30 mEq/L (23-29) H 12/03/18 19:01 Glucose 261 mg/dL (70-105) H 12/05/18 04:08 POC Glucose 359 mg/dL (70-99) H 12/05/18 00:18 Hemoglobin A1c 9.4 % (-5.6) H 12/04/18 11:39 Calcium 8.1 mg/dL (8.6-10.3) L 12/04/18 03:24 Magnesium 1.4 mg/dL (1.6-2.6) L 12/04/18 03:24 C-Reactive Protein 245 mg/L (Less than 10) H 12/03/18 19:01 Ur Specific [place] > 1.030 (1.010-1.025) H 12/03/18 19:47 Urine Protein 100 mg/dL (Neg-Trace) H 12/03/18 19:47 Urine Glucose (UA) >=1000 mg/dL (Normal) H 12/03/18 19:47 Urine Blood Trace (Negative) H 12/03/18 19:47 Vancomycin Trough 12 mcg/mL (5-10) H 12/05/18 08:44 Microbiology, Last 48 Hours 12/04/18 18:00 Wound Culture - Preliminary Right Foot 12/04/18 18:00 Anaerobic Culture - Preliminary Right Foot Culture is incubating. 12/03/18 19:01 Blood Culture - Preliminary Peripheral Venipuncture Culture is incubating and being continuously monitored for growth. Final report to follow. 12/03/18 18:58 Blood Culture - Preliminary Peripheral Venipuncture Culture is incubating and being continuously monitored for growth. Final report to follow. Consult Discharge Plan - Plan Referrals: Aurelia Rothman MD [Resident] - 12/09/18 3:30 pm NONE,PCP [Primary Care Provider] -
[2018-12-05] MEDS ORDERED: Aminoglycoside Consult 1 EACH MC ONE (16:31)
[2018-12-05] MEDS ORDERED: Insulin LISPRO 300 UNITS/3 ML VIAL SQ SCH (21:00)
[2018-12-06] MEDS: Piperacillin/Tazobactam 3.375 GM in 0.9 % Sodium Chloride Mini Bag 100 ML IVPB SCH ×2 (00:16→07:24)
[2018-12-06] MEDS: Insulin LISPRO 300 UNITS/3 ML VIAL SQ SCH ×2 (07:23→12:13)
--- NOTE | 2018-12-06 09:02 | Discharge Summary ---
- NOTES TO OUTPATIENT PROVIDER Notes to Outpatient Provider: f/u with PCP within a week. f/u with podiatry within 1 week. Orders not resulted at time of discharge: Pending orders 12/03/18 19:01 Culture,Blood [BC] Stat 12/04/18 18:00 Culture,Anaerobic [RM] Routine Culture,Wound,with Gram Stain [RM] Routine Surgical Pathology [PTH] Routine Date of Encounter: 12/06/18 Time of Encounter: 08:58 - Discharge Diagnosis (1) Foreign body in foot Priority: Primary Status: Acute Qualifiers: Encounter type: initial encounter Laterality: right Qualified Code(s): S90.851A - Superficial foreign body, right foot, initial encounter (2) Cellulitis Priority: Primary Status: Acute Qualifiers: Site of cellulitis: extremity Site of cellulitis of extremity: toe Laterality: right Qualified Code(s): L03.031 - Cellulitis of right toe (3) Diabetes Priority: Secondary Status: Chronic Qualifiers: Diabetes mellitus type: type 2 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 Mcguire is a 57 year old male who presented to the emergency department with a pain in his right great toe. Foot CT showed linear 7 mm radiopaque foreign body within the right great toe with subcutaneous edema. No evidence of osteomyelitis. Podiatry was consulted, recommended start patient on Zosyn and vancomycin, foreign body was removed by podiatry on 12/04, dressing was applied. Wound culture grow Staphylococcus aureus, sensitive to doxycycline, IV antibiotics switched to oral doxycycline. Instructions about daily dressing change was provided to patient. Patient will follow-up with podiatry next week, he will also follow-up with PCP as scheduled. Discharge discussed with: patient Time spent discussing smoking cessation with patient: more than 10 minutes - Time Spent with Patient Total time spent providing and/or coordinating discharge services: Time spent: Greater than 30 minutes - Discharge Medications Prescriptions: New Doxycycline 100 mg PO BID #14 capsule Continued hydroCHLOROthiazide [Hydrochlorothiazide] 25 mg PO DAILY Omeprazole [PriLOSEC] 40 mg PO DAILY Insulin Glargine,Hum.rec.anlog [Basaglar Kwikpen U-100] 60 unit SQ HS Atorvastatin [Lipitor] 40 mg PO HS tablet Insulin LISPRO [Admelog] 10 - 30 unit SQ DAILY ARIPiprazole [Abilify] 5 mg PO DAILY FLUoxetine HCl [Prozac] 60 mg PO QAM Metformin HCl [Metformin ER Osmotic] 500 mg PO DAILY Pioglitazone HCl 45 mg PO DAILY Lisinopril 2.5 mg PO DAILY Ertugliflozin Pidolate [Steglatro] 5 mg PO DAILY Prazosin HCl [Minipress] 2 mg PO BID Metoprolol Succinate [Toprol Xl] 50 mg PO DAILY Discontinued levoFLOXacin [Levofloxacin] 750 mg PO DAILY Home Medications: Insulin Glargine,Hum.rec.anlog [Basaglar Kwikpen U-100] 60 unit SQ HS 12/12/17 [History] Omeprazole [PriLOSEC] 40 mg PO DAILY 12/12/17 [History] hydroCHLOROthiazide [Hydrochlorothiazide] 25 mg PO DAILY 12/12/17 [History] Atorvastatin [Lipitor] 40 mg PO HS tablet 12/16/17 [Rx] ARIPiprazole [Abilify] 5 mg PO DAILY 05/21/18 [History] FLUoxetine HCl [Prozac] 60 mg PO QAM 05/21/18 [History] Insulin LISPRO [Admelog] 10 - 30 unit SQ DAILY 05/21/18 [History] Metformin HCl [Metformin ER Osmotic] 500 mg PO DAILY 05/21/18 [History] Ertugliflozin Pidolate [Steglatro] 5 mg PO DAILY 12/04/18 [History] Lisinopril 2.5 mg PO DAILY 12/04/18 [History] Metoprolol Succinate [Toprol Xl] 50 mg PO DAILY 12/04/18 [History] Pioglitazone HCl 45 mg PO DAILY 12/04/18 [History] Prazosin HCl [Minipress] 2 mg PO BID 12/04/18 [History] Doxycycline 100 mg PO BID #14 capsule 09/07/19 [Rx] Allergies/Adverse Reactions: Allergy/AdvReac Type Severity Reaction Status Date / Time codeine Allergy Rash Verified 12/04/18 11:35 Date of admission: 12/03/18 21:40 Primary care physician: PCP NONE Consults: 12/03/18 21:37 Consult to Podiatry [CONS] Stat Consulting Provider: [facility] Reason for Consult: foreign body in toe, foot cellulitis Time Notified: 21:37 Call Completed: Yes Anticipated date of discharge: 12/06/18 - Constitutional Vitals: Temp Pulse Resp BP Pulse Ox 98.9 F 80 16 147/80 93 12/06/18 07:05 12/06/18 07:05 12/06/18 07:05 12/06/18 07:05 12/06/18 07:39 General appearance: Present: cooperative, A&O X 3, pleasant, no acute distress, answers questions appropriately Exam: PHYSICAL EXAMINATION: GENERAL APPEARANCE: The patient is alert, oriented and in no acute distress. HEENT: Head is normocephalic. The sinuses are nontender. Pupils are equal and reactive. The nares are patent. Oropharynx clear without lesions. NECK: Supple without lymphadenopathy. HEART: Regular rate and rhythm. LUNGS: No crackles or wheezes are heard. ABDOMEN: Soft, nontender, nondistended with good bowel sounds heard. Inguinal area is normal. EXTREMITIES: Right foot covered with dressing, dry and intact. NEUROLOGICAL: Gross nonfocal. SKIN: Warm and dry without any rash. - Patient Status Disposition: Home, Self-Care Condition: Good Functional capacity at discharge: independent ambulation Overall status at discharge: patient is progressing back to baseline - Discharge Instructions Follow Up With: Aurelia Rothamn MD [Resident] - 12/09/18 3:30 pm - Diet and Activity Activity: increase activity as tolerated Diet: diabetic diet
[2018-12-06] MEDS: Doxycycline 100 MG CAPSULE PO SCH ×2 (10:53→16:24)
[2018-12-06 11:29] VITALS: BP 151/87
== END 2018-12-06 16:32 | disposition home or self-care (01) ==
LOC: EMEROOARM 18:20 → 3BNU 18:20
PROVIDERS: ADMIT Family Medicine; ATTEND Family Medicine

== ENCOUNTER 2019-01-16 15:12 | Inpatient (IN) ==
[2019-01-16] MEDS ORDERED: Piperacillin/Tazobactam 3.375 GM in 0.9 % Sodium Chloride Mini Bag 100 ML IVPB ONE (15:45)
[2019-01-16 16:23] LABS: Basophils # 0.1 K/mcL (0.0-0.2); Basophils % 0.7 %; Eosinophils # 0.2 K/mcL (0.0-0.6); Eosinophils % 2.5 %; Hemoglobin 13.3 g/dL (12.9-16.9); Immature Granulocytes % 0.7 % (0-4); Lymphocytes # 1.4 K/mcL (0.6-4.6); Mean Corpuscular HGB Conc 33.3 g/dL (31.6-35.5); Mean Corpuscular Hemoglobin 31.1 pg (28.0-33.3); Mean Corpuscular Volume 93.5 fL (83.0-100.0); Mean Platelet Volume 9.3 fL (9.4-12.4); Monocytes # 0.6 K/mcL (0.0-1.3); Monocytes % 7.6 %; Neutrophils # 5.2 K/mcL (1.6-8.9); Platelet Count 227 K/mcL (140-400); Red Blood Count 4.28 M/mcL (4.19-5.50); Red Cell Distribution Width 16.1 % (11.5-14.5); Segmented Neutrophils % 69.5 %; White Blood Count 7.5 K/mcL (4.3-11.1)
[2019-01-16] MEDS ORDERED: Naloxone 0.4 MG/ML INJ IVP PRN (16:27)
[2019-01-16 16:40] LABS: BUN/Creatinine Ratio 19 (6-26); Blood Urea Nitrogen 20 mg/dL (8-23); Carbon Dioxide 29 mEq/L (23-29); Chloride 99 mEq/L (98-107); Glucose 95 mg/dL (70-105); Potassium 3.4 mEq/L (3.5-5.1); Sodium 135 mEq/L (136-145); eGFR For African Americans > 60 (> 60); eGFR For Non-African Americans > 60 (> 60)
[2019-01-16 16:41] LABS: Alanine Aminotransferase 15 Units/L (7-52); Albumin 4.4 g/dL (3.5-5.7); Albumin/Globulin Ratio 1.2 (1.1-2.2); Alkaline Phosphatase 89 Units/L (34-104); Aspartate Amino Transferase 20 Units/L (13-39); Bilirubin,Total 0.3 mg/dL (0.3-1.0); Calcium 9.9 mg/dL (8.6-10.3); Globulin 3.6 g/dL (2.4-3.5); Osmolality,Calculated 282 (280-300)
[2019-01-16 17:07] LABS: C-Reactive Protein 27 mg/L (Less than 10)
[2019-01-16] MEDS ORDERED: D5% in Water 1,000 ML IVC PRN (17:43)
[2019-01-16] MEDS ORDERED: *HR* Dextrose 50 % in Water (Syg) 50 ML SYRINGE IVP PRN (17:43)
[2019-01-16] MEDS ORDERED: Dextrose Gel 15 GM/37.5 ML TUBE PO PRN ×2 (17:43)
[2019-01-16] MEDS: Insulin LISPRO 300 UNITS/3 ML VIAL SQ SCH (20:27)
[2019-01-16] MEDS: Insulin DETEMIR 100 UNIT/ML X5UNITS SQ SCH (21:17)
[2019-01-16] MEDS: Piperacillin/Tazobactam 3.375 GM in 0.9 % Sodium Chloride Mini Bag 100 ML IVPB SCH (23:06)
[2019-01-17 02:09] LABS: Basophils % 0.5 %; Eosinophils # 0.2 K/mcL (0.0-0.6); Eosinophils % 3.4 %; Hematocrit 37.5 % (37.5-50.1); Hemoglobin 12.5 g/dL (12.9-16.9); Immature Granulocytes % 0.3 % (0-4); Lymphocytes # 1.8 K/mcL (0.6-4.6); Lymphocytes % 29.2 %; Mean Corpuscular HGB Conc 33.3 g/dL (31.6-35.5); Mean Corpuscular Hemoglobin 31.3 pg (28.0-33.3); Mean Platelet Volume 9.5 fL (9.4-12.4); Monocytes # 0.6 K/mcL (0.0-1.3); Monocytes % 10.3 %; Neutrophils # 3.5 K/mcL (1.6-8.9); Platelet Count 209 K/mcL (140-400); Red Blood Count 3.99 M/mcL (4.19-5.50); Red Cell Distribution Width 16.1 % (11.5-14.5); Segmented Neutrophils % 56.3 %; White Blood Count 6.1 K/mcL (4.3-11.1)
[2019-01-17 02:22] LABS: Prothrombin Time 11.9 Seconds (9.4-12.1)
[2019-01-17 02:26] LABS: BUN/Creatinine Ratio 16 (6-26); Blood Urea Nitrogen 20 mg/dL (8-23); Calcium 9.3 mg/dL (8.6-10.3); Carbon Dioxide 29 mEq/L (23-29); Chloride 100 mEq/L (98-107); Glucose 164 mg/dL (70-105); Magnesium 1.4 mg/dL (1.6-2.6); Osmolality,Calculated 292 (280-300); Potassium 3.2 mEq/L (3.5-5.1); Sodium 138 mEq/L (136-145); eGFR For African Americans > 60 (> 60); eGFR For Non-African Americans > 60 (> 60)
[2019-01-17] MEDS: Insulin LISPRO 300 UNITS/3 ML VIAL SQ SCH ×7 (08:31→21:28)
[2019-01-17] MEDS: Metoprolol XL (24 HR) Succ 50 MG TAB.ER.24H PO SCH (08:51)
[2019-01-17] MEDS: Piperacillin/Tazobactam 3.375 GM in 0.9 % Sodium Chloride Mini Bag 100 ML IVPB SCH ×2 (08:51→17:05)
[2019-01-17] MEDS: FLUoxetine 20 MG CAPSULE PO SCH (08:55)
[2019-01-17] MEDS ORDERED: Isovue-370 500 ML BOTTLE IVP ONE (15:56)
[2019-01-17] MEDS: Insulin DETEMIR 100 UNIT/ML X5UNITS SQ SCH (21:28)
[2019-01-18] MEDS: Piperacillin/Tazobactam 3.375 GM in 0.9 % Sodium Chloride Mini Bag 100 ML IVPB SCH ×3 (05:12→20:57)
[2019-01-18 05:49] LABS: Vancomycin,Trough 15 mcg/mL (5-10)
[2019-01-18] MEDS ORDERED: 0.9 % Sodium Chloride 500 ML IVC SCH (06:30)
[2019-01-18 07:14] LABS: BUN/Creatinine Ratio 19 (6-26); Blood Urea Nitrogen 25 mg/dL (8-23); Calcium 9.1 mg/dL (8.6-10.3); Carbon Dioxide 27 mEq/L (23-29); Chloride 103 mEq/L (98-107); Glucose 151 mg/dL (70-105); Osmolality,Calculated 293 (280-300); Potassium 3.8 mEq/L (3.5-5.1); Sodium 138 mEq/L (136-145); eGFR For African Americans > 60 (> 60); eGFR For Non-African Americans 55 (> 60)
[2019-01-18] MEDS: Insulin LISPRO 300 UNITS/3 ML VIAL SQ SCH ×7 (07:36→20:58)
[2019-01-18] MEDS: FLUoxetine 20 MG CAPSULE PO SCH (09:56)
[2019-01-18] MEDS: Metoprolol XL (24 HR) Succ 50 MG TAB.ER.24H PO SCH (09:56)
[2019-01-18] MEDS: Insulin DETEMIR 100 UNIT/ML X5UNITS SQ SCH (20:58)
[2019-01-19 05:06] LABS: BUN/Creatinine Ratio 20 (6-26); Blood Urea Nitrogen 25 mg/dL (8-23); Calcium 9.1 mg/dL (8.6-10.3); Carbon Dioxide 25 mEq/L (23-29); Chloride 106 mEq/L (98-107); Glucose 146 mg/dL (70-105); Osmolality,Calculated 295 (280-300); Potassium 3.7 mEq/L (3.5-5.1); Sodium 139 mEq/L (136-145); eGFR For African Americans > 60 (> 60); eGFR For Non-African Americans 59 (> 60)
[2019-01-19] MEDS: Piperacillin/Tazobactam 3.375 GM in 0.9 % Sodium Chloride Mini Bag 100 ML IVPB SCH ×2 (05:13→13:05)
[2019-01-19] MEDS ORDERED: Aminoglycoside Consult 1 EACH MC ONE (07:16)
[2019-01-19] MEDS: Insulin LISPRO 300 UNITS/3 ML VIAL SQ SCH ×7 (07:52→21:21)
[2019-01-19] MEDS: Metoprolol XL (24 HR) Succ 50 MG TAB.ER.24H PO SCH (09:38)
[2019-01-19] MEDS: FLUoxetine 20 MG CAPSULE PO SCH (09:38)
[2019-01-19] MEDS ORDERED: Ampicillin/Sulbactam 3,000 MG in 0.9 % Sodium Chloride Mini Bag 100 ML IVPB SCH (18:00)
[2019-01-19] MEDS: Ampicillin/Sulbactam 3,000 MG in 0.9 % Sodium Chloride Mini Bag 100 ML IVPB SCH (19:52)
[2019-01-19] MEDS: Insulin DETEMIR 100 UNIT/ML X5UNITS SQ SCH (21:22)
[2019-01-20] MEDS: Ampicillin/Sulbactam 3,000 MG in 0.9 % Sodium Chloride Mini Bag 100 ML IVPB SCH ×4 (00:14→18:19)
[2019-01-20] MEDS ORDERED: Bacitracin 50,000 UNIT, Sodium Chloride IRRigation 1,000 ML IR ONE (06:00)
[2019-01-20 07:22] LABS: BUN/Creatinine Ratio 17 (6-26); Blood Urea Nitrogen 19 mg/dL (8-23); Calcium 8.9 mg/dL (8.6-10.3); Carbon Dioxide 26 mEq/L (23-29); Chloride 105 mEq/L (98-107); Glucose 178 mg/dL (70-105); Osmolality,Calculated 295 (280-300); Potassium 3.8 mEq/L (3.5-5.1); Sodium 139 mEq/L (136-145); eGFR For African Americans > 60 (> 60); eGFR For Non-African Americans > 60 (> 60)
[2019-01-20] MEDS: Insulin LISPRO 300 UNITS/3 ML VIAL SQ SCH ×7 (08:07→20:01)
[2019-01-20] MEDS: Metoprolol XL (24 HR) Succ 50 MG TAB.ER.24H PO SCH (08:08)
[2019-01-20] MEDS: FLUoxetine 20 MG CAPSULE PO SCH (08:08)
[2019-01-20] MEDS ORDERED: ARIPiprazole 5 MG TABLET PO SCH (09:00)
[2019-01-20] MEDS ORDERED: Lidocaine 1% 20 ML MDV ONE (15:30)
[2019-01-20] MEDS ORDERED: *HR* Midazolam HCl 2 MG/2 ML VIAL ONE (15:31)
[2019-01-20] MEDS ORDERED: Vancomycin 1,000 MG VIAL ONE (15:31)
[2019-01-20] MEDS ORDERED: Bupivacaine/EPI 1:200k 0.25%PF 30 ML VIAL ONE (15:31)
[2019-01-20] MEDS ORDERED: Propofol 500 MG/50 ML INFUS..BTL ONE (15:31)
[2019-01-20] MEDS ORDERED: Acetaminophen IV 1,000 MG/100 ML INFUS..BTL ONE (15:56)
[2019-01-20] MEDS ORDERED: Calcium Gluconate 1,000 MG/10 ML VIAL ONE (16:05)
[2019-01-20] MEDS ORDERED: Naloxone 0.4 MG/ML INJ IVP PRN (17:19)
[2019-01-20] MEDS ORDERED: Dextrose Gel 15 GM/37.5 ML TUBE PO PRN ×2 (17:19)
[2019-01-20] MEDS ORDERED: D5% in Water 1,000 ML IVC PRN (17:19)
[2019-01-20] MEDS ORDERED: *HR* Dextrose 50 % in Water (Syg) 50 ML SYRINGE IVP PRN (17:19)
[2019-01-20] MEDS: Insulin DETEMIR 100 UNIT/ML X5UNITS SQ SCH (20:01)
[2019-01-21] MEDS: Ampicillin/Sulbactam 3,000 MG in 0.9 % Sodium Chloride Mini Bag 100 ML IVPB SCH ×5 (00:05→23:40)
[2019-01-21] MEDS ORDERED: Acetaminophen IV 1,000 MG/100 ML INFUS..BTL IVPB ONE (03:37)
[2019-01-21 06:10] LABS: Hematocrit 36.3 % (37.5-50.1); Hemoglobin 11.8 g/dL (12.9-16.9); Mean Corpuscular HGB Conc 32.5 g/dL (31.6-35.5); Mean Corpuscular Hemoglobin 30.9 pg (28.0-33.3); Platelet Count 167 K/mcL (140-400); Red Blood Count 3.82 M/mcL (4.19-5.50); Red Cell Distribution Width 15.9 % (11.5-14.5); White Blood Count 8.4 K/mcL (4.3-11.1)
[2019-01-21 06:31] LABS: BUN/Creatinine Ratio 21 (6-26); Blood Urea Nitrogen 20 mg/dL (8-23); Calcium 8.8 mg/dL (8.6-10.3); Carbon Dioxide 24 mEq/L (23-29); Chloride 105 mEq/L (98-107); Glucose 109 mg/dL (70-105); Osmolality,Calculated 289 (280-300); Potassium 3.7 mEq/L (3.5-5.1); Sodium 138 mEq/L (136-145); eGFR For African Americans > 60 (> 60); eGFR For Non-African Americans > 60 (> 60)
[2019-01-21] MEDS: ARIPiprazole 5 MG TABLET PO SCH (08:18)
[2019-01-21] MEDS: Metoprolol XL (24 HR) Succ 50 MG TAB.ER.24H PO SCH (08:19)
[2019-01-21] MEDS: FLUoxetine 20 MG CAPSULE PO SCH (08:19)
[2019-01-21] MEDS: Insulin LISPRO 300 UNITS/3 ML VIAL SQ SCH ×7 (08:24→22:25)
[2019-01-21] MEDS: Nicotine 21 MG PATCH.TD24 TD SCH (13:02)
[2019-01-21] MEDS: *HR* Heparin 5,000 UNIT/ML VIAL SQ SCH (22:26)
[2019-01-21] MEDS: Insulin DETEMIR 100 UNIT/ML X5UNITS SQ SCH (22:26)
[2019-01-22] MEDS: *HR* Heparin 5,000 UNIT/ML VIAL SQ SCH ×3 (05:33→20:46)
[2019-01-22] MEDS: Ampicillin/Sulbactam 3,000 MG in 0.9 % Sodium Chloride Mini Bag 100 ML IVPB SCH ×3 (05:33→18:18)
[2019-01-22 06:33] LABS: Hematocrit 37.2 % (37.5-50.1); Hemoglobin 12.7 g/dL (12.9-16.9); Mean Corpuscular HGB Conc 34.1 g/dL (31.6-35.5); Mean Corpuscular Hemoglobin 31.2 pg (28.0-33.3); Mean Corpuscular Volume 91.4 fL (83.0-100.0); Mean Platelet Volume 9.8 fL (9.4-12.4); Platelet Count 200 K/mcL (140-400); Red Blood Count 4.07 M/mcL (4.19-5.50); Red Cell Distribution Width 15.8 % (11.5-14.5); White Blood Count 7.5 K/mcL (4.3-11.1)
[2019-01-22 06:50] LABS: BUN/Creatinine Ratio 13 (6-26); Blood Urea Nitrogen 13 mg/dL (8-23); Calcium 9.3 mg/dL (8.6-10.3); Carbon Dioxide 27 mEq/L (23-29); Chloride 103 mEq/L (98-107); Glucose 75 mg/dL (70-105); Osmolality,Calculated 289 (280-300); Potassium 3.4 mEq/L (3.5-5.1); Sodium 140 mEq/L (136-145); eGFR For African Americans > 60 (> 60); eGFR For Non-African Americans > 60 (> 60)
[2019-01-22] MEDS: Metoprolol XL (24 HR) Succ 50 MG TAB.ER.24H PO SCH (08:38)
[2019-01-22] MEDS: ARIPiprazole 5 MG TABLET PO SCH (08:38)
[2019-01-22] MEDS: FLUoxetine 20 MG CAPSULE PO SCH (08:38)
[2019-01-22] MEDS: Nicotine 21 MG PATCH.TD24 TD SCH (08:39)
[2019-01-22] MEDS: Insulin LISPRO 300 UNITS/3 ML VIAL SQ SCH ×7 (08:46→20:46)
[2019-01-22 08:47] LABS: Estimated Average Glucose 186 mg/dl
[2019-01-22] MEDS ORDERED: 0.9 % Sodium Chloride Mini Bag 100 ML ONE (13:21)
[2019-01-22] MEDS ORDERED: traMADol 50 MG TABLET PO PRN (15:10)
[2019-01-22] MEDS: Insulin DETEMIR 100 UNIT/ML X5UNITS SQ SCH (20:46)
[2019-01-23] MEDS: Ampicillin/Sulbactam 3,000 MG in 0.9 % Sodium Chloride Mini Bag 100 ML IVPB SCH ×5 (00:28→23:55)
[2019-01-23] MEDS: *HR* Heparin 5,000 UNIT/ML VIAL SQ SCH ×3 (05:33→21:01)
[2019-01-23 07:06] LABS: Hematocrit 38.5 % (37.5-50.1); Hemoglobin 12.4 g/dL (12.9-16.9); Mean Corpuscular HGB Conc 32.2 g/dL (31.6-35.5); Mean Corpuscular Hemoglobin 31.1 pg (28.0-33.3); Mean Corpuscular Volume 96.5 fL (83.0-100.0); Mean Platelet Volume 9.8 fL (9.4-12.4); Platelet Count 182 K/mcL (140-400); Red Blood Count 3.99 M/mcL (4.19-5.50); Red Cell Distribution Width 15.9 % (11.5-14.5)
[2019-01-23 07:28] LABS: BUN/Creatinine Ratio 18 (6-26); Blood Urea Nitrogen 17 mg/dL (8-23); Calcium 9.4 mg/dL (8.6-10.3); Carbon Dioxide 25 mEq/L (23-29); Chloride 103 mEq/L (98-107); Glucose 113 mg/dL (70-105); Osmolality,Calculated 288 (280-300); Potassium 3.8 mEq/L (3.5-5.1); Sodium 138 mEq/L (136-145); eGFR For African Americans > 60 (> 60); eGFR For Non-African Americans > 60 (> 60)
[2019-01-23] MEDS: Nicotine 21 MG PATCH.TD24 TD SCH (09:26)
[2019-01-23] MEDS: Insulin LISPRO 300 UNITS/3 ML VIAL SQ SCH ×7 (09:26→20:55)
[2019-01-23] MEDS: Metoprolol XL (24 HR) Succ 50 MG TAB.ER.24H PO SCH (09:27)
[2019-01-23] MEDS: ARIPiprazole 5 MG TABLET PO SCH (09:27)
[2019-01-23] MEDS: FLUoxetine 20 MG CAPSULE PO SCH (09:27)
[2019-01-23] MEDS: Insulin DETEMIR 100 UNIT/ML X5UNITS SQ SCH (21:01)
[2019-01-24 04:51] LABS: Basophils # 0.1 K/mcL (0.0-0.2); Basophils % 0.7 %; Eosinophils # 0.3 K/mcL (0.0-0.6); Eosinophils % 4.2 %; Hematocrit 37.4 % (37.5-50.1); Hemoglobin 11.9 g/dL (12.9-16.9); Immature Granulocytes % 0.3 % (0-4); Lymphocytes # 1.7 K/mcL (0.6-4.6); Lymphocytes % 24.5 %; Mean Corpuscular HGB Conc 31.8 g/dL (31.6-35.5); Mean Corpuscular Hemoglobin 30.7 pg (28.0-33.3); Mean Corpuscular Volume 96.4 fL (83.0-100.0); Mean Platelet Volume 10.1 fL (9.4-12.4); Monocytes # 0.5 K/mcL (0.0-1.3); Monocytes % 7.3 %; Neutrophils # 4.3 K/mcL (1.6-8.9); Platelet Count 177 K/mcL (140-400); Red Blood Count 3.88 M/mcL (4.19-5.50); Red Cell Distribution Width 15.8 % (11.5-14.5); White Blood Count 6.8 K/mcL (4.3-11.1)
[2019-01-24 05:09] LABS: BUN/Creatinine Ratio 16 (6-26); Blood Urea Nitrogen 17 mg/dL (8-23); Calcium 9.1 mg/dL (8.6-10.3); Carbon Dioxide 24 mEq/L (23-29); Chloride 105 mEq/L (98-107); Glucose 105 mg/dL (70-105); Magnesium 1.6 mg/dL (1.6-2.6); Osmolality,Calculated 290 (280-300); Potassium 3.6 mEq/L (3.5-5.1); Sodium 139 mEq/L (136-145); eGFR For African Americans > 60 (> 60); eGFR For Non-African Americans > 60 (> 60)
[2019-01-24] MEDS: ARIPiprazole 5 MG TABLET PO SCH (06:02)
[2019-01-24] MEDS: Metoprolol XL (24 HR) Succ 50 MG TAB.ER.24H PO SCH (06:02)
[2019-01-24] MEDS: FLUoxetine 20 MG CAPSULE PO SCH (06:02)
[2019-01-24] MEDS: *HR* Heparin 5,000 UNIT/ML VIAL SQ SCH (06:02)
[2019-01-24] MEDS: Nicotine 21 MG PATCH.TD24 TD SCH (06:03)
[2019-01-24] MEDS: Ampicillin/Sulbactam 3,000 MG in 0.9 % Sodium Chloride Mini Bag 100 ML IVPB SCH (06:04)
[2019-01-24] MEDS ORDERED: Dextrose Gel 15 GM/37.5 ML TUBE PO PRN ×2 (07:20)
[2019-01-24] MEDS ORDERED: D5% in Water 1,000 ML IVC PRN (07:20)
[2019-01-24] MEDS ORDERED: *HR* Dextrose 50 % in Water (Syg) 50 ML SYRINGE IVP PRN (07:20)
[2019-01-24] MEDS ORDERED: Naloxone 0.4 MG/ML INJ IVP PRN (07:20)
[2019-01-24] MEDS: Insulin LISPRO 300 UNITS/3 ML VIAL SQ SCH (21:19)
[2019-01-24] MEDS: Insulin DETEMIR 100 UNIT/ML X5UNITS SQ SCH (21:29)
[2019-01-25] MEDS: Ampicillin/Sulbactam 3,000 MG in 0.9 % Sodium Chloride Mini Bag 100 ML IVPB SCH ×7 (00:09→21:20)
[2019-01-25] MEDS: Insulin LISPRO 300 UNITS/3 ML VIAL SQ SCH ×10 (07:12→21:14)
[2019-01-25] MEDS: ARIPiprazole 5 MG TABLET PO SCH ×2 (07:14→09:21)
[2019-01-25] MEDS: Nicotine 21 MG PATCH.TD24 TD SCH ×2 (07:15→09:21)
[2019-01-25] MEDS: FLUoxetine 20 MG CAPSULE PO SCH ×2 (07:15→09:21)
[2019-01-25] MEDS: Metoprolol XL (24 HR) Succ 50 MG TAB.ER.24H PO SCH ×2 (07:16→09:21)
[2019-01-25 08:11] LABS: Basophils % 0.6 %; Eosinophils # 0.3 K/mcL (0.0-0.6); Eosinophils % 3.8 %; Hematocrit 39.1 % (37.5-50.1); Immature Granulocytes % 0.3 % (0-4); Lymphocytes # 1.6 K/mcL (0.6-4.6); Lymphocytes % 23.3 %; Mean Corpuscular HGB Conc 33.2 g/dL (31.6-35.5); Mean Corpuscular Hemoglobin 31.1 pg (28.0-33.3); Mean Corpuscular Volume 93.5 fL (83.0-100.0); Mean Platelet Volume 9.6 fL (9.4-12.4); Monocytes # 0.5 K/mcL (0.0-1.3); Monocytes % 7.4 %; Neutrophils # 4.5 K/mcL (1.6-8.9); Platelet Count 190 K/mcL (140-400); Red Blood Count 4.18 M/mcL (4.19-5.50); Red Cell Distribution Width 15.7 % (11.5-14.5); Segmented Neutrophils % 64.6 %; White Blood Count 6.9 K/mcL (4.3-11.1)
[2019-01-25 08:35] LABS: Alanine Aminotransferase 14 Units/L (7-52); Albumin 3.9 g/dL (3.5-5.7); Albumin/Globulin Ratio 1.3 (1.1-2.2); Alkaline Phosphatase 81 Units/L (34-104); Aspartate Amino Transferase 19 Units/L (13-39); BUN/Creatinine Ratio 16 (6-26); Bilirubin,Total 0.4 mg/dL (0.3-1.0); Blood Urea Nitrogen 15 mg/dL (8-23); Calcium 9.5 mg/dL (8.6-10.3); Carbon Dioxide 29 mEq/L (23-29); Chloride 104 mEq/L (98-107); Glucose 79 mg/dL (70-105); Magnesium 1.8 mg/dL (1.6-2.6); Osmolality,Calculated 290 (280-300); Potassium 3.8 mEq/L (3.5-5.1); Sodium 140 mEq/L (136-145); Total Protein 6.9 g/dL (6.4-8.9); eGFR For African Americans > 60 (> 60); eGFR For Non-African Americans > 60 (> 60)
[2019-01-25] MEDS ORDERED: 0.9 % Sodium Chloride Mini Bag 100 ML ONE (09:51)
[2019-01-25] MEDS: Insulin DETEMIR 100 UNIT/ML X5UNITS SQ SCH (21:20)
[2019-01-26] MEDS: Ampicillin/Sulbactam 3,000 MG in 0.9 % Sodium Chloride Mini Bag 100 ML IVPB SCH ×4 (04:44→21:54)
[2019-01-26 06:57] LABS: Basophils # 0.1 K/mcL (0.0-0.2); Basophils % 0.7 %; Eosinophils # 0.3 K/mcL (0.0-0.6); Eosinophils % 3.8 %; Hematocrit 38.1 % (37.5-50.1); Hemoglobin 12.3 g/dL (12.9-16.9); Immature Granulocytes % 0.3 % (0-4); Lymphocytes # 1.6 K/mcL (0.6-4.6); Lymphocytes % 22.7 %; Mean Corpuscular HGB Conc 32.3 g/dL (31.6-35.5); Mean Platelet Volume 10.1 fL (9.4-12.4); Monocytes # 0.6 K/mcL (0.0-1.3); Monocytes % 8.2 %; Neutrophils # 4.4 K/mcL (1.6-8.9); Platelet Count 158 K/mcL (140-400); Red Blood Count 3.97 M/mcL (4.19-5.50); Red Cell Distribution Width 15.3 % (11.5-14.5); Segmented Neutrophils % 64.3 %; White Blood Count 6.9 K/mcL (4.3-11.1)
[2019-01-26 07:15] LABS: BUN/Creatinine Ratio 17 (6-26); Blood Urea Nitrogen 18 mg/dL (8-23); Calcium 9.4 mg/dL (8.6-10.3); Carbon Dioxide 29 mEq/L (23-29); Chloride 102 mEq/L (98-107); Glucose 101 mg/dL (70-105); Magnesium 1.6 mg/dL (1.6-2.6); Osmolality,Calculated 288 (280-300); Potassium 3.7 mEq/L (3.5-5.1); Sodium 138 mEq/L (136-145); eGFR For African Americans > 60 (> 60); eGFR For Non-African Americans > 60 (> 60)
[2019-01-26] MEDS: Insulin LISPRO 300 UNITS/3 ML VIAL SQ SCH ×7 (07:23→21:55)
[2019-01-26] MEDS: Metoprolol XL (24 HR) Succ 50 MG TAB.ER.24H PO SCH (08:04)
[2019-01-26] MEDS: Nicotine 21 MG PATCH.TD24 TD SCH (08:05)
[2019-01-26] MEDS: ARIPiprazole 5 MG TABLET PO SCH (08:05)
[2019-01-26] MEDS: FLUoxetine 20 MG CAPSULE PO SCH (08:05)
[2019-01-26] MEDS ORDERED: Lidocaine 1% 20 ML MDV INFILT ONE (09:37)
[2019-01-26] MEDS: Insulin DETEMIR 100 UNIT/ML X5UNITS SQ SCH (21:55)
[2019-01-26] MEDS ORDERED: Acetaminophen IV 1,000 MG/100 ML INFUS..BTL IVPB ONE (22:28)
[2019-01-27] MEDS: Ampicillin/Sulbactam 3,000 MG in 0.9 % Sodium Chloride Mini Bag 100 ML IVPB SCH ×4 (02:45→21:36)
[2019-01-27] MEDS: Nicotine 21 MG PATCH.TD24 TD SCH (07:19)
[2019-01-27] MEDS: Metoprolol XL (24 HR) Succ 50 MG TAB.ER.24H PO SCH (07:20)
[2019-01-27] MEDS: FLUoxetine 20 MG CAPSULE PO SCH (07:20)
[2019-01-27] MEDS: ARIPiprazole 5 MG TABLET PO SCH (07:20)
[2019-01-27] MEDS: Insulin LISPRO 300 UNITS/3 ML VIAL SQ SCH ×7 (07:27→21:42)
[2019-01-27 09:39] LABS: Basophils % 0.6 %; Eosinophils # 0.2 K/mcL (0.0-0.6); Eosinophils % 2.8 %; Hematocrit 37.4 % (37.5-50.1); Hemoglobin 11.9 g/dL (12.9-16.9); Immature Granulocytes % 0.1 % (0-4); Lymphocytes # 1.3 K/mcL (0.6-4.6); Lymphocytes % 20.1 %; Mean Corpuscular HGB Conc 31.8 g/dL (31.6-35.5); Mean Corpuscular Hemoglobin 31.2 pg (28.0-33.3); Mean Corpuscular Volume 97.9 fL (83.0-100.0); Mean Platelet Volume 9.8 fL (9.4-12.4); Monocytes # 0.4 K/mcL (0.0-1.3); Monocytes % 5.4 %; Neutrophils # 4.7 K/mcL (1.6-8.9); Platelet Count 155 K/mcL (140-400); Red Blood Count 3.82 M/mcL (4.19-5.50); Red Cell Distribution Width 15.5 % (11.5-14.5); White Blood Count 6.7 K/mcL (4.3-11.1)
[2019-01-27 09:58] LABS: BUN/Creatinine Ratio 18 (6-26); Blood Urea Nitrogen 18 mg/dL (8-23); Calcium 9.1 mg/dL (8.6-10.3); Carbon Dioxide 26 mEq/L (23-29); Chloride 102 mEq/L (98-107); Glucose 212 mg/dL (70-105); Magnesium 1.6 mg/dL (1.6-2.6); Osmolality,Calculated 290 (280-300); Sodium 136 mEq/L (136-145); eGFR For African Americans > 60 (> 60); eGFR For Non-African Americans > 60 (> 60)
[2019-01-27] MEDS ORDERED: Acetaminophen 325 MG TABLET PO PRN (14:42)
[2019-01-27] MEDS: Insulin DETEMIR 100 UNIT/ML X5UNITS SQ SCH (21:41)
[2019-01-28] MEDS: Ampicillin/Sulbactam 3,000 MG in 0.9 % Sodium Chloride Mini Bag 100 ML IVPB SCH ×4 (03:16→20:31)
[2019-01-28 03:36] LABS: Basophils # 0.1 K/mcL (0.0-0.2); Basophils % 0.7 %; Eosinophils # 0.3 K/mcL (0.0-0.6); Eosinophils % 3.8 %; Hematocrit 37.8 % (37.5-50.1); Hemoglobin 12.4 g/dL (12.9-16.9); Immature Granulocytes % 0.3 % (0-4); Lymphocytes # 1.8 K/mcL (0.6-4.6); Lymphocytes % 26.6 %; Mean Corpuscular HGB Conc 32.8 g/dL (31.6-35.5); Mean Corpuscular Hemoglobin 31.4 pg (28.0-33.3); Mean Corpuscular Volume 95.7 fL (83.0-100.0); Mean Platelet Volume 9.4 fL (9.4-12.4); Monocytes # 0.6 K/mcL (0.0-1.3); Monocytes % 8.2 %; Neutrophils # 4.1 K/mcL (1.6-8.9); Platelet Count 150 K/mcL (140-400); Red Blood Count 3.95 M/mcL (4.19-5.50); Red Cell Distribution Width 15.2 % (11.5-14.5); Segmented Neutrophils % 60.4 %; White Blood Count 6.8 K/mcL (4.3-11.1)
[2019-01-28 03:55] LABS: BUN/Creatinine Ratio 17 (6-26); Blood Urea Nitrogen 17 mg/dL (8-23); Calcium 9.4 mg/dL (8.6-10.3); Carbon Dioxide 27 mEq/L (23-29); Chloride 103 mEq/L (98-107); Glucose 131 mg/dL (70-105); Osmolality,Calculated 289 (280-300); Potassium 3.7 mEq/L (3.5-5.1); Sodium 138 mEq/L (136-145); eGFR For African Americans > 60 (> 60); eGFR For Non-African Americans > 60 (> 60)
[2019-01-28] MEDS: Nicotine 21 MG PATCH.TD24 TD SCH (07:18)
[2019-01-28] MEDS: FLUoxetine 20 MG CAPSULE PO SCH (07:18)
[2019-01-28] MEDS: ARIPiprazole 5 MG TABLET PO SCH (07:19)
[2019-01-28] MEDS: Metoprolol XL (24 HR) Succ 50 MG TAB.ER.24H PO SCH (07:19)
[2019-01-28] MEDS: Insulin LISPRO 300 UNITS/3 ML VIAL SQ SCH ×7 (08:05→20:26)
[2019-01-28] MEDS: Insulin DETEMIR 100 UNIT/ML X5UNITS SQ SCH (20:31)
[2019-01-29] MEDS: Ampicillin/Sulbactam 3,000 MG in 0.9 % Sodium Chloride Mini Bag 100 ML IVPB SCH ×5 (03:14→23:34)
[2019-01-29] MEDS: Insulin LISPRO 300 UNITS/3 ML VIAL SQ SCH ×7 (08:44→20:47)
[2019-01-29] MEDS: ARIPiprazole 5 MG TABLET PO SCH (08:46)
[2019-01-29] MEDS: FLUoxetine 20 MG CAPSULE PO SCH (08:46)
[2019-01-29] MEDS: Metoprolol XL (24 HR) Succ 50 MG TAB.ER.24H PO SCH (08:46)
[2019-01-29] MEDS: Nicotine 21 MG PATCH.TD24 TD SCH (08:47)
[2019-01-29] MEDS: Insulin DETEMIR 100 UNIT/ML X5UNITS SQ SCH (19:57)
[2019-01-30] MEDS: Ampicillin/Sulbactam 3,000 MG in 0.9 % Sodium Chloride Mini Bag 100 ML IVPB SCH (04:19)
[2019-01-30 07:03] VITALS: BP 131/81
[2019-01-30] MEDS: Insulin LISPRO 300 UNITS/3 ML VIAL SQ SCH (08:05)
== END 2019-01-30 08:46 | DRG 314 ==
LOC: 3BNU 15:12 → EMEROOARM 15:12 → OBSVTOIN 17:47 → SUATTDRO 17:47 → 3BNU 17:50
PROVIDERS: ADMIT Internal Medicine; ATTEND Internal Medicine

== ENCOUNTER 2019-10-12 14:22 | Inpatient (IN) ==
[2019-10-12] MEDS ORDERED: Cefepime HCl 1,000 MG in Water for inj. (sterile) 10 ML IVP STA (16:38)
[2019-10-12 16:42] LABS: Basophils # 0.1 K/mcL (0.0-0.2); Basophils % 0.5 %; Eosinophils # 0.3 K/mcL (0.0-0.6); Eosinophils % 2.4 %; Hematocrit 39.1 % (37.5-50.1); Immature Granulocytes % 0.4 % (0-4); Lymphocytes # 2.1 K/mcL (0.6-4.6); Lymphocytes % 16.5 %; Mean Corpuscular HGB Conc 33.2 g/dL (31.6-35.5); Mean Corpuscular Hemoglobin 32.4 pg (28.0-33.3); Mean Corpuscular Volume 97.5 fL (83.0-100.0); Mean Platelet Volume 9.4 fL (9.4-12.4); Monocytes % 7.5 %; Neutrophils # 9.4 K/mcL (1.6-8.9); Platelet Count 180 K/mcL (140-400); Red Blood Count 4.01 M/mcL (4.19-5.50); Red Cell Distribution Width 15.1 % (11.5-14.5); Segmented Neutrophils % 72.7 %; White Blood Count 12.9 K/mcL (4.3-11.1)
[2019-10-12 16:47] LABS: INR 1.1
[2019-10-12 17:13] LABS: Calcium 9.8 mg/dL (8.6-10.3); Potassium 4.3 mEq/L (3.5-5.1)
[2019-10-12] MEDS ORDERED: 0.9 % Sodium Chloride 1,000 ML IVC SCH ×2 (17:45→18:06)
[2019-10-12] MEDS ORDERED: Acetaminophen 325 MG TABLET PO PRN (18:03)
[2019-10-12] MEDS: Vancomycin 1,250 MG/262.5 ML IV.SOLN IVPB SCH (20:29)
[2019-10-12] MEDS: Piperacillin/Tazobactam 3.375 GM in 0.9 % Sodium Chloride Mini Bag 100 ML IVPB SCH (20:29)
[2019-10-12] MEDS: Insulin DETEMIR 100 UNIT/ML X5UNITS SQ SCH (20:30)
[2019-10-13 03:16] LABS: Basophils % 0.5 %; Eosinophils # 0.3 K/mcL (0.0-0.6); Eosinophils % 3.6 %; Hematocrit 35.9 % (37.5-50.1); Hemoglobin 11.8 g/dL (12.9-16.9); Immature Granulocytes % 0.4 % (0-4); Lymphocytes % 12.3 %; Mean Corpuscular HGB Conc 32.9 g/dL (31.6-35.5); Mean Corpuscular Hemoglobin 31.7 pg (28.0-33.3); Mean Corpuscular Volume 96.5 fL (83.0-100.0); Mean Platelet Volume 9.5 fL (9.4-12.4); Monocytes # 0.8 K/mcL (0.0-1.3); Monocytes % 8.9 %; Neutrophils # 6.2 K/mcL (1.6-8.9); Platelet Count 144 K/mcL (140-400); Red Blood Count 3.72 M/mcL (4.19-5.50); Red Cell Distribution Width 14.6 % (11.5-14.5); Segmented Neutrophils % 74.3 %; White Blood Count 8.4 K/mcL (4.3-11.1)
[2019-10-13] MEDS: Piperacillin/Tazobactam 3.375 GM in 0.9 % Sodium Chloride Mini Bag 100 ML IVPB SCH ×3 (03:17→20:44)
[2019-10-13 03:34] LABS: Calcium 9.2 mg/dL (8.6-10.3); Potassium 3.8 mEq/L (3.5-5.1)
[2019-10-13] MEDS ORDERED: 0.9 % Sodium Chloride 1,000 ML IVC SCH (07:15)
[2019-10-13] MEDS ORDERED: 0.9 % Sodium Chloride 500 ML IVC SCH (07:45)
[2019-10-13] MEDS ORDERED: 0.9 % Sodium Chloride 500 ML IV ONE (08:15)
[2019-10-13] MEDS: Metoprolol XL (24 HR) Succ 50 MG TAB.ER.24H PO SCH (08:34)
[2019-10-13] MEDS: ARIPiprazole 5 MG TABLET PO SCH (08:34)
[2019-10-13] MEDS: FLUoxetine 20 MG CAPSULE PO SCH (08:34)
[2019-10-13] MEDS: Nicotine 14 MG PATCH.TD24 TD SCH (08:35)
[2019-10-13] MEDS ORDERED: D5% in Water 1,000 ML IVC PRN (09:44)
[2019-10-13] MEDS ORDERED: *HR* Dextrose 50 % in Water (Vial) 50 ML VIAL IVP PRN (09:44)
[2019-10-13] MEDS ORDERED: Dextrose Gel 15 GM/37.5 ML TUBE PO PRN ×2 (09:44)
[2019-10-13] MEDS: Insulin LISPRO 300 UNITS/3 ML VIAL SQ SCH ×2 (11:48→18:40)
[2019-10-13] MEDS: *HR* Heparin 5,000 UNIT/ML VIAL SQ SCH (18:27)
[2019-10-13] MEDS: Vancomycin 1,250 MG/262.5 ML IV.SOLN IVPB SCH (18:27)
[2019-10-13] MEDS: Insulin DETEMIR 100 UNIT/ML X5UNITS SQ SCH (20:45)
[2019-10-14] MEDS: Insulin LISPRO 300 UNITS/3 ML VIAL SQ SCH ×5 (00:11→22:01)
[2019-10-14] MEDS: Piperacillin/Tazobactam 3.375 GM in 0.9 % Sodium Chloride Mini Bag 100 ML IVPB SCH ×3 (04:33→22:00)
[2019-10-14] MEDS: *HR* Heparin 5,000 UNIT/ML VIAL SQ SCH ×2 (04:39→17:16)
[2019-10-14 07:56] LABS: Hematocrit 34.9 % (37.5-50.1); Hemoglobin 11.3 g/dL (12.9-16.9); Mean Corpuscular HGB Conc 32.4 g/dL (31.6-35.5); Mean Corpuscular Volume 95.6 fL (83.0-100.0); Mean Platelet Volume 9.6 fL (9.4-12.4); Platelet Count 152 K/mcL (140-400); Red Blood Count 3.65 M/mcL (4.19-5.50); Red Cell Distribution Width 14.7 % (11.5-14.5); White Blood Count 7.7 K/mcL (4.3-11.1)
[2019-10-14 08:15] LABS: BUN/Creatinine Ratio 15 (6-26); Blood Urea Nitrogen 18 mg/dL (8-23); Calcium 9.3 mg/dL (8.6-10.3); Carbon Dioxide 27 mEq/L (23-29); Chloride 104 mEq/L (98-107); Glucose 68 mg/dL (70-105); Osmolality,Calculated 286 (280-300); Sodium 138 mEq/L (136-145); eGFR For African Americans > 60 (> 60); eGFR For Non-African Americans > 60 (> 60)
[2019-10-14] MEDS: FLUoxetine 20 MG CAPSULE PO SCH (09:36)
[2019-10-14] MEDS: Metoprolol XL (24 HR) Succ 50 MG TAB.ER.24H PO SCH (09:36)
[2019-10-14] MEDS: Nicotine 14 MG PATCH.TD24 TD SCH (09:36)
[2019-10-14] MEDS: ARIPiprazole 5 MG TABLET PO SCH (09:36)
[2019-10-14] MEDS: Vancomycin 1,250 MG/262.5 ML IV.SOLN IVPB SCH (17:15)
[2019-10-14] MEDS: traZODone 50 MG TABLET PO SCH (21:59)
[2019-10-14] MEDS: Insulin DETEMIR 100 UNIT/ML X5UNITS SQ SCH (22:00)
[2019-10-15] MEDS: 0.9 % Sodium Chloride 1,000 ML IVC SCH ×2 (04:53→10:37)
[2019-10-15] MEDS: Piperacillin/Tazobactam 3.375 GM in 0.9 % Sodium Chloride Mini Bag 100 ML IVPB SCH ×3 (04:55→21:12)
[2019-10-15] MEDS: *HR* Heparin 5,000 UNIT/ML VIAL SQ SCH ×2 (04:58→17:52)
[2019-10-15 05:31] LABS: Basophils % 0.5 %; Eosinophils # 0.5 K/mcL (0.0-0.6); Eosinophils % 5.7 %; Hematocrit 34.8 % (37.5-50.1); Hemoglobin 11.5 g/dL (12.9-16.9); Immature Granulocytes % 0.4 % (0-4); Lymphocytes # 1.8 K/mcL (0.6-4.6); Lymphocytes % 21.2 %; Mean Corpuscular Hemoglobin 32.4 pg (28.0-33.3); Mean Platelet Volume 9.6 fL (9.4-12.4); Monocytes # 0.6 K/mcL (0.0-1.3); Monocytes % 7.5 %; Neutrophils # 5.3 K/mcL (1.6-8.9); Platelet Count 151 K/mcL (140-400); Red Blood Count 3.55 M/mcL (4.19-5.50); Red Cell Distribution Width 14.4 % (11.5-14.5); Segmented Neutrophils % 64.7 %; White Blood Count 8.2 K/mcL (4.3-11.1)
[2019-10-15 05:47] LABS: BUN/Creatinine Ratio 14 (6-26); Blood Urea Nitrogen 17 mg/dL (8-23); Calcium 9.1 mg/dL (8.6-10.3); Carbon Dioxide 26 mEq/L (23-29); Chloride 102 mEq/L (98-107); Glucose 122 mg/dL (70-105); Magnesium 1.4 mg/dL (1.6-2.6); Osmolality,Calculated 285 (280-300); Sodium 136 mEq/L (136-145); eGFR For African Americans > 60 (> 60); eGFR For Non-African Americans > 60 (> 60)
[2019-10-15] MEDS ORDERED: Isovue-300 200 mL Infus..BTL ONE (07:11)
[2019-10-15] MEDS ORDERED: *HR* Heparin 10,000 UNIT/10 ML VIAL ONE (07:11)
[2019-10-15] MEDS ORDERED: 0.9 % Sodium Chloride 1,000 ML ONE (07:12)
[2019-10-15] MEDS: Insulin LISPRO 300 UNITS/3 ML VIAL SQ SCH ×4 (08:09→21:19)
[2019-10-15] MEDS ORDERED: *HR* Midazolam HCl 2 MG/2 ML VIAL ONE (08:42)
[2019-10-15] MEDS ORDERED: *HR* FentaNYL (PF) 100 MCG/2 ML VIAL ONE (08:42)
[2019-10-15] MEDS ORDERED: FLUoxetine 20 MG CAPSULE PO SCH (09:00)
[2019-10-15 09:07] LABS: Estimated Average Glucose 226 mg/dl; Hemoglobin A1C 9.5 %
[2019-10-15] MEDS: ARIPiprazole 5 MG TABLET PO SCH (10:35)
[2019-10-15] MEDS: FLUoxetine 20 MG CAPSULE PO SCH (10:35)
[2019-10-15] MEDS: Metoprolol XL (24 HR) Succ 50 MG TAB.ER.24H PO SCH (10:35)
[2019-10-15] MEDS: Nicotine 14 MG PATCH.TD24 TD SCH (10:35)
[2019-10-15] MEDS ORDERED: Vancomycin 1,250 MG/262.5 ML IV.SOLN IVPB SCH (17:00)
[2019-10-15] MEDS: Insulin DETEMIR 100 UNIT/ML X5UNITS SQ SCH (21:19)
[2019-10-16 03:05] LABS: Basophils % 0.5 %; Eosinophils # 0.5 K/mcL (0.0-0.6); Eosinophils % 6.2 %; Hematocrit 34.5 % (37.5-50.1); Hemoglobin 11.2 g/dL (12.9-16.9); Immature Granulocytes % 0.3 % (0-4); Lymphocytes # 1.3 K/mcL (0.6-4.6); Lymphocytes % 17.6 %; Mean Corpuscular HGB Conc 32.5 g/dL (31.6-35.5); Mean Corpuscular Hemoglobin 31.4 pg (28.0-33.3); Mean Corpuscular Volume 96.6 fL (83.0-100.0); Mean Platelet Volume 9.3 fL (9.4-12.4); Monocytes # 0.5 K/mcL (0.0-1.3); Monocytes % 6.5 %; Neutrophils # 5.2 K/mcL (1.6-8.9); Platelet Count 143 K/mcL (140-400); Red Blood Count 3.57 M/mcL (4.19-5.50); Red Cell Distribution Width 14.5 % (11.5-14.5); Segmented Neutrophils % 68.9 %; White Blood Count 7.5 K/mcL (4.3-11.1)
[2019-10-16 03:20] LABS: BUN/Creatinine Ratio 12 (6-26); Blood Urea Nitrogen 16 mg/dL (8-23); Calcium 9.1 mg/dL (8.6-10.3); Carbon Dioxide 25 mEq/L (23-29); Chloride 103 mEq/L (98-107); Glucose 186 mg/dL (70-105); Magnesium 1.5 mg/dL (1.6-2.6); Osmolality,Calculated 288 (280-300); Potassium 4.1 mEq/L (3.5-5.1); Sodium 136 mEq/L (136-145); eGFR For African Americans > 60 (> 60); eGFR For Non-African Americans 53 (> 60)
[2019-10-16] MEDS: traZODone 50 MG TABLET PO SCH (05:37)
[2019-10-16] MEDS: Piperacillin/Tazobactam 3.375 GM in 0.9 % Sodium Chloride Mini Bag 100 ML IVPB SCH ×3 (05:44→20:15)
[2019-10-16] MEDS: *HR* Heparin 5,000 UNIT/ML VIAL SQ SCH ×3 (05:45→18:26)
[2019-10-16] MEDS: 0.9 % Sodium Chloride 1,000 ML IVC SCH ×3 (08:22→18:25)
[2019-10-16] MEDS: Nicotine 14 MG PATCH.TD24 TD SCH (08:24)
[2019-10-16] MEDS: ARIPiprazole 5 MG TABLET PO SCH (08:25)
[2019-10-16] MEDS: FLUoxetine 20 MG CAPSULE PO SCH (08:25)
[2019-10-16] MEDS: Metoprolol XL (24 HR) Succ 50 MG TAB.ER.24H PO SCH (08:26)
[2019-10-16] MEDS: Insulin LISPRO 300 UNITS/3 ML VIAL SQ SCH ×3 (08:54→14:41)
[2019-10-16] MEDS ORDERED: 0.9 % Sodium Chloride 1,000 ML IVC SCH (12:42)
[2019-10-16] MEDS ORDERED: *HR* FentaNYL (PF) 100 MCG/2 ML VIAL ONE (15:31)
[2019-10-16] MEDS ORDERED: *HR* Midazolam HCl 2 MG/2 ML VIAL ONE (15:31)
[2019-10-16] MEDS ORDERED: *HR* Propofol 200 MG/20 ML VIAL IVP ONE (15:32)
[2019-10-16] MEDS ORDERED: Lidocaine -MPF 2% 2 ML VIAL ONE (15:33)
[2019-10-16] MEDS ORDERED: Ondansetron 4 MG/2 ML VIAL ONE (15:33)
[2019-10-16] MEDS ORDERED: Vancomycin 1,000 MG VIAL ONE (16:15)
[2019-10-16] MEDS ORDERED: *HR* Labetalol 20 MG/4 ML SYRINGE IVP PRN ×2 (16:21→17:22)
[2019-10-16] MEDS ORDERED: Ondansetron 4 MG/2 ML VIAL IVP PRN ×2 (16:21→17:22)
[2019-10-16] MEDS ORDERED: *HR* OxyCODONE Immed Rel 5 MG TABLET PO PRN ×2 (16:21→17:22)
[2019-10-16] MEDS ORDERED: *HR* HYDROmorphone PF 0.5 MG/0.5 ML SYRINGE IVP PRN ×2 (16:21→17:22)
[2019-10-16] MEDS ORDERED: *HR* Promethazine 25 MG/ML VIAL IVP PRN ×2 (16:21→17:22)
[2019-10-16] MEDS ORDERED: D5% in Water 1,000 ML IVC PRN (17:22)
[2019-10-16] MEDS ORDERED: Acetaminophen 325 MG TABLET PO PRN (17:22)
[2019-10-16] MEDS ORDERED: Dextrose Gel 15 GM/37.5 ML TUBE PO PRN ×2 (17:22)
[2019-10-16] MEDS ORDERED: *HR* Dextrose 50 % in Water (Vial) 50 ML VIAL IVP PRN (17:22)
[2019-10-16] MEDS ORDERED: Vancomycin 1,000 MG, 0.9 % Sodium Chloride 1,000 ML IR ONE ×2 (17:30)
[2019-10-16] MEDS ORDERED: Insulin DETEMIR 100 UNIT/ML X5UNITS SQ SCH (21:00)
[2019-10-16] MEDS ORDERED: traZODone 50 MG TABLET PO SCH (21:00)
[2019-10-16] MEDS ORDERED: Insulin LISPRO 300 UNITS/3 ML VIAL SQ SCH (21:00)
[2019-10-17] MEDS: Piperacillin/Tazobactam 3.375 GM in 0.9 % Sodium Chloride Mini Bag 100 ML IVPB SCH ×2 (03:47→12:33)
[2019-10-17 05:19] LABS: Basophils % 0.5 %; Eosinophils # 0.5 K/mcL (0.0-0.6); Eosinophils % 6.1 %; Immature Granulocytes % 0.5 % (0-4); Lymphocytes # 1.4 K/mcL (0.6-4.6); Lymphocytes % 18.8 %; Mean Corpuscular HGB Conc 32.4 g/dL (31.6-35.5); Mean Corpuscular Hemoglobin 31.9 pg (28.0-33.3); Mean Corpuscular Volume 98.6 fL (83.0-100.0); Mean Platelet Volume 9.2 fL (9.4-12.4); Monocytes # 0.6 K/mcL (0.0-1.3); Monocytes % 7.5 %; Neutrophils # 5.1 K/mcL (1.6-8.9); Platelet Count 152 K/mcL (140-400); Red Blood Count 3.45 M/mcL (4.19-5.50); Red Cell Distribution Width 14.6 % (11.5-14.5); Segmented Neutrophils % 66.6 %; White Blood Count 7.6 K/mcL (4.3-11.1)
[2019-10-17] MEDS: *HR* Heparin 5,000 UNIT/ML VIAL SQ SCH (05:35)
[2019-10-17] MEDS: 0.9 % Sodium Chloride 1,000 ML IVC SCH (05:35)
[2019-10-17 05:38] LABS: BUN/Creatinine Ratio 12 (6-26); Blood Urea Nitrogen 15 mg/dL (8-23); Calcium 8.7 mg/dL (8.6-10.3); Carbon Dioxide 24 mEq/L (23-29); Chloride 106 mEq/L (98-107); Glucose 158 mg/dL (70-105); Magnesium 1.7 mg/dL (1.6-2.6); Osmolality,Calculated 286 (280-300); Potassium 4.1 mEq/L (3.5-5.1); Sodium 136 mEq/L (136-145); eGFR For African Americans > 60 (> 60); eGFR For Non-African Americans > 60 (> 60)
[2019-10-17] MEDS ORDERED: Nicotine 14 MG PATCH.TD24 TD SCH (09:00)
[2019-10-17] MEDS ORDERED: FLUoxetine 20 MG CAPSULE PO SCH (09:00)
[2019-10-17] MEDS ORDERED: Metoprolol XL (24 HR) Succ 50 MG TAB.ER.24H PO SCH (09:00)
[2019-10-17] MEDS ORDERED: ARIPiprazole 5 MG TABLET PO SCH (09:00)
[2019-10-17] MEDS: Insulin LISPRO 300 UNITS/3 ML VIAL SQ SCH ×2 (09:37→12:34)
[2019-10-17 12:41] VITALS: BP 118/74
[2019-10-17] MEDS ORDERED: Aminoglycoside Consult 1 EACH MC ONE (17:59)
== END 2019-10-17 18:00 | disposition home or self-care (01) | DRG 305 ==
LOC: EMEROOARM 14:22 → 3ANU 14:22 → SUATTDRO 10-13 11:49
PROVIDERS: ADMIT Internal Medicine; ATTEND Pharmacist